=== PATIENT | male | born 1970 | race Caucasian/White ===

== ENCOUNTER 2016-04-25 11:21 | Inpatient (IN) | payer OTHER ==
[~2016-04-25] VITALS: Ht 170.2 cm; Wt 64.0 kg
[~2016-04-25 11:21] MED LIST: ALBUAER2 INH; ATR25 PO; CLX/20 PO; HYDR-5688 PO; PRED10TA PO
[2016-04-25] MEDS ORDERED: ONDANSETRON INJ 2 MG/ML 2 ML VIAL IV STA (11:33)
[2016-04-25] MEDS ORDERED: KETOROLAC TROMETHAMINE 30 MG/ML VIAL IV STA (11:33)
[2016-04-25] MEDS ORDERED: SODIUM CHLORIDE 0.9% 1000ML 1,000 ML IV STA (11:33)
[2016-04-25] MEDS ORDERED: LYR50 PO (11:41)
--- NOTE | 2016-04-25 11:43 | EMERGENCY ROOM VISIT NOTE ---
History Report prepared by Katie: Terri Agrawal Under the Supervision of: Dr. Vladimir Ennis M.D. First contact with patient: 11:33 Chief Complaint: FLU LIKE SX Stated Complaint: VOMITING, SWEATS, DIRRHEA, COUGH History of Present Illness The patient is a 46 year old male who presents to the Emergency Room with complaints of a persistent illness that began three weeks ago. He currently rates his discomfort as a 6/10 in severity. The patient states that three weeks ago he started with persistent vomiting and diarrhea. He additionally notes dizziness, weight loss, a cough, sore throat, diaphoresis, and shortness of breath today. The patient states that he saw his primary care physician for his symptoms and notes that he had a chest x-ray ordered. He denies any abdominal pain. The patient states that he takes medications for his chronic back pain. He states that he drinks approximately a twelve pack of beer each day, but states that he drank two beers yesterday. The patient notes that he smokes approximately one pack of cigarettes per day. He notes that he has an inhaler that he tried using, but denies any relief of his symptoms. Source of History: patient Onset: three weeks ago Position: other (global) Symptom Intensity: 6/10 Quality: other (illness) Timing: other (persistent) Associated Symptoms: + SOB, + cough, + diaphoresis, + diarrhea, + sorethroat , + vomiting, No abdominal pain Note: Associated Symptoms: dizziness, weight loss Review of Systems See HPI for pertinent positives & negatives. A total of 10 systems reviewed and were otherwise negative. Past Medical & Surgical Medical Problems: (1) Anxiety State Nos (2) Cannabis Use, Unspecified, Uncomplicated (3) Coronary Atherosclerosis Of [place] Coronary Vessel (4) Hypertension Nos (5) Tobacco Use Disorder Family History FH: cancer FH: diabetes mellitus FH: heart disease FH: hypertension Social History Smoking Status: Current Every Day Smoker Alcohol Use: occasionally Drug Use: marijuana Housing Status: lives with family Occupation Status: unemployed Current/Historical Medications Scheduled Gabapentin (Gabapentin), 300 MG PO QID Pregabalin (Lyrica), Unknown Dose PO DAILY Scheduled PRN Cyclobenzaprine Hcl (Flexeril), 10 MG PO TID PRN for Muscle Spasm Allergies Coded Allergies: No Known Allergies (Unverified , 04/25/16) Physical Exam Vital Signs Date Time Temp Pulse Resp B/P Pulse Ox O2 Delivery O2 Flow Rate FiO2 04/25/16 14:24 122/89 04/25/16 13:01 148/88 04/25/16 11:26 37.0 118 24 127/84 97 Room Air Physical Exam GENERAL: Patient is a healthy-appearing well-nourished HEAD: Normocephalic atraumatic EYES: Ocular movements intact pupils equal and react to light OROPHARYNX mucous membranes are moist no exudates present no erythema or edema present NECK: Supple no nuchal rigidity CHEST: Good equal expansion LUNGS: Slight wheeze on the right base CARDIAC: Normal S1 and S2 ABDOMEN: Soft nontender no guarding BACK: No CVA tenderness EXTREMITIES: No pain upon palpation normal muscle strength in all groups no clubbing cyanosis or edema NEURO: Patient is following commands is answering questions appropriately. Alert and oriented x3 Cranial Nerves 2-12 grossly intact Medical Decision & Procedures ER Provider Diagnostic Interpretation: X-ray results as stated below per my interpretation and radiologist interpretation. Other radiology results as stated below per my review and radiologist interpretation: CHEST ONE VIEW PORTABLE CLINICAL HISTORY: Shortness of breath. COMPARISON STUDY: No previous studies for comparison. FINDINGS: There is no pneumothorax or pleural effusion. Linear left lower lung opacity is noted. There is mild interstitial prominence. A tiny metallic density projects over the left upper hemithorax. Cardiac size is normal. Mediastinal contours are normal. An 8 mm nodular density within the right lower lung is noted. There is also nodular density within the right midlung. IMPRESSION: Mild interstitial thickening with a few nodular opacities within lungs. The findings may reflect an infectious process. Radiographic follow up is recommended to ensure resolution. Electronically signed by: Isaac Villareal M.D. 04/25/2016 12:26 PM Dictated Date/Time: 04/25/2016 12:[address] ANGIOGRAPHY OF THE CHEST, PULMONARY EMBOLUS PROTOCOL CLINICAL HISTORY: Shortness of breath, cough and vomiting. COMPARISON STUDY: Chest radiograph performed earlier today. TECHNIQUE: Following IV administration of 95 mL of Optiray-320, helical axial images of the chest were obtained utilizing the pulmonary embolus protocol. Maximal intensity projections and sagittal and coronal reformats were viewed on an independent 3D workstation. IV contrast was administered without complication. CT DOSE: 290.31 mGy.cm FINDINGS: No pulmonary emboli are identified. The size of the heart is normal. There is no pericardial effusion. No enlarged thoracic lymph nodes are present. The central airways are patent. There is moderate emphysema. Diffuse bronchial wall thickening is noted. There are multifocal groundglass opacities within the lungs that are predominantly peripheral in location. No pneumothorax or pleural effusion is present. There is no lobar consolidation. No cavitation is present. Bony thorax is unremarkable. Fatty infiltration of the liver is noted. Note is made of a 1.8 cm hypodense segment 7 hepatic lesion. IMPRESSION: 1. No pulmonary emboli identified. 2. Multifocal groundglass opacities throughout the lungs with mild diffuse bronchial wall thickening. The findings may represent an infectious process although other etiologies such as eosinophilic pneumonia could have this imaging appearance. A follow-up chest CT in 3 months to ensure resolution is recommended. 3. Moderate emphysema. 4. Fatty liver with an indeterminate 1.8 cm right hepatic lobe lesion. This lesion can be assessed on subsequent CT to ensure stability. Electronically signed by: Isaac Villareal M.D. 04/25/2016 1:31 PM Dictated Date/Time: 04/25/2016 1:15 PM Laboratory Results 04/25/16 11:55 Red Blood Count 5.53, Mean Corpuscular Volume 87.7, Mean Corpuscular Hemoglobin 33.1, Mean Corpuscular Hemoglobin Concent 37.7, Mean Platelet Volume 11.5, Neutrophils (%) (Auto) 75.8, Lymphocytes (%) (Auto) 6.7, Monocytes (%) (Auto) 16.9, Eosinophils (%) (Auto) 0.1, Basophils (%) (Auto) 0.1, Neutrophils # (Auto ) 6.24, Lymphocytes # (Auto) 0.55, Monocytes # (Auto) 1.39, Eosinophils # (Auto ) 0.01, Basophils # (Auto) 0.01 04/25/16 11:55 Test 04/25/16 11:55 04/25/16 12:00 04/25/16 12:01 04/25/16 13:56 White Blood Count 8.23 K/uL (4.8-10.8) Red Blood Count 5.53 M/uL (4.7-6.1) Hemoglobin 18.3 g/dL (14.0-18.0) Hematocrit 48.5 % (42-52) Mean Corpuscular Volume 87.7 fL (80-100) Mean Corpuscular Hemoglobin 33.1 pg (25-34) Mean Corpuscular Hemoglobin Concent 37.7 g/dl (32-36) Platelet Count 121 K/uL (130-400) Mean Platelet Volume 11.5 fL (7.4-10.4) Neutrophils (%) (Auto) 75.8 % Lymphocytes (%) (Auto) 6.7 % Monocytes (%) (Auto) 16.9 % Eosinophils (%) (Auto) 0.1 % Basophils (%) (Auto) 0.1 % Neutrophils # (Auto) 6.24 K/uL (1.4-6.5) Lymphocytes # (Auto) 0.55 K/uL (1.2-3.4) Monocytes # (Auto) 1.39 K/uL (0.11-0.59) Eosinophils # (Auto) 0.01 K/uL (0-0.5) Basophils # (Auto) 0.01 K/uL (0-0.2) RDW Standard Deviation 39.7 fL (36.4-46.3) RDW Coefficient of Variation 12.5 % (11.5-14.5) Immature Granulocyte % (Auto) 0.4 % Immature Granulocyte # (Auto) 0.03 K/uL (0.00-0.02) Est Creatinine Clear Calc Drug Dose 107.2 ml/min Estimated GFR () 125.9 Estimated GFR (Non- 108.6 BUN/Creatinine Ratio 3.5 (10-20) Calcium Level 9.2 mg/dl (8.5-10.1) Total Bilirubin 2.1 mg/dl (0.2-1) Direct Bilirubin 0.5 mg/dl (0-0.2) Aspartate Amino Transf (AST/SGOT) 54 U/L (15-37) Alanine Aminotransferase (ALT/SGPT) 97 U/L (12-78) Alkaline Phosphatase 89 U/L (45-117) Total Creatine Kinase 89 U/L (39-308) Creatine Kinase MB 0.9 ng/ml (0.5-3.6) Creatine Kinase MB Ratio 1.0 (0-3.0) Troponin I < 0.015 ng/ml (0-0.045) Total Protein 7.8 gm/dl (6.4-8.2) Albumin 3.9 gm/dl (3.4-5.0) Lipase 88 U/L (73-393) Bedside Hemoglobin 17.7 g/dl (14.0-18.0) Bedside Hematocrit 52 % (42-52) Bedside Sodium 129 mEq/L (135-144) Bedside Potassium 3.5 mEq/L (3.3-5.0) Bedside Chloride 90 mEq/L (101-112) Bedside Total CO2 26 mEq/l (24-31) Anion Gap 18.0 mmol/L (16-25) Bedside Blood Urea Nitrogen < 3 mg/dl (7-18) Bedside Creatinine 0.6 mg/dl (0.6-1.3) Bedside Glucose (other) 115 mg/dl (70-99) Bedside Ionized Calcium (Judd) 1.06 mmol/l (1.12-1.32) Bedside D-Dimer > 450 ng/mlFEU (0-450) Test 04/25/16 14:10 Labs reviewed by ED physician. Medications Administered Medications (Trade) Dose Ordered Sig/Marta Route Start Time Stop Time Status Last Admin Dose Admin Sodium Chloride (Nss 1000ml) 1,000 ml @ 999 mls/hr Q1H1M STAT IV 04/25/16 11:33 04/25/16 12:33 DC 04/25/16 12:13 999 MLS/HR Ketorolac Tromethamine (Toradol Inj) 30 mg NOW STAT IV 04/25/16 11:33 04/25/16 11:36 DC 04/25/16 12:13 30 MG Ondansetron HCl (Zofran Inj) 4 mg NOW STAT IV 04/25/16 11:33 04/25/16 11:36 DC 04/25/16 12:14 4 MG ED Course 1133: Past medical records reviewed. The patient was evaluated in room A2. A complete history and physical examination was performed. Ordered Zofran Inj 4 mg IV, Toradol Inj 30 mg IV, Sodium Chloride 1000 ml @ 999 mls/hr IV. 1337: I reevaluated the patient and he is resting comfortably. I discussed the exam findings with him and I discussed the treatment plan. He verbalized complete understanding and agreement. He will be evaluated for further treatment. 1343: Ordered Vancomycin HCl 1000 mg/Sodium Chloride 270 ml @ 125 mls//hr IV, Zosyn IV 4.5 gm IV. 1345: Ordered Levofloxacin 500 mg IV. 1351: I discussed the patient's case with Fern Becerra. He is going to evaluate the patient for further treatment. Medical Decision Differential diagnosis: Etiologies such as infections, reactive airway disease, pneumonia, pneumothorax , COPD, CHF, cardiac ischemia, pulmonary embolism, musculoskeletal, gastrointestinal, as well as others were entertained. This is a 46-year-old male who presents emergency department complaining of weight loss, night sweats as well as cough that is been ongoing for the past 3 weeks. The patient is an alcoholic and admits to drinking 12 beers per day. IV was established, the patient given normal saline bolus, Zosyn, Levaquin, vancomycin. Blood cultures were obtained. The patient's CAT scan is concerning for what appears to be a pneumonitis. I did discuss the case with the hospitalist service who agreed to admit the patient. Patient was in agreement with treatment plan. Consults Time Called: 1343 Consulting Physician: Fern Becerra Returned Call: [phone] I discussed the patient's case with Fren Becerra. He is going to evaluate the patient for further treatment. Impression Primary Impression: Pneumonia Scribe Attestation The scribe's documentation has been prepared under my direction and personally reviewed by me in its entirety. I confirm that the note above accurately reflects all work, treatment, procedures, and medical decision making performed by me. Departure Information Dispostion Being Evaluated By Hospitalist Referrals No Doctor, Assigned (PCP)
[2016-04-25 12:14] LABS: BASO % 0.1 %; BASO ABS # 0.01 K/uL (0-0.2); COMPLETE YES; EOS % 0.1 %; HEMATOCRIT 48.5 % (42-52); IG% 0.4 %; LYMPH % 6.7 %; LYMPH ABS # 0.55 K/uL (1.2-3.4); MEAN CELL VOLUME 87.7 fL (80-100); MEAN CORPUSCULAR HEMOGLOBIN 33.1 pg (25-34); MEAN CORPUSCULAR HGB CONC 37.7 g/dl (32-36); MEAN PLATELET VOLUME 11.5 fL (7.4-10.4); MONO % 16.9 %; NEUT % 75.8 %; PLATELET COUNT 121 K/uL (130-400); RED BLOOD COUNT 5.53 M/uL (4.7-6.1); WHITE BLOOD COUNT 8.23 K/uL (4.8-10.8)
--- NOTE | 2016-04-25 12:28 | DIAGNOSTIC IMAGING REPORT ---
CHEST ONE VIEW PORTABLE CLINICAL HISTORY: Shortness of breath. COMPARISON STUDY: No previous studies for comparison. FINDINGS: There is no pneumothorax or pleural effusion. Linear left lower lung opacity is noted. There is mild interstitial prominence. A tiny metallic density projects over the left upper hemithorax. Cardiac size is normal. Mediastinal contours are normal. An 8 mm nodular density within the right lower lung is noted. There is also nodular density within the right midlung. IMPRESSION: Mild interstitial thickening with a few nodular opacities within lungs. The findings may reflect an infectious process. Radiographic follow up is recommended to ensure resolution. Electronically signed by: Isaac Villareal M.D. 04/25/2016 12:26 PM Dictated Date/Time: 04/25/2016 12:24 PM
[2016-04-25 12:42] LABS: ALT/SGPT 97 U/L (12-78); AST/SGOT 54 U/L (15-37); BLOOD UREA NITROGEN 3 mg/dl (7-18); BUN/CREATININE RATIO 3.5 (10-20); CALCIUM 9.2 mg/dl (8.5-10.1); CARBON DIOXIDE 27 mmol/L (21-32); CHLORIDE 91 mmol/L (98-107); GLUCOSE 110 mg/dl (70-99); POTASSIUM 3.3 mmol/L (3.5-5.1); SODIUM 128 mmol/L (136-145)
[2016-04-25 12:47] LABS: ALKALINE PHOSPHATASE 89 U/L (45-117)
[2016-04-25] MEDS ORDERED: OPTIRAY 320 IV PRN (13:15)
[2016-04-25 13:27] LABS: ISTAT CARBON DIOXIDE 26 mEq/l (24-31); ISTAT CHLORIDE 90 mEq/L (101-112); ISTAT CREATININE 0.6 mg/dl (0.6-1.3); ISTAT HEMATOCRIT 52 % (42-52); ISTAT HEMOGLOBIN 17.7 g/dl (14.0-18.0); ISTAT IONIZED CALCIUM 1.06 mmol/l (1.12-1.32); ISTAT SODIUM 129 mEq/L (135-144)
--- NOTE | 2016-04-25 13:33 | DIAGNOSTIC IMAGING REPORT ---
CT ANGIOGRAPHY OF THE CHEST, PULMONARY EMBOLUS PROTOCOL CLINICAL HISTORY: Shortness of breath, cough and vomiting. COMPARISON STUDY: Chest radiograph performed earlier today. TECHNIQUE: Following IV administration of 95 mL of Optiray-320, helical axial images of the chest were obtained utilizing the pulmonary embolus protocol. Maximal intensity projections and sagittal and coronal reformats were viewed on an independent 3D workstation. IV contrast was administered without complication. CT DOSE: 290.31 mGy.cm FINDINGS: No pulmonary emboli are identified. The size of the heart is normal. There is no pericardial effusion. No enlarged thoracic lymph nodes are present. The central airways are patent. There is moderate emphysema. Diffuse bronchial wall thickening is noted. There are multifocal groundglass opacities within the lungs that are predominantly peripheral in location. No pneumothorax or pleural effusion is present. There is no lobar consolidation. No cavitation is present. Bony thorax is unremarkable. Fatty infiltration of the liver is noted. Note is made of a 1.8 cm hypodense segment 7 hepatic lesion. IMPRESSION: 1. No pulmonary emboli identified. 2. Multifocal groundglass opacities throughout the lungs with mild diffuse bronchial wall thickening. The findings may represent an infectious process although other etiologies such as eosinophilic pneumonia could have this imaging appearance. A follow-up chest CT in 3 months to ensure resolution is recommended. 3. Moderate emphysema. 4. Fatty liver with an indeterminate 1.8 cm right hepatic lobe lesion. This lesion can be assessed on subsequent CT to ensure stability. Electronically signed by: Isaac Villareal M.D. 04/25/2016 1:31 PM Dictated Date/Time: 04/25/2016 1:15 PM
[2016-04-25] MEDS ORDERED: VANCOMYCIN INJ 1,000 MG in SODIUM CHLORIDE 0.9% 250ML 250 ML IV STA (13:43)
[2016-04-25] MEDS ORDERED: PIPERACILLIN/TAZOBACTAM 4.5 GM/100ML D5W IV STA (13:43)
[2016-04-25] MEDS ORDERED: LEVAQUIN 500MG / 100ML D5W IV ONE (13:45)
[2016-04-25] MEDS ORDERED: TRAM-10 PO (14:44)
[2016-04-25] MEDS ORDERED: DICL-201 PO (14:44)
[2016-04-25] MEDS ORDERED: HYDR-3126 PO (14:44)
[2016-04-25] MEDS ORDERED: POTASSIUM CHLORIDE 10 MEQ TABCR PO SCH (14:45)
[2016-04-25] MEDS ORDERED: IBUPROFEN 200 MG TAB PO PRN (15:15)
[2016-04-25] MEDS ORDERED: LORAZEPAM 2 MG/ML 1 ML VIAL IV PRN (15:15)
[2016-04-25] MEDS ORDERED: GABAPENTIN 600 MG TAB PO SCH (15:15)
[2016-04-25] MEDS ORDERED: ONDANSETRON INJ 2 MG/ML 2 ML VIAL IV PRN (15:15)
[2016-04-25] MEDS ORDERED: PIPERACILL/TAZOBAC CONSULT ACTIVE PRN (15:30)
--- NOTE | 2016-04-25 15:36 | History and Physical ---
History & Physical Date & Time of Service: Apr 25, 2016 at 14:53 Chief Complaint: N/V/D, Sinus Congestion, Cough, Shortness of Breath Primary Care Physician: Rosy Reyes M.D. (MEDICAL) History of Present Illness 46 year old male who presents to the ER with complaints of nausea, vomiting, diarrhea, sinus congestion, cough, and shortness of breath. Patient reports he started to get about a month and a half ago. After review of records, patient was evaluated by his PCP on 02/29/16 and was given Augmentin. He was evaluated again on 03/09/16 and had no improvement in his symptoms so he then was given a z-pack. Patient reports he continues to feel poor. He notes no improvement in his symptoms since taking the antibiotics. He symptoms got acutely worse over the past few days. He reports he developed shortness of breath last evening. He reports an occasional cough productive for a small amount of white sputum. He reports multiple episodes of vomiting and diarrhea over the past few days. He denies hematemesis, coffee ground emesis, BRBPR, or dark tarry stools. No abdominal pain. He feels as though he has lost weight but he is unsure of how much. He did not take his temperature at home but reports several episodes of extensive diaphoresis. He drinks 6-12 beers on a daily basis; last drink was yesterday afternoon. He denies chest pain, lightheadedness, dizziness, or syncopal events. In the ER, patient had a CT chest that showed multifocal groundglass opacities throughout the lungs with mild diffuse bronchial wall thickening suggesting an infectious process although other etiologies such as eosinophilic pneumonia could have this imaging appearance. Na+ is found to be 128, he had mild elevation in his LFTs. Patient was given IVF, Vanco, Zosyn, and Levaquin. Past Medical/Surgical History Medical Problems: (1) Anxiety Status: Chronic (2) Chronic back pain Status: Chronic (3) Edentulous Status: Chronic (4) ETOH abuse Status: Chronic Surgical Problems: (1) History of dental surgery Status: Chronic Family History FH: heart disease FATHER ([place] in his 50s) FH: throat cancer GRANDFATHER unsure of his mother's and sisters' PMH Social History Smoking Status: Current Every Day Smoker Alcohol Use: heavy (6-12 beers/day) Immunizations History of Tetanus Vaccine?: Yes Tetanus Immunization Date: Apr 14, 2015 Multi-Drug Resistant Organisms History of MDRO: No Allergies Coded Allergies: No Known Allergies (Unverified , 04/25/16) Home Medications Scheduled Pregabalin (Lyrica), 50 MG PO BID Scheduled PRN Albuterol Sulfate (Proair Respiclick), 2 PUFF INH QID PRN for SOB/Wheezing Diclofenac (Voltaren), 75 MG PO BID PRN for Pain Gabapentin (Gabapentin), 300 MG PO QID PRN for Pain Hydroxyzine Hcl (Atarax), 25 MG PO QID PRN for Anxiety Tramadol (Ultram), 50 MG PO Q8H PRN for Pain Review of Systems 10 point review of systems was completed with the pertinent positives and negatives noted per the HPI Physical Exam Vital Signs Date Time Temp Pulse Resp B/P Pulse Ox O2 Delivery O2 Flow Rate FiO2 04/25/16 14:24 122/89 04/25/16 13:01 148/88 04/25/16 11:26 37.0 118 24 127/84 97 Room Air General Appearance: no apparent distress Head: normocephalic Eyes: normal inspection ENT: hearing grossly normal Neck: supple, no JVD Respiratory/Chest: no respiratory distress, + decreased breath sounds, + wheezing (scattered BL, L > R ) Cardiovascular: regular rate, rhythm, no edema, normal peripheral pulses Abdomen/GI: normal bowel sounds, non tender, soft Extremities/Musculoskelatal: normal inspection, no calf tenderness Neurologic/Psych: no motor/sensory deficits, alert, normal mood/affect, oriented x 3 Skin: normal color, + diaphoresis Diagnostics Laboratory Results Results Past 24 Hours Test 04/25/16 11:39 04/25/16 11:55 04/25/16 12:00 04/25/16 12:01 Range/Units Creatine Kinase MB Ratio 1.0 0-3.0 White Blood Count 8.23 4.8-10.8 K/uL Red Blood Count 5.53 4.7-6.1 M/uL Hemoglobin 18.3 14.0-18.0 g/dL Hematocrit 48.5 42-52 % Mean Corpuscular Volume 87.7 80-100 fL Mean Corpuscular Hemoglobin 33.1 25-34 pg Mean Corpuscular Hemoglobin Concent 37.7 32-36 g/dl Platelet Count 121 130-400 K/uL Mean Platelet Volume 11.5 7.4-10.4 fL Neutrophils (%) (Auto) 75.8 % Lymphocytes (%) (Auto) 6.7 % Monocytes (%) (Auto) 16.9 % Eosinophils (%) (Auto) 0.1 % Basophils (%) (Auto) 0.1 % Neutrophils # (Auto) 6.24 1.4-6.5 K/uL Lymphocytes # (Auto) 0.55 1.2-3.4 K/uL Monocytes # (Auto) 1.39 0.11-0.59 K/uL Eosinophils # (Auto) 0.01 0-0.5 K/uL Basophils # (Auto) 0.01 0-0.2 K/uL RDW Standard Deviation 39.7 36.4-46.3 fL RDW Coefficient of Variation 12.5 11.5-14.5 % Immature Granulocyte % (Auto) 0.4 % Immature Granulocyte # (Auto) 0.03 0.00-0.02 K/uL Sodium Level 128 136-145 mmol/L Potassium Level 3.3 3.5-5.1 mmol/L Chloride Level 91 98-107 mmol/L Carbon Dioxide Level 27 21-32 mmol/L Anion Gap 10.0 18.0 16-25 mmol/L Blood Urea Nitrogen 3 7-18 mg/dl Creatinine 0.80 0.60-1.40 mg/dl Est Creatinine Clear Calc Drug Dose 107.2 ml/min Estimated GFR () 125.9 Estimated GFR (Non- 108.6 BUN/Creatinine Ratio 3.5 10-20 Random Glucose 110 70-99 mg/dl Calcium Level 9.2 8.5-10.1 mg/dl Total Bilirubin 2.1 0.2-1 mg/dl Direct Bilirubin 0.5 0-0.2 mg/dl Aspartate Amino Transf (AST/SGOT) 54 15-37 U/L Alanine Aminotransferase (ALT/SGPT) 97 12-78 U/L Alkaline Phosphatase 89 45-117 U/L Total Creatine Kinase 89 39-308 U/L Creatine Kinase MB 0.9 0.5-3.6 ng/ml Troponin I < 0.015 0-0.045 ng/ml Total Protein 7.8 6.4-8.2 gm/dl Albumin 3.9 3.4-5.0 gm/dl Lipase 88 73-393 U/L Bedside Hemoglobin 17.7 14.0-18.0 g/dl Bedside Hematocrit 52 42-52 % Bedside Sodium 129 135-144 mEq/L Bedside Potassium 3.5 3.3-5.0 mEq/L Bedside Chloride 90 101-112 mEq/L Bedside Total CO2 26 24-31 mEq/l Bedside Blood Urea Nitrogen < 3 7-18 mg/dl Bedside Creatinine 0.6 0.6-1.3 mg/dl Bedside Glucose (other) 115 70-99 mg/dl Bedside Ionized Calcium (Judd) 1.06 1.12-1.32 mmol/l Bedside D-Dimer > 450 0-450 ng/mlFEU Test 04/25/16 14:10 04/25/16 14:34 04/25/16 14:36 04/25/16 14:37 Range/Units Microbiology Results 04/25/16 Blood Culture, Received Pending 04/25/16 Blood Culture, Received Pending Diagnostic Radiology CXR IMPRESSION: Mild interstitial thickening with a few nodular opacities within lungs. The findings may reflect an infectious process. Radiographic follow up is recommended to ensure resolution. CTA CHEST IMPRESSION: 1. No pulmonary emboli identified. 2. Multifocal groundglass opacities throughout the lungs with mild diffuse bronchial wall thickening. The findings may represent an infectious process although other etiologies such as eosinophilic pneumonia could have this imaging appearance. A follow-up chest CT in 3 months to ensure resolution is recommended. 3. Moderate emphysema. 4. Fatty liver with an indeterminate 1.8 cm right hepatic lobe lesion. This lesion can be assessed on subsequent CT to ensure stability. Impression Assessment and Plan PNEUMONIA - admit to med/surg - no signs of sepsis - CT showing multifocal pneumonia, possible eosinophilic pneumonia - consider aspiration due to patient's drinking history - saturating well on room air - s/p Levaquin, Zosyn, and Vanco in ED - will continue with Levaquin and Zosyn for now and add back Vanco if MRSA nasal swab positive - influenza swab pending - nebs - blood and sputum cultures - will need follow up CT chest in 3 months HYPONATREMIA - likely chronic due to ETOH use - check serum and urine osmo - s/p 1 iter NSS in ED, starting banana bag now @ 125ml/hr, recheck Na+ at 1800 N/V/D - ? viral gastroenteritis - check stool studies - continue with supportive care with IVF, PRN antiemetics ETOH ABUSE - reports drinking 6-12 beers/day, last drink yesterday afternoon - start ETOH withdrawal protocol with gabapentin ELEVATED D. DIMER - CT negative for PE - check BLLE dopplers LIVER LESION - 1.8cm right hepatic lesion noted on CT chest - will need follow up CT DVT PROPHYLAXIS - SCDs DISPO - In my clinical judgment this beneficiary meets acute admission criteria, established by [facility], that includes being hospitalized through two midnights. VTE Prophylaxis VTE Risk Assessment Done? Y/N: Yes Risk Level: Low Note ATTENDING ADDENDUM Record reviewed. Patient interviewed and examined in ED. Care coordinated with PANDA Gonzalez. Please refer to her documentation for patient's history. Briefly, 46 YO male who presented to ED with 2 week history of fever, cough, nausea, vomiting, diarrhea. EXAM: General- no acute distress VS- as noted HEENT- anicteric Lungs- diffuse moderate wheezing Heart- RRR Abdomen- + BS, soft, nontender Extremities- no pretibial edema or calf tenderness Neuro- alert, oriented DATA: Lab studies as noted. ASSESSMENT AND PLAN: 2 week history of fever, cough, nausea, vomiting, diarrhea. [employer] swab for influenza A / B negative per PCR. Chest x-ray demonstrated nodular densities. CTA chest negative for PE, but demonstrated diffuse bronchial wall thickening, multifocal ground-glass opacities, fatty infiltration of liver, 1.8 cm right hepatic lobe lesion. Started on piperacillin / tazobactam + levofloxacin in ED for possible aspiration pneumonia. ? viral infection. ? other pulmonary pathology. Consider steroids for bronchospasm if no improvement. Consult Pulmonary Medicine re: abnormal CT chest. 1.8 cm right hepatic lobe lesion incidentally noted on CTA of chest. Will need follow-up, further evaluation / consultation as outpatient. Reportedly drinks about 12 cans of beer daily. MVI, folate, thiamine. Alcohol withdrawal protocol utilizing gabapentin. Please refer to GONZALEZ Evans's documentation for discussion of other issues. Killian Porter MD .
[2016-04-25 15:57] LABS: INFLUENZA A PCR Neg for Influ A (NEG); INFLUENZA B PCR Neg for Influ B (NEG)
[2016-04-25 17:39] VITALS: BP 123/73; PULSE 98; TEMP 36.8; O2SAT 98
[2016-04-25] MEDS ORDERED: GABAPENTIN 1200MG LOADING DOSE PO SCH (18:00)
[2016-04-25] MEDS ORDERED: MULTI-VITAMIN INFUSION INJ 10 ML, THIAMINE HCL INJ 100 MG, FoLIC ACID INJ 1 MG in SODIU... IV SCH (18:00)
[2016-04-25] MEDS ORDERED: PIPERACILL/TAZOBAC IV 3.375 GM in DEXTROSE 5% 100ML IV ONE (19:00)
[2016-04-25] MEDS: NICOTINE 14 MG/24 HR TDSY TD SCH (19:07)
[2016-04-25] MEDS: ALBUT/IPRATROP 3MG/0.5MG NEB 3 ML VIAL INH SCH ×2 (19:21→19:50)
[2016-04-25 19:42] LABS: BUN/CREATININE RATIO 5.9 (10-20); CALCIUM 8.4 mg/dl (8.5-10.1); CREATININE 0.78 mg/dl (0.60-1.40); POTASSIUM 3.7 mmol/L (3.5-5.1)
[2016-04-25 19:50] VITALS: BP 123/73; PULSE 98; TEMP 36.8; O2SAT 95; Ht 170.2 cm; Wt 64.0 kg
[2016-04-25 19:54] VITALS: PULSE 95; O2SAT 97
[2016-04-25] MEDS ORDERED: PIPERACILL/TAZOBAC IV 3.375 GM in DEXTROSE 5% 100ML IV SCH (20:00)
[2016-04-25] MEDS: PREGABALIN 50 MG CAP PO SCH (20:23)
[2016-04-25] MEDS ORDERED: CYCL10TA6 PO (20:34)
[2016-04-25 21:35] LABS: URINE APPEARANCE CLEAR (CLEAR); URINE COLOR DK YELLOW; URINE EPITHELIAL CELL AUTO >30 /lpf (0-5); URINE NITRITE NEG (NEG); URINE PH 6.5 (4.5-7.5); URINE SPECIFIC GRAVITY > 1.045 (1.000-1.030); UROBILINOGEN NEG (NEG)
[2016-04-25 21:44] LABS: MANUAL MICROSCOPIC REQUIRED? NO; REVIEW REQ? YES; URINE BILIRUBIN NEG (NEG)
--- NOTE | 2016-04-25 21:50 | DIAGNOSTIC IMAGING REPORT ---
BILATERAL LOWER EXTREMITY VENOUS DOPPLER HISTORY: elevated d. dimer COMPARISON STUDY: None. FINDINGS: There is normal compressibility, flow, and augmentation within the bilateral lower extremity deep venous systems. IMPRESSION: No DVT within the right or left lower extremity. Electronically signed by: Lázaro Pérez M.D. 04/25/2016 9:48 PM Dictated Date/Time: 04/25/2016 9:48 PM
[2016-04-25 21:58] VITALS: BP 151/82; PULSE 93; TEMP 37.1; O2SAT 95
[2016-04-25 23:29] VITALS: BP 130/90; PULSE 94; TEMP 36.8; O2SAT 95
[2016-04-26] MEDS: GABAPENTIN 600MG Q6H DOSE PO SCH ×2 (00:06→05:22)
[2016-04-26 06:28] LABS: HEMATOCRIT 37.6 % (42-52); MEAN CELL VOLUME 89.1 fL (80-100); MEAN CORPUSCULAR HEMOGLOBIN 32.2 pg (25-34); MEAN CORPUSCULAR HGB CONC 36.2 g/dl (32-36); MEAN PLATELET VOLUME 11.7 fL (7.4-10.4); PLATELET COUNT 104 K/uL (130-400); RED BLOOD COUNT 4.22 M/uL (4.7-6.1); WHITE BLOOD COUNT 6.93 K/uL (4.8-10.8)
[2016-04-26 07:01] LABS: ALT/SGPT 56 U/L (12-78); BLOOD UREA NITROGEN 4 mg/dl (7-18); BUN/CREATININE RATIO 8.6 (10-20); CALCIUM 7.8 mg/dl (8.5-10.1); CARBON DIOXIDE 24 mmol/L (21-32); CHLORIDE 96 mmol/L (98-107); CREATININE 0.44 mg/dl (0.60-1.40); GLUCOSE 82 mg/dl (70-99); POTASSIUM 3.2 mmol/L (3.5-5.1); SODIUM 131 mmol/L (136-145)
[2016-04-26 07:10] LABS: ALKALINE PHOSPHATASE 53 U/L (45-117); AST/SGOT 31 U/L (15-37)
[2016-04-26 07:39] VITALS: PULSE 82; O2SAT 97
[2016-04-26] MEDS: ALBUT/IPRATROP 3MG/0.5MG NEB 3 ML VIAL INH SCH ×2 (07:39→11:30)
[2016-04-26] MEDS: PREGABALIN 50 MG CAP PO SCH (07:53)
[2016-04-26] MEDS: NICOTINE 14 MG/24 HR TDSY TD SCH (07:53)
--- NOTE | 2016-04-26 08:34 | Pulmonary Consultation ---
History General Date of Service: Apr 26, 2016. Stated Complaint: Hyponatremia, Pneumonia, Cough with shortness of breath HPI The patient is a 46 year old male who presents to [facility] with complaints of Hyponatremia, Pneumonia. The patient's primary care provider is Rosy Reyes M.D. (MEDICAL). 46-year-old gentleman who presented to [facility] with a 3 week history of persistent nausea and diarrhea. Over the 3 days prior to admission he also noted a nonproductive cough, throat pain with associated dysphagia, diaphoresis and dyspnea on exertion. He also noted weight loss in the last 3 weeks. He denies any sick contacts in the last 4-6 weeks. He does note a heavy alcohol intake as well as cannabis, no new supplies for his cannabis noted. He smokes approximately one pack of cigarettes per day and is unemployed secondary to chronic back pain. He denies, classic cardiac chest pain , pleurisy, abdominal pain, hemoptysis or hematochezia. I should also note that 3 days prior to his admission the patient started to experience global headache with mild vertigo. Historian: patient, EMS Review of Systems Constitutional: reports: malaise, weakness Eyes: reports: no symptoms ENT: reports: sore throat Cardiovascular: reports: no symptoms Respiratory: reports: HEAD, cough Gastrointestinal: reports: diarrhea, nausea, vomiting Genitourinary - Male: reports: no symptoms Musculoskeletal: reports: myalgias Integumentary: reports: no symptoms Neurologic: reports: general weakness, vertigo Psychiatric: reports: no symptoms Endocrine: no symptoms Hematologic / Lymphatic: no symptoms Allergic / Immunologic: no symptoms Past Medical History Past Medical History: 1. Back pain 2. Lumbar disc disease (L4 to L5 and L5 to S1 3. Pain in hand 4. Pain, wrist joint 5. Sciatica 6. Cannabis use 7. CAD 8. HTN 9. anxiety Past Surgical History: none Family History FH: heart disease FATHER ([place] in his 50s) FH: throat cancer GRANDFATHER Social History 1. Alcohol Use 2. Current every day smoker 3. Denied: History of Drug Use 4. Marital History - Single 5. 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 Tobacco use Hx Tobacco Use In Past Year?: Yes Smoking Status: Current Every Day Smoker Immunizations History of Tetanus Vaccine?: Yes Tetanus Immunization Date: Apr 14, 2015 History of MDRO History of MDRO: No Allergies Coded Allergies: No Known Allergies (Unverified , 04/25/16) Current Medications Reported Home Medications Medications Dose Route/Sig Max Daily Dose Days Date Category Dose Instructions Atarax (Hydroxyzine Hcl) 50 Mg Tab 25 Mg PO QID PRN 04/25/16 Reported Ultram (Tramadol HCl) 50 Mg Tab 50 Mg PO Q8H PRN 04/25/16 Reported Voltaren (Diclofenac Sodium) 75 Mg Tabcr 75 Mg PO BID PRN 04/25/16 Reported WITH FOOD Proair Respiclick (Albuterol Sulfate) 108 Mcg/Act Aer 2 Puff INH QID PRN 04/25/16 Reported Lyrica (Pregabalin) 50 Mg Cap 50 Mg PO BID 04/25/16 Reported Gabapentin 300 Mg Cap 300 Mg PO QID PRN 11/25/15 Reported Physical Physical Exam Vital Signs: Date Time Temp Pulse Resp B/P Pulse Ox O2 Delivery O2 Flow Rate FiO2 04/26/16 00:00 Room Air 04/25/16 23:29 36.8 94 18 130/90 95 Room Air 04/25/16 21:58 37.1 93 18 151/82 95 Room Air 04/25/16 19:54 95 14 97 Room Air 04/25/16 19:50 36.8 98 18 123/73 95 Room Air 04/25/16 17:39 36.8 98 18 123/73 98 Room Air 04/25/16 17:18 93 14 126/72 98 04/25/16 16:41 93 14 126/72 98 Room Air 04/25/16 14:24 122/89 04/25/16 13:01 148/88 04/25/16 11:26 37.0 118 24 127/84 97 Room Air General Appearance: WELL-APPEARING Head: NORMOCEPHALIC, ATRAUMATIC Eyes: PERRLA, NO DISCHARGE, EOMI, SCLERAE NORMAL ENT: pharynx erythematous Neck: NORMAL RANGE OF MOTION, NO TENDERNESS, TRACHEA MIDLINE, NO STRIDOR, SUPPLE Respiratory: wheezing Cardiovasular: REGULAR RATE/RHYTHM, NORMAL S1S2, NO M/G/R, NO MURMUR, NO GALLOP Abdomen: NON TENDER, NORMAL BOWEL SOUNDS, NO REBOUND, NO MASSES, NO GUARDING Genitourinary - Male: EXTERNAL GENITALIA NORMAL Back: NORMAL INSPECTION, NO MIDLINE TENDERNESS, NO CVA TENDERNESS, NO PARAVERTEBRAL TTP Upper Extremities: NO EDEMA Lower Extremities: NO EDEMA Pulses: carotid (R) (2+), carotid (L) (2+), dorsalis pedis (R) (2+), dorsalis pedis (L) (2+) Neuro: ALERT, ORIENTED x 3, NORMAL MOTOR EXAM, NORMAL SENSATION Reflexes: biceps (R) (2+), bicpes (L) (2+) Babinski Testing: right (downgoing), left (downgoing) Psychiatric: NORMAL AFFECT, NO SUICIDAL IDEATION Diagnostics Labs Results Past 24 Hours Test 04/25/16 11:39 04/25/16 11:55 04/25/16 12:00 04/25/16 12:01 Range/Units Creatine Kinase MB Ratio 1.0 0-3.0 White Blood Count 8.23 4.8-10.8 K/uL Red Blood Count 5.53 4.7-6.1 M/uL Hemoglobin 18.3 14.0-18.0 g/dL Hematocrit 48.5 42-52 % Mean Corpuscular Volume 87.7 80-100 fL Mean Corpuscular Hemoglobin 33.1 25-34 pg Mean Corpuscular Hemoglobin Concent 37.7 32-36 g/dl Platelet Count 121 130-400 K/uL Mean Platelet Volume 11.5 7.4-10.4 fL Neutrophils (%) (Auto) 75.8 % Lymphocytes (%) (Auto) 6.7 % Monocytes (%) (Auto) 16.9 % Eosinophils (%) (Auto) 0.1 % Basophils (%) (Auto) 0.1 % Neutrophils # (Auto) 6.24 1.4-6.5 K/uL Lymphocytes # (Auto) 0.55 1.2-3.4 K/uL Monocytes # (Auto) 1.39 0.11-0.59 K/uL Eosinophils # (Auto) 0.01 0-0.5 K/uL Basophils # (Auto) 0.01 0-0.2 K/uL RDW Standard Deviation 39.7 36.4-46.3 fL RDW Coefficient of Variation 12.5 11.5-14.5 % Immature Granulocyte % (Auto) 0.4 % Immature Granulocyte # (Auto) 0.03 0.00-0.02 K/uL Sodium Level 128 136-145 mmol/L Potassium Level 3.3 3.5-5.1 mmol/L Chloride Level 91 98-107 mmol/L Carbon Dioxide Level 27 21-32 mmol/L Anion Gap 10.0 18.0 16-25 mmol/L Blood Urea Nitrogen 3 7-18 mg/dl Creatinine 0.80 0.60-1.40 mg/dl Est Creatinine Clear Calc Drug Dose 107.2 ml/min Estimated GFR () 125.9 Estimated GFR (Non- 108.6 BUN/Creatinine Ratio 3.5 10-20 Random Glucose 110 70-99 mg/dl Calcium Level 9.2 8.5-10.1 mg/dl Magnesium Level 2.3 1.8-2.4 mg/dl Total Bilirubin 2.1 0.2-1 mg/dl Direct Bilirubin 0.5 0-0.2 mg/dl Aspartate Amino Transf (AST/SGOT) 54 15-37 U/L Alanine Aminotransferase (ALT/SGPT) 97 12-78 U/L Alkaline Phosphatase 89 45-117 U/L Total Creatine Kinase 89 39-308 U/L Creatine Kinase MB 0.9 0.5-3.6 ng/ml Troponin I < 0.015 0-0.045 ng/ml Total Protein 7.8 6.4-8.2 gm/dl Albumin 3.9 3.4-5.0 gm/dl Lipase 88 73-393 U/L Bedside Hemoglobin 17.7 14.0-18.0 g/dl Bedside Hematocrit 52 42-52 % Bedside Sodium 129 135-144 mEq/L Bedside Potassium 3.5 3.3-5.0 mEq/L Bedside Chloride 90 101-112 mEq/L Bedside Total CO2 26 24-31 mEq/l Bedside Blood Urea Nitrogen < 3 7-18 mg/dl Bedside Creatinine 0.6 0.6-1.3 mg/dl Bedside Glucose (other) 115 70-99 mg/dl Bedside Ionized Calcium (Judd) 1.06 1.12-1.32 mmol/l Bedside D-Dimer > 450 0-450 ng/mlFEU Test 04/25/16 14:10 04/25/16 14:36 04/25/16 16:00 04/25/16 19:00 Range/Units Influenza Type A (RT-PCR) Neg for Influ A NEG Influenza Type B (RT-PCR) Neg for Influ B NEG Osmolality 271 280-300 mOsm/kg Sodium Level 131 136-145 mmol/L Potassium Level 3.7 3.5-5.1 mmol/L Chloride Level 94 98-107 mmol/L Carbon Dioxide Level 28 21-32 mmol/L Anion Gap 9.0 3-11 mmol/L Blood Urea Nitrogen 5 7-18 mg/dl Creatinine 0.78 0.60-1.40 mg/dl Est Creatinine Clear Calc Drug Dose 109.9 ml/min Estimated GFR () 127.2 Estimated GFR (Non- 109.8 BUN/Creatinine Ratio 5.9 02-03 Random Glucose 104 70-99 mg/dl Calcium Level 8.4 8.5-10.1 mg/dl Test 04/25/16 20:45 04/26/16 05:59 Range/Units Urine Color DK YELLOW Urine Appearance CLEAR CLEAR Urine pH 6.5 4.5-7.5 Urine Specific [place] > 1.045 1.000-1.030 Urine Protein 1+ NEG Urine Glucose (UA) NEG NEG Urine Ketones TRACE NEG Urine Occult Blood TRACE NEG Urine Nitrite NEG NEG Urine Bilirubin NEG NEG Urine Urobilinogen NEG NEG Urine Leukocyte Esterase NEG NEG Urine WBC (Auto) 1-5 0-5 /hpf Urine RBC (Auto) 0-4 0-4 /hpf Urine Hyaline Casts (Auto) 5-10 0-5 /lpf Urine Epithelial Cells (Auto) >30 0-5 /lpf Urine Bacteria (Auto) 1+ NEG Urine Renal Epithelial Cells 0-5 /lpf Urine Osmolality 551 500-800 mOms/kg White Blood Count 6.93 4.8-10.8 K/uL Red Blood Count 4.22 4.7-6.1 M/uL Hemoglobin 13.6 14.0-18.0 g/dL Hematocrit 37.6 42-52 % Mean Corpuscular Volume 89.1 80-100 fL Mean Corpuscular Hemoglobin 32.2 25-34 pg Mean Corpuscular Hemoglobin Concent 36.2 32-36 g/dl RDW Standard Deviation 40.2 36.4-46.3 fL RDW Coefficient of Variation 12.5 11.5-14.5 % Platelet Count 104 130-400 K/uL Mean Platelet Volume 11.7 7.4-10.4 fL Sodium Level 131 136-145 mmol/L Potassium Level 3.2 3.5-5.1 mmol/L Chloride Level 96 98-107 mmol/L Carbon Dioxide Level 24 21-32 mmol/L Anion Gap 11.0 3-11 mmol/L Blood Urea Nitrogen 4 7-18 mg/dl Creatinine 0.44 0.60-1.40 mg/dl Est Creatinine Clear Calc Drug Dose 193.9 ml/min Estimated GFR () > 150.0 Estimated GFR (Non- 138.9 BUN/Creatinine Ratio 8.6 10-20 Random Glucose 82 70-99 mg/dl Calcium Level 7.8 8.5-10.1 mg/dl Total Bilirubin 1.5 0.2-1 mg/dl Aspartate Amino Transf (AST/SGOT) 31 15-37 U/L Alanine Aminotransferase (ALT/SGPT) 56 12-78 U/L Alkaline Phosphatase 53 45-117 U/L Total Protein 5.6 6.4-8.2 gm/dl Albumin 2.8 3.4-5.0 gm/dl Globulin 2.8 2.5-4.0 gm/dl Albumin/Globulin Ratio 1.0 0.9-2 Microbiology Results 04/25/16 Blood Culture, Received Pending 04/25/16 Blood Culture, Received Pending 04/25/16 MRSA DNA Surveillance Screen - Final, Complete Specimen Negative for MRSA by DNA Probe 04/25/16 Shiga Toxin Test, Received Pending 04/25/16 Stool Culture, Received Pending 04/25/16 C.difficile Toxin B Gene (PCR) - Final, Complete No C. difficile toxin B gene detected 04/25/16 Gram Stain, Received Pending 04/25/16 Sputum Culture, Received Pending Diagnostic Radiology CXR: Mild interstitial thickening with a few nodular opacities within lungs. The findings may reflect an infectious process. Radiographic follow up is recommended to ensure resolution. CTA Thorax: 1. No pulmonary emboli identified. 2. Multiple GG O's bilaterally very distant subpleural and location 3. Apical emphysema noted bilaterally Impression Assessment and Plan 6-year-old gentleman with cough, pharyngitis and dyspnea on exertion: #1 respiratory: AEP: Very low likelihood of AEP as the patient is afebrile and SPO2 on room air at 98%. Atypical: Or likely atypical infection such as mycoplasma and/or parainfluenza. Mycoplasma: Patient has thrombocytopenia diffuse GGO suggestive of parainfluenza at this time with increase Levaquin 750 mg/daily for 5 days Testing: Mycoplasma IgG IgM Parainfluenza: Would be abnormal time the season but multiple subclasses of parainfluenza no definitive treatment available Testing: Parainfluenza antibody and RNA Legionella: Signs and symptoms also consistent with Legionella at this time but lower on my differential as patient is not notably hypoxic Legionella urine antigen, will not to tach other subclasses of the Legionella organism ID: Suggest we obtain ID consult as multiple patients in the hospital as well as my clinic have been admitted for similar symptoms. Antibiotics: As atypical organism such as mycoplasma pneumonia/Legionella are higher in the differential is suggest we increase Levaquin to 750 mg/daily for at least a 5 day window. #2 Hemochromatosis: Patient is elevated hemoglobin levels with associated weston. Suggest we obtain a transferrin level.
[2016-04-26] MEDS: LEVOFLOXACIN / D5W 750 MG in PREMIXED IN D5W 150 ML IV SCH (10:14)
[2016-04-26] MEDS: POTASSIUM CHLORIDE 20 MEQ TABCR PO SCH ×2 (10:59→16:42)
--- NOTE | 2016-04-26 11:23 | Medical Consult ---
Consultation Date of Consultation: Apr 26, 2016. Attending Physician: Kallie Ceballos DO Reason for Consultation: Infectious sxs x 3 weeks, atypical lung densities on chest CT History of Present Illness Patient is a 46 yo male who presented to the ED with complaints of persistent illness that began multiple weeks ago. He states that he initially started to get a sore throat about 1 month ago. About 2 weeks ago, he started to have nausea, vomiting, diarrhea, and subjective fever at home. This continued for about 2 weeks. He has had no further N/V/D since admission. He also notes that he has had sweats, chills, on and off headache, and on and off SOB for about 1- 2 weeks. 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 They seemed to have improved since admission. The patient does smoke 1 pack of cigarettes per day, smokes marijuana and also drinks alcohol. He states that he has been more or less home- bound for 2 years due to a back injury. He has not worked since that time. He has 2 cats at home but otherwise has no real contact with animals including birds, cattle, horses, etc. He does not recall being around any sick contacts or having previous contact with anyone with TB. He has not traveled recently. He does have contact with his girlfriend's 9 yo son, but otherwise does not have contact with children. Her son has not been sick recently. The patient denies neck pain, myalgias, arthralgias, urinary symptoms, BRBPR, or cough. Since admission, the patient has had multiple tests done. His WBC count has been within normal limits. His platelets were noted to be mildly low at 104. His Total Bilirubin was 2.1 and his LFT's were mildly elevated on admission as well. CK was normal. Creatinine was 0.80. Blood cultures are pending. Sputum culture is pending. C. Diff toxin is negative. MRSA swab was negative. I spoke to Dr. Ceballos and Dr. Fuller regarding this patient as well. CT of the Chest showed multifocal ground glass opacities throughout the lungs with mild diffuse bronchial wall thickening which may represent infection or other inflammatory etiology along with moderate emphysema and fatty liver. Past Medical/Surgical History Medical Problems: (1) Anxiety (2) Anxiety State Nos (3) Cannabis Use, Unspecified, Uncomplicated (4) Chronic back pain (5) Coronary Atherosclerosis Of [place] Coronary Vessel (6) Edentulous (7) ETOH abuse (8) Hypertension Nos (9) Tobacco Use Disorder Surgical Problems: (1) History of dental surgery Family History FH: heart disease FATHER (AL in his 50s) FH: throat cancer GRANDFATHER Noncontributory Social History Smoking Status: Current Every Day Smoker Alcohol Use: heavy (6-12 beers/day) Housing Status: lives with family Allergies Coded Allergies: No Known Allergies (Unverified , 04/25/16) Home Medications Reported Home Medications Medications Dose Route/Sig Max Daily Dose Days Date Category Dose Instructions Atarax (Hydroxyzine Hcl) 50 Mg Tab 25 Mg PO QID PRN 04/25/16 Reported Ultram (Tramadol HCl) 50 Mg Tab 50 Mg PO Q8H PRN 04/25/16 Reported Voltaren (Diclofenac Sodium) 75 Mg Tabcr 75 Mg PO BID PRN 04/25/16 Reported WITH FOOD Proair Respiclick (Albuterol Sulfate) 108 Mcg/Act Aer 2 Puff INH QID PRN 04/25/16 Reported Lyrica (Pregabalin) 50 Mg Cap 50 Mg PO BID 04/25/16 Reported Gabapentin 300 Mg Cap 300 Mg PO QID PRN 11/25/15 Reported Current Inpatient Medications Current Inpatient Medications Medications (Trade) Dose Ordered Sig/Marta Route Start Time Stop Time Status Last Admin Dose Admin Ioversol (Optiray 320) 125 ml UD PRN IV 04/25/16 13:15 04/29/16 13:14 Ibuprofen (Advil Tab) 400 mg QID PRN PO 04/25/16 15:15 05/25/16 15:14 Ondansetron HCl (Zofran Inj) 4 mg Q6H PRN IV 04/25/16 15:15 05/25/16 15:14 04/26/16 06:37 4 MG Lorazepam (Ativan Inj) 1 mg ONE PRN IV 04/25/16 15:15 Piperacillin Sod/ Tazobactam Sod (Consult) 1 ea UD PRN N/A 04/25/16 15:30 05/25/16 15:29 Albuterol/ Ipratropium (Duoneb) 3 ml QIDR INH 04/25/16 16:00 05/25/16 15:59 04/26/16 07:39 3 ML Nicotine (Nicoderm Cq 14MG Patch) 1 patch QAM TD 04/25/16 15:30 05/25/16 15:29 04/26/16 07:53 1 PATCH Miscellaneous (Remove Nicoderm Patch) 1 ea HS N/A 04/25/16 21:00 05/25/16 20:59 Pregabalin 50 mg 50 mg BID PO 04/25/16 21:00 05/25/16 20:59 04/26/16 07:53 50 MG Piperacillin Sod/ Tazobactam Sod/ Dextrose (Zosyn Iv/D5 100ml) 115 ml @ 28.75 mls/ hr Q8@0400,1200,2000 IV 04/25/16 20:00 05/02/16 19:59 Future hold 04/26/16 05:21 28.75 MLS/HR Gabapentin (Neurontin Tab) 600 mg Q8H PO 04/26/16 14:00 04/27/16 06:01 Gabapentin (Neurontin Tab) 600 mg Q12H PO 04/27/16 18:00 04/28/16 06:01 Gabapentin (Neurontin Tab) 600 mg Q24H PO 04/28/16 06:00 04/28/16 06:01 Gabapentin 600 mg 600 mg Q24H ONCE PO 04/29/16 06:00 04/29/16 06:01 Levofloxacin/Prmx (Levaquin / D5W/ Premixed D5W) 150 ml @ 100 mls/hr Q24H IV 04/26/16 10:00 05/01/16 23:59 04/26/16 10:14 100 MLS/HR Potassium Chloride (Klor-Con Tab) 40 meq Q6H PO 04/26/16 11:00 04/26/16 17:01 04/26/16 10:59 40 MEQ Review of Systems Constitutional: + chills, + fever (subjective), + sweats Eyes: No worsening of vision ENT: + sore throat (x 1 month- worse over past week), + trouble swallowing (x 1 week), No hearing loss Respiratory: + dyspnea on exertion, + shortness of breath (on and off x 2 weeks ), No cough Cardiovascular: No chest pain Abdomen: + diarrhea (SHOESHINER for N/V/D- none since), + nausea, + vomiting, No pain Musculoskeletal: No joint pain, No muscle pain, No swelling Genitourinary - Male: No dysuria, No hematuria, No urinary frequency, No urinary urgency Neurologic: + weakness Endocrine: + fatigue Integumentary: No itch, No rash Physical Exam Date Time Temp Pulse Resp B/P Pulse Ox O2 Delivery O2 Flow Rate FiO2 04/26/16 08:45 Room Air 04/26/16 07:39 82 12 97 Room Air 04/26/16 00:00 Room Air 04/25/16 23:29 36.8 94 18 130/90 95 Room Air 04/25/16 21:58 37.1 93 18 151/82 95 Room Air 04/25/16 19:54 95 14 97 Room Air 04/25/16 19:50 36.8 98 18 123/73 95 Room Air 04/25/16 17:39 36.8 98 18 123/73 98 Room Air 04/25/16 17:18 93 14 126/72 98 04/25/16 16:41 93 14 126/72 98 Room Air 04/25/16 14:24 122/89 04/25/16 13:01 148/88 04/25/16 11:26 37.0 118 24 127/84 97 Room Air General Appearance: WD/WN, + pertinent finding (diaphoresis) Eyes: normal inspection, sclerae normal ENT: hearing grossly normal Neck: supple, trachea midline Respiratory/Chest: chest non-tender, normal breath sounds, no respiratory distress, no accessory muscle use, + rhonchi (mild throughout- end expiratory) Cardiovascular: regular rate, rhythm, no murmur Abdomen/GI: normal bowel sounds Back: normal inspection Extremities/Musculoskelatal: normal inspection Neurologic/Psych: alert, normal mood/affect Skin: normal color, warm/dry, no rash Laboratory Results CT ANGIOGRAPHY OF THE CHEST, PULMONARY EMBOLUS PROTOCOL CLINICAL HISTORY: Shortness of breath, cough and vomiting. COMPARISON STUDY: Chest radiograph performed earlier today. TECHNIQUE: Following IV administration of 95 mL of Optiray-320, helical axial images of the chest were obtained utilizing the pulmonary embolus protocol. Maximal intensity projections and sagittal and coronal reformats were viewed on an independent 3D workstation. IV contrast was administered without complication. CT DOSE: 290.31 mGy.cm FINDINGS: No pulmonary emboli are identified. The size of the heart is normal. There is no pericardial effusion. No enlarged thoracic lymph nodes are present. The central airways are patent. There is moderate emphysema. Diffuse bronchial wall thickening is noted. There are multifocal groundglass opacities within the lungs that are predominantly peripheral in location. No pneumothorax or pleural effusion is present. There is no lobar consolidation. No cavitation is present. Bony thorax is unremarkable. Fatty infiltration of the liver is noted. Note is made of a 1.8 cm hypodense segment 7 hepatic lesion. IMPRESSION: 1. No pulmonary emboli identified. 2. Multifocal groundglass opacities throughout the lungs with mild diffuse bronchial wall thickening. The findings may represent an infectious process although other etiologies such as eosinophilic pneumonia could have this imaging appearance. A follow-up chest CT in 3 months to ensure resolution is recommended. 3. Moderate emphysema. 4. Fatty liver with an indeterminate 1.8 cm right hepatic lobe lesion. This lesion can be assessed on subsequent CT to ensure stability. Item Value Date Time Gram Stain - Final Resulted 04/25/162044 Sputum Expectorated Sputum Shiga Toxin Test Received 04/25/16 204 Stool Pending C.difficile Toxin B Gene (PCR) - Final Complete 04/25/16 2045 Stool No C. difficile toxin B gene detected MRSA DNA Surveillance Screen - Final Complete 04/25/16 1742 Nasal Specimen Negative for MRSA by DNA Probe Blood Culture Received 04/25/16 1445 Blood Pending Blood Culture Received 04/25/16 1436 Blood Pending Last 24 Hours Test 04/25/16 11:39 04/25/16 11:55 04/25/16 12:00 04/25/16 12:01 Creatine Kinase MB Ratio 1.0 White Blood Count 8.23 K/uL Red Blood Count 5.53 M/uL Hemoglobin 18.3 g/dL Hematocrit 48.5 % Mean Corpuscular Volume 87.7 fL Mean Corpuscular Hemoglobin 33.1 pg Mean Corpuscular Hemoglobin Concent 37.7 g/dl Platelet Count 121 K/uL Mean Platelet Volume 11.5 fL Neutrophils (%) (Auto) 75.8 % Lymphocytes (%) (Auto) 6.7 % Monocytes (%) (Auto) 16.9 % Eosinophils (%) (Auto) 0.1 % Basophils (%) (Auto) 0.1 % Neutrophils # (Auto) 6.24 K/uL Lymphocytes # (Auto) 0.55 K/uL Monocytes # (Auto) 1.39 K/uL Eosinophils # (Auto) 0.01 K/uL Basophils # (Auto) 0.01 K/uL RDW Standard Deviation 39.7 fL RDW Coefficient of Variation 12.5 % Immature Granulocyte % (Auto) 0.4 % Immature Granulocyte # (Auto) 0.03 K/uL Sodium Level 128 mmol/L Potassium Level 3.3 mmol/L Chloride Level 91 mmol/L Carbon Dioxide Level 27 mmol/L Anion Gap 10.0 mmol/L 18.0 mmol/L Blood Urea Nitrogen 3 mg/dl Creatinine 0.80 mg/dl Est Creatinine Clear Calc Drug Dose 107.2 ml/min Estimated GFR () 125.9 Estimated GFR (Non- 108.6 BUN/Creatinine Ratio 3.5 Random Glucose 110 mg/dl Calcium Level 9.2 mg/dl Magnesium Level 2.3 mg/dl Total Bilirubin 2.1 mg/dl Direct Bilirubin 0.5 mg/dl Aspartate Amino Transf (AST/SGOT) 54 U/L Alanine Aminotransferase (ALT/SGPT) 97 U/L Alkaline Phosphatase 89 U/L Total Creatine Kinase 89 U/L Creatine Kinase MB 0.9 ng/ml Troponin I < 0.015 ng/ml Total Protein 7.8 gm/dl Albumin 3.9 gm/dl Lipase 88 U/L Bedside Hemoglobin 17.7 g/dl Bedside Hematocrit 52 % Bedside Sodium 129 mEq/L Bedside Potassium 3.5 mEq/L Bedside Chloride 90 mEq/L Bedside Total CO2 26 mEq/l Bedside Blood Urea Nitrogen < 3 mg/dl Bedside Creatinine 0.6 mg/dl Bedside Glucose (other) 115 mg/dl Bedside Ionized Calcium (Judd) 1.06 mmol/l Bedside D-Dimer > 450 ng/mlFEU Test 04/25/16 14:10 04/25/16 14:36 04/25/16 16:00 04/25/16 19:00 Influenza Type A (RT-PCR) Neg for Influ A Influenza Type B (RT-PCR) Neg for Influ B Osmolality 271 mOsm/kg Sodium Level 131 mmol/L Potassium Level 3.7 mmol/L Chloride Level 94 mmol/L Carbon Dioxide Level 28 mmol/L Anion Gap 9.0 mmol/L Blood Urea Nitrogen 5 mg/dl Creatinine 0.78 mg/dl Est Creatinine Clear Calc Drug Dose 109.9 ml/min Estimated GFR () 127.2 Estimated GFR (Non- 109.8 BUN/Creatinine Ratio 5.9 Random Glucose 104 mg/dl Calcium Level 8.4 mg/dl Test 04/25/16 20:45 04/26/16 05:59 Urine Color DK YELLOW Urine Appearance CLEAR Urine pH 6.5 Urine Specific [place] > 1.045 Urine Protein 1+ Urine Glucose (UA) NEG Urine Ketones TRACE Urine Occult Blood TRACE Urine Nitrite NEG Urine Bilirubin NEG Urine Urobilinogen NEG Urine Leukocyte Esterase NEG Urine WBC (Auto) 1-5 /hpf Urine RBC (Auto) 0-4 /hpf Urine Hyaline Casts (Auto) 5-10 /lpf Urine Epithelial Cells (Auto) >30 /lpf Urine Bacteria (Auto) 1+ Urine Renal Epithelial Cells /lpf Urine Osmolality 551 mOms/kg White Blood Count 6.93 K/uL Red Blood Count 4.22 M/uL Hemoglobin 13.6 g/dL Hematocrit 37.6 % Mean Corpuscular Volume 89.1 fL Mean Corpuscular Hemoglobin 32.2 pg Mean Corpuscular Hemoglobin Concent 36.2 g/dl RDW Standard Deviation 40.2 fL RDW Coefficient of Variation 12.5 % Platelet Count 104 K/uL Mean Platelet Volume 11.7 fL Sodium Level 131 mmol/L Potassium Level 3.2 mmol/L Chloride Level 96 mmol/L Carbon Dioxide Level 24 mmol/L Anion Gap 11.0 mmol/L Blood Urea Nitrogen 4 mg/dl Creatinine 0.44 mg/dl Est Creatinine Clear Calc Drug Dose 193.9 ml/min Estimated GFR () > 150.0 Estimated GFR (Non- 138.9 BUN/Creatinine Ratio 8.6 Random Glucose 82 mg/dl Calcium Level 7.8 mg/dl Total Bilirubin 1.5 mg/dl Aspartate Amino Transf (AST/SGOT) 31 U/L Alanine Aminotransferase (ALT/SGPT) 56 U/L Alkaline Phosphatase 53 U/L Total Protein 5.6 gm/dl Albumin 2.8 gm/dl Globulin 2.8 gm/dl Albumin/Globulin Ratio 1.0 Assessment & Plan Patient with multiple weeks of nonspecific symptoms including N/V/D, sore throat , SOB, and sweats/chills. The patient states that his N/V/D has tapered off, and his other symptoms have improved slightly since admission. It seems most likely that this patient had symptoms consistent with a viral syndrome such as norovirus or enterovirus, but now with SOB and atypical findings on Chest CT, consider potential for CAP. Noted that Quantiferon for TB is pending, but feel there is a low likelihood of this patient having TB. His MRSA nasal swab was negative and flu was negative. He is currently on IV Zosyn and Levaquin. Likely can continue Levaquin alone with negative MRSA nasal swab, low risk of aspiration, and no other apparent source of infection. This seems appropriate pending improvement and further workup. It seems likely that this patient may also be improving from IV hydration alone since he has had a poor appetite and has not been drinking much over the past 2 weeks. Will also order tests for Mycoplasma and Legionella though these also seem unlikely. Procalcitonin, ESR, and CRP will also be checked. We will continue to follow. Plan: 1. D/C Zosyn, continue Levaquin 2. Check Mycoplasma, Legionella, Procalcitonin, ESR, and CRP 3. Follow other labs- await improvement PROVIDER ADDENDUM: patient examined and reviewed with Ms. Segura. Agree with above assessment.
[2016-04-26 11:31] VITALS: PULSE 94; O2SAT 97
[2016-04-26] MEDS ORDERED: ALBUT/IPRATROP 3MG/0.5MG NEB 3 ML VIAL INH PRN (12:22)
[2016-04-26] MEDS ORDERED: LORAZEPAM 1 MG TAB PO STA (12:28)
--- NOTE | 2016-04-26 12:35 | Progress Note ---
Medicine Progress Note Date & Time of Visit: Apr 26, 2016 at 12:12. Subjective Reports feeling better today Denies nausea, vomiting or diarrhea Started tolerating food yesterday and is keeping it down Persistently complains of sore throat and trouble breathing, however, he notes that breathing is much improved. Not on oxygen, no trouble breathing with exertion, states he has trouble breathing only at night because of congestion, "but even that is improved" Heavy drinker with last drink 3 days ago-appears tremulous and is reporting insomnia and agitation. Reports having ativan in the past to calm his nerves Gave verbal permission for HIV test Objective Last 8 Hrs Date Time Temp Pulse Resp B/P Pulse Ox O2 Delivery O2 Flow Rate FiO2 04/26/16 11:31 94 12 97 Room Air 04/26/16 08:45 Room Air 04/26/16 07:39 82 12 97 Room Air Physical Exam: GEN: WNWD, in no acute distress, alert and appropriate, appears disheveled, no conversational dyspnea HEENT: NC/AT, PERRL, normal sclerae CARDIO: reg rate, S1/2 heard without m/g/r LUNGS: CTA bilaterally, no crackles, rales or wheezes, good diaphragmatic excursion ABD: soft, non-tender, non-distended, no rebound or guarding EXTREMITY: no LE swelling or edema, extremities are warm and well-perfused NEURO: CN 2-12 grossly intact, sensation intact throughout, no gross focal deficits MUSC: 5/5 strength throughout, no gross focal deficits, ambulatory, however, gait not assessed. Moves around bed easily, normal muscle tone. SKIN: warm and dry, tattooed Laboratory Results: Last 24 Hours Test 04/25/16 14:10 04/25/16 14:36 04/25/16 16:00 04/25/16 19:00 Influenza Type A (RT-PCR) Neg for Influ A Influenza Type B (RT-PCR) Neg for Influ B Osmolality 271 mOsm/kg Sodium Level 131 mmol/L Potassium Level 3.7 mmol/L Chloride Level 94 mmol/L Carbon Dioxide Level 28 mmol/L Anion Gap 9.0 mmol/L Blood Urea Nitrogen 5 mg/dl Creatinine 0.78 mg/dl Est Creatinine Clear Calc Drug Dose 109.9 ml/min Estimated GFR () 127.2 Estimated GFR (Non- 109.8 BUN/Creatinine Ratio 5.9 Random Glucose 104 mg/dl Calcium Level 8.4 mg/dl Test 04/25/16 20:45 04/26/16 05:59 04/26/16 11:48 04/26/16 11:50 Urine Color DK YELLOW Urine Appearance CLEAR Urine pH 6.5 Urine Specific [place] > 1.045 Urine Protein 1+ Urine Glucose (UA) NEG Urine Ketones TRACE Urine Occult Blood TRACE Urine Nitrite NEG Urine Bilirubin NEG Urine Urobilinogen NEG Urine Leukocyte Esterase NEG Urine WBC (Auto) 1-5 /hpf Urine RBC (Auto) 0-4 /hpf Urine Hyaline Casts (Auto) 5-10 /lpf Urine Epithelial Cells (Auto) >30 /lpf Urine Bacteria (Auto) 1+ Urine Renal Epithelial Cells /lpf Urine Osmolality 551 mOms/kg White Blood Count 6.93 K/uL Red Blood Count 4.22 M/uL Hemoglobin 13.6 g/dL Hematocrit 37.6 % Mean Corpuscular Volume 89.1 fL Mean Corpuscular Hemoglobin 32.2 pg Mean Corpuscular Hemoglobin Concent 36.2 g/dl RDW Standard Deviation 40.2 fL RDW Coefficient of Variation 12.5 % Platelet Count 104 K/uL Mean Platelet Volume 11.7 fL Sodium Level 131 mmol/L Potassium Level 3.2 mmol/L Chloride Level 96 mmol/L Carbon Dioxide Level 24 mmol/L Anion Gap 11.0 mmol/L Blood Urea Nitrogen 4 mg/dl Creatinine 0.44 mg/dl Est Creatinine Clear Calc Drug Dose 193.9 ml/min Estimated GFR () > 150.0 Estimated GFR (Non- 138.9 BUN/Creatinine Ratio 8.6 Random Glucose 82 mg/dl Calcium Level 7.8 mg/dl Total Bilirubin 1.5 mg/dl Aspartate Amino Transf (AST/SGOT) 31 U/L Alanine Aminotransferase (ALT/SGPT) 56 U/L Alkaline Phosphatase 53 U/L Total Protein 5.6 gm/dl Albumin 2.8 gm/dl Globulin 2.8 gm/dl Albumin/Globulin Ratio 1.0 Date/Time Source Procedure Growth Status 04/25/16 14:45 Blood Blood Culture Pending Received 04/25/16 14:36 Blood Blood Culture Pending Received 04/25/16 17:42 Nasal MRSA DNA Surveillance Screen - Final Specimen Negative for MRSA by DNA Probe Complete 1/9/17 20:45 Stool Shiga Toxin Test Pending Received 04/25/16 20:45 Stool Stool Culture Pending Received 04/25/16 20:45 Stool C.difficile Toxin B Gene (PCR) - Final No C. difficile toxin B gene detected Complete 04/25/16 20:45 Sputum Expectorated Sputum Gram Stain - Final Resulted 04/25/16 20:45 Sputum Expectorated Sputum Sputum Culture Pending Resulted Assessment & Plan 46 yoM heavy drinker/smoker presented yesterday with 2 weeks of nausea, vomiting , diarrhea, sinus congestion, cough and shortness of breath. He failed outpatient treatment of URI symptoms with Augmentin and a Zpak given on two separate occasions in Feb 2016. CT revealed atypical findings-pulm consulted; also with 1.8cm hepatic lesion. PNEUMONIA - CT showing multifocal pneumonia, possible eosinophilic pneumonia - consider aspiration due to patient's drinking history - saturating well on room air - s/p Levaquin, Zosyn, and Vanco in ED - will continue with Levaquin and Zosyn for now; ID consulted for assistance, appreciate abx recs - influenza swab negative - nebs- will change to PRN as breathing improved and no wheezing on exam. - blood and sputum cultures-pending - will need follow up CT chest in 3 months HYPONATREMIA-hypovolemic, hypotonic - likely chronic due to ETOH use and recent GI illness -IVF overnight with appropriate rise in Na. -as he is tolerating PO, will stop IVF after this bag is complete and cont drinking to thirst/eating N/V/D-resolved per patient - ? viral gastroenteritis -stool studies-pending - continue with supportive care with IVF, PRN antiemetics ETOH ABUSE - reports drinking 6-12 beers/day, last drink yesterday afternoon - start ETOH withdrawal protocol with gabapentin -holding Lyrica while on Gabapentin, however, patient is tremulous and is reporting insomnia overnight last night -will start Ativan PRN and schedule it at night with first dose now. ELEVATED D. DIMER -CT negative for PE -BLLE dopplers also negative LIVER LESION - 1.8cm right hepatic lesion noted on CT chest - will need follow up CT liver tomorrow (contrasted study yesterday) DVT PROPHYLAXIS - SCDs/ambulation DISPO - cont to monitor overnight, labs pending per Pulm, HIV ordered. Pt continues to improve but not ready for discharge. Kallie Ducor, DO [facility] Hospitalist Consultants: pulm, SADIE Current Inpatient Medications: Current Inpatient Medications Medications (Trade) Dose Ordered Sig/Marta Route Start Time Stop Time Status Last Admin Dose Admin Ioversol (Optiray 320) 125 ml UD PRN IV 04/25/16 13:15 04/29/16 13:14 Ibuprofen (Advil Tab) 400 mg QID PRN PO 04/25/16 15:15 05/25/16 15:14 Ondansetron HCl (Zofran Inj) 4 mg Q6H PRN IV 04/25/16 15:15 05/25/16 15:14 04/26/16 06:37 4 MG Lorazepam (Ativan Inj) 1 mg ONE PRN IV 04/25/16 15:15 Albuterol/ Ipratropium (Duoneb) 3 ml QIDR INH 04/25/16 16:00 05/25/16 15:59 04/26/16 11:30 3 ML Nicotine (Nicoderm Cq 14MG Patch) 1 patch QAM TD 04/25/16 15:30 05/25/16 15:29 04/26/16 07:53 1 PATCH Miscellaneous (Remove Nicoderm Patch) 1 ea HS N/A 04/25/16 21:00 05/25/16 20:59 Pregabalin (Lyrica Cap) 50 mg BID PO 04/25/16 21:00 05/25/16 20:59 04/26/16 07:53 50 MG Gabapentin (Neurontin Tab) 600 mg Q8H PO 04/26/16 14:00 04/27/16 06:01 Gabapentin (Neurontin Tab) 600 mg Q12H PO 04/27/16 18:00 04/28/16 06:01 Gabapentin (Neurontin Tab) 600 mg Q24H PO 04/28/16 06:00 04/28/16 06:01 Gabapentin 600 mg 600 mg Q24H ONCE PO 04/29/16 06:00 04/29/16 06:01 Levofloxacin/Prmx (Levaquin / D5W/ Premixed D5W) 150 ml @ 100 mls/hr Q24H IV 04/26/16 10:00 05/01/16 23:59 04/26/16 10:14 100 MLS/HR Potassium Chloride (Klor-Con Tab) 40 meq Q6H PO 04/26/16 11:00 04/26/16 17:01 04/26/16 10:59 40 MEQ
[2016-04-26] MEDS: GABAPENTIN 600MG Q8H DOSE PO SCH ×2 (13:28→20:03)
[2016-04-26] MEDS ORDERED: LEVOFLOXACIN / D5W 500 MG in PREMIXED IN D5W 100 ML IV SCH (14:00)
[2016-04-26 15:41] VITALS: BP 123/70; PULSE 93; TEMP 37.1; O2SAT 99
[2016-04-26] MEDS ORDERED: LORAZEPAM 1 MG TAB PO SCH (21:00)
[2016-04-26 22:52] VITALS: BP 133/77; PULSE 56; TEMP 36.7; O2SAT 97
[2016-04-27] MEDS: LORAZEPAM 1 MG TAB PO PRN ×2 (01:58→10:18)
[2016-04-27] MEDS: GABAPENTIN 600MG Q8H DOSE PO SCH (06:19)
[2016-04-27 06:49] LABS: HEMATOCRIT 40.5 % (42-52); MEAN CORPUSCULAR HEMOGLOBIN 32.6 pg (25-34); MEAN CORPUSCULAR HGB CONC 35.8 g/dl (32-36); MEAN PLATELET VOLUME 11.6 fL (7.4-10.4); PLATELET COUNT 120 K/uL (130-400); RED BLOOD COUNT 4.45 M/uL (4.7-6.1); WHITE BLOOD COUNT 6.29 K/uL (4.8-10.8)
[2016-04-27 07:13] VITALS: BP 116/70; PULSE 88; TEMP 36.6; O2SAT 96
[2016-04-27 07:27] LABS: CALCIUM 8.6 mg/dl (8.5-10.1); CREATININE 0.67 mg/dl (0.60-1.40); FERRITIN 328.4 ng/ml (8.0-388.0); MAGNESIUM 2.3 mg/dl (1.8-2.4); PHOSPHORUS 3.9 mg/dl (2.5-4.9); POTASSIUM 3.9 mmol/L (3.5-5.1)
[2016-04-27] MEDS: NICOTINE 14 MG/24 HR TDSY TD SCH (09:00)
[2016-04-27 09:05] LABS: QUANTIF TB AG-NIL <0.00 IU/ML; QUANTIFERON NIL 0.06 IU/ML
--- NOTE | 2016-04-27 09:47 | Pulmonology Progress Note ---
Pulmonary Progress Note Date of Service Apr 27, 2016. Attending Alina Subjective Feeling markedly improved. Continued intermittent cough - no hemoptysis. No further GI symptoms. Objective PMHx includes: Daily ETOH (12-beers/day), current tobacco: 1-ppd, marijuana use , CAD, HTN, and chronic back pain. Patient admitted through [facility] ER 04/25/16 with 3-week h/o emesis, diarrhea and pharyngitis then transitioned to cough, weight loss, headache, and HEAD. CXR notable for mild interstitial thickening and an 8mm nodular density of the RLL. CTA: negative for PE - multifocal GG opacities bilaterally with mild diffuse bronchial wall thickening, moderate emphysema, and fatty liver (1.8cm right lobe lesion). Today: - 96-97% RA, afebrile, HD stable - Influenza A & B: negative - HIV: Neg, TB: neg - Urine Legionella, Parainfluenza, Norovirus, mycoplasma: Pending Physical Exam: Constitutional: Well developed well nourished thin male. Sleeping soundly in hospital bed. No acute distress Head: + facial symmetry Eyes: EOMi, PERRLA, no injection Mouth: Moist mucous membranes. NO erythema or exudate. No visible lesions Respiratory: non-labored respirations. Bilateral bronchial breath sounds, + wheeze and rales tending to become more prominent at apices. CV: RRR, no MRG. Warm and perfused peripherally Abdomen: Soft, active bowel sounds MSK/Extremities: Moving equally throughout. Neurologic: A&O, no sign of tremor. Answering questions appropriately. Assessment & Plan 46-yo male hospital day #3 with flu-like symptoms and infiltrative changes on imaging. Clinically he is improving. Viral studies are pending and will repeat influenza PCR. Will continue to follow-along.Likely repeat CXR 04/29 . Watch for s/s ETOH withdrawal. Data Medications: Current Inpatient Medications Medications (Trade) Dose Ordered Sig/Marta Route Start Time Stop Time Status Last Admin Dose Admin Ioversol (Optiray 320) 125 ml UD PRN IV 04/25/16 13:15 04/29/16 13:14 Ibuprofen (Advil Tab) 400 mg QID PRN PO 04/25/16 15:15 05/25/16 15:14 04/26/16 13:29 400 MG Ondansetron HCl (Zofran Inj) 4 mg Q6H PRN IV 04/25/16 15:15 05/25/16 15:14 04/26/16 06:37 4 MG Lorazepam (Ativan Inj) 1 mg ONE PRN IV 04/25/16 15:15 Nicotine (Nicoderm Cq 14MG Patch) 1 patch QAM TD 04/25/16 15:30 05/25/16 15:29 04/26/16 07:53 1 PATCH Miscellaneous (Remove Nicoderm Patch) 1 ea HS N/A 04/25/16 21:00 05/25/16 20:59 04/26/16 20:05 1 EA Pregabalin (Lyrica Cap) 50 mg BID PO 04/25/16 21:00 05/25/16 20:59 Future Hold 04/26/16 07:53 50 MG Gabapentin (Neurontin Tab) 600 mg Q12H PO 04/27/16 18:00 04/28/16 06:01 Gabapentin (Neurontin Tab) 600 mg Q24H PO 04/28/16 06:00 04/28/16 06:01 Gabapentin 600 mg 600 mg Q24H ONCE PO 04/29/16 06:00 04/29/16 06:01 Levofloxacin/Prmx (Levaquin / D5W/ Premixed D5W) 150 ml @ 100 mls/hr Q24H IV 04/26/16 10:00 05/01/16 23:59 04/26/16 10:14 100 MLS/HR Albuterol/ Ipratropium (Duoneb) 3 ml Q6H PRN INH 04/26/16 12:22 05/26/16 12:21 Lorazepam (Ativan Tab) 1 mg Q8H PRN PO 04/26/16 20:00 05/26/16 19:59 04/27/16 01:58 1 MG Lorazepam (Ativan Tab) 1 mg HS PO 04/26/16 21:00 05/26/16 20:59 04/26/16 20:03 1 MG I & O: 24-Hour Column 04/27/16 08:00 Intake Total 1450 ml Balance 1450 ml Vital Signs: Date Time Temp Pulse Resp B/P Pulse Ox O2 Delivery O2 Flow Rate FiO2 04/27/16 07:53 Room Air 04/27/16 07:13 36.6 88 20 116/70 96 Room Air 04/27/16 00:00 Room Air 04/26/16 22:52 36.7 56 19 133/77 97 Room Air 04/26/16 20:00 Room Air 04/26/16 16:45 Room Air 04/26/16 15:41 37.1 93 18 123/70 99 Room Air 04/26/16 11:31 94 12 97 Room Air Laboratory Results: Last 24 Hours Test 04/26/16 11:50 04/26/16 13:40 04/26/16 15:00 04/27/16 06:10 Erythrocyte Sedimentation Rate 10 mm/hr C-Reactive Protein 3.80 mg/dl Procalcitonin 0.26 ng/mL HIV (1&2) Ab and P24 Ag, 4th Gener NEG White Blood Count 6.29 K/uL Red Blood Count 4.45 M/uL Hemoglobin 14.5 g/dL Hematocrit 40.5 % Mean Corpuscular Volume 91.0 fL Mean Corpuscular Hemoglobin 32.6 pg Mean Corpuscular Hemoglobin Concent 35.8 g/dl RDW Standard Deviation 42.6 fL RDW Coefficient of Variation 12.7 % Platelet Count 120 K/uL Mean Platelet Volume 11.6 fL Sodium Level 139 mmol/L Potassium Level 3.9 mmol/L Chloride Level 103 mmol/L Carbon Dioxide Level 27 mmol/L Anion Gap 9.0 mmol/L Blood Urea Nitrogen 3 mg/dl Creatinine 0.67 mg/dl Est Creatinine Clear Calc Drug Dose 127.4 ml/min Estimated GFR () 135.4 Estimated GFR (Non- 116.9 BUN/Creatinine Ratio 4.0 Random Glucose 78 mg/dl Calcium Level 8.6 mg/dl Phosphorus Level 3.9 mg/dl Magnesium Level 2.3 mg/dl Ferritin 328.4 ng/ml Albumin 3.0 gm/dl
[2016-04-27] MEDS: LEVOFLOXACIN / D5W 750 MG in PREMIXED IN D5W 150 ML IV SCH (10:09)
[2016-04-27] MEDS ORDERED: OPTIRAY 320 IV PRN (13:15)
--- NOTE | 2016-04-27 13:25 | DIAGNOSTIC IMAGING REPORT ---
CT SCAN OF THE ABDOMEN COMBO LIVER PROTOCOL CLINICAL HISTORY: Follow-up hepatic lesion. COMPARISON STUDY: Chest CT dated 04/25/2016. TECHNIQUE: Before and following the IV administration of 119 cc of Optiray 320, CT scan of the abdomen is performed from the lung bases to the pelvic inlet utilizing the liver protocol. Images are reviewed in the axial, sagittal, and coronal planes. IV contrast was administered without complication. Automated dose control exposure was utilized. CT DOSE: 765.06 mGycm FINDINGS: Lung bases: The heart is mildly enlarged and without pericardial effusion. There is patchy groundglass consolidation present at both lung bases. This is unchanged from 04/25/2016. No pleural effusion is identified. A small hiatal hernia is present. Liver: The contrast-enhanced liver is enlarged, measuring 19.5 cm in length. The liver demonstrates diffusely diminished attenuation consistent with severe hepatic steatosis. Fatty sparing is noted adjacent to gallbladder fossa. There is no intrahepatic biliary ductal dilatation. There is a 1.9 cm lesion in hepatic segment VII identified on image #77 of the arterial phase series. This demonstrates foci of peripheral and discontinuous nodular enhancement with gradual fill-in. The imaging kinetics are consistent with a benign hemangioma. No additional hepatic lesions are seen. Hepatic and portal vasculature: Hepatic arterial anatomy is conventional. The hepatic veins, portal veins, superior mesenteric vein, and splenic vein are patent. Gallbladder: The gallbladder is contracted. The gallbladder wall appears thickened and hyperemic. Spleen: Normal in size and attenuation. There are small catheter site splenic granulomas. Pancreas: Unremarkable. Adrenal glands: Unremarkable. Kidneys: No renal calculi are identified on the unenhanced series. The contrast enhanced kidneys are normal in size and without hydronephrosis. A small extrarenal pelvis is noted on the right. The kidneys enhance symmetrically. Abdominal vasculature: The abdominal aorta is normal in course and caliber noting moderate to advanced atherosclerotic calcification. This is significantly advanced for age. Bowel: Visualized portions of the small bowel and colon are normal in course and caliber. Peritoneum: There is no intraperitoneal free air or abdominal ascites. Lymphadenopathy: None. Skeletal structures: Mild degenerative change is noted throughout the lumbar spine. A posterior disc bulge is noted at L3-L4. No lytic or blastic lesions are seen. IMPRESSION: 1. Hepatomegaly and severe hepatic steatosis. 2. There is a 1.9 cm lesion in hepatic segment VII, corresponding to the lesion seen on the 04/25/[address] The enhancement kinetics are consistent with a benign hemangioma. 3. No additional hepatic lesions are identified. 4. Mild cardiomegaly. 5. There is significantly age advanced atherosclerotic calcification of the abdominal aorta. 6. Foci of patchy groundglass consolidation are present at both lung bases. This is similar to the 04/25/[address] and may represent infectious or inflammatory pneumonitis. Clinical correlation will be required. Electronically signed by: Darian Caputo M.D. 04/27/2016 1:23 PM Dictated Date/Time: 04/27/2016 1:12 PM
[2016-04-27 15:04] LABS: INFLUENZA A PCR Neg for Influ A (NEG); INFLUENZA B PCR Neg for Influ B (NEG)
[2016-04-27] MEDS ORDERED: LVQ750 PO (15:43)
[2016-04-27] MEDS ORDERED: ATV1 PO (15:43)
[2016-04-27] MEDS ORDERED: NICO21DI35 TD (15:43)
[2016-04-27] MEDS ORDERED: PRED20TA PO (15:47)
[2016-04-27 15:58] VITALS: BP 125/79; PULSE 87; O2SAT 99
--- NOTE | 2016-04-27 15:58 | Discharge Instructions ---
Discharge Instructions Admission Reason for Admission: Hyponatremia, Pneumonia Discharge Discharge Diagnosis / Problem: Community-acquired pneumonia Discharge Goals Goal(s): Prevent Disease Progression Activity Recommendations Activity Limitations: resume your previous activity . Instructions / Follow-Up Instructions / Follow-Up Please take all medications as instructed. I strongly recommend that you stop smoking. Please use the Nicotine patch provided to assist with this. I strongly recommend that you completely avoid alcohol. Ativan has been provided to use as needed for anxiety, which can be refilled/adjusted by Dr. Reyes. You need a follow-up chest x-ray in 4 weeks to ensure resolution of the pneumonia. You will also need a repeat CT scan of the chest in 3 months. This can be ordered by your primary care physician. You have a follow-up appointment scheduled with Dr. Reyes on 05/03 @ 1:10pm. Please bring all paperwork from this hospitalization. There are some labs still pending today that will need to be followed up at this appointment. It was a pleasure taking care of you! Call if you have any questions or problems. You can reach a [facility] hospitalist on duty at [facility] 24 hours a day by calling [phone]. Take care of yourself. Kallie Ceballos, [facility] Hospitalist Current Hospital Diet Patient's current hospital diet: Regular Diet Discharge Diet Recommended Diet: Regular Diet Procedures Procedures Performed: None. Pending Studies Studies pending at discharge: yes List of pending studies: Urine Legionella Antigen Mycoplasma panel Parainfluenza panel Norovirus RNA Final blood culture results which are initially negative x 2 bottles. Medical Emergencies . Who to Call and When: Medical Emergencies: If at any time you feel your situation is an emergency, please call 911 immediately. . Non-Emergent Contact Non-Emergency issues call your: Primary Care Provider . . "Provider Documentation" section prepared by Kallie Ceballos. VTE Core Measure Inpt VTE Proph given/why not?: SCD's
[2016-04-27 16:11] VITALS: BP 125/79; PULSE 87; TEMP 36.6; O2SAT 99
--- NOTE | 2016-04-27 16:30 | Infectious Disease Progress Nt ---
Progress Note Date of Service Apr 27, 2016. Subjective Pt evaluation today including: conversation w/ patient, physical exam, chart review, lab review, review of studies, conversation w/ outreach consultant (Dr. Ceballos), review of inpatient medication list Patient is feeling much improved today. He has no continued SOB. His sore throat is improved as well. He states that he slept well last night and his appetite is better today. No continued diarrhea or nausea. He is tolerating his abx well. Sputum culture has shown normal koby growing. WBC count 6.29. Abdominal CT scan showed likely benign liver cyst and continued lower lung findings as before. All Other Systems: Reviewed and Negative Medications Current Inpatient Medications Medications (Trade) Dose Ordered Sig/Marta Route Start Time Stop Time Status Last Admin Dose Admin Ioversol (Optiray 320) 125 ml UD PRN IV 04/25/16 13:15 04/29/16 13:14 Ibuprofen (Advil Tab) 400 mg QID PRN PO 04/25/16 15:15 05/25/16 15:14 04/26/16 13:29 400 MG Ondansetron HCl (Zofran Inj) 4 mg Q6H PRN IV 04/25/16 15:15 05/25/16 15:14 04/26/16 06:37 4 MG Lorazepam (Ativan Inj) 1 mg ONE PRN IV 04/25/16 15:15 Nicotine (Nicoderm Cq 14MG Patch) 1 patch QAM TD 04/25/16 15:30 05/25/16 15:29 04/26/16 07:53 1 PATCH Miscellaneous (Remove Nicoderm Patch) 1 ea HS N/A 04/25/16 21:00 05/25/16 20:59 04/26/16 20:05 1 EA Pregabalin (Lyrica Cap) 50 mg BID PO 04/25/16 21:00 05/25/16 20:59 Future Hold 04/26/16 07:53 50 MG Gabapentin (Neurontin Tab) 600 mg Q12H PO 04/27/16 18:00 04/28/16 06:01 Gabapentin (Neurontin Tab) 600 mg Q24H PO 04/28/16 06:00 04/28/16 06:01 Gabapentin (Neurontin Tab) 600 mg Q24H ONCE PO 04/29/16 06:00 04/29/16 06:01 Albuterol/ Ipratropium (Duoneb) 3 ml Q6H PRN INH 04/26/16 12:22 05/26/16 12:21 Lorazepam (Ativan Tab) 1 mg Q8H PRN PO 04/26/16 20:00 05/26/16 19:59 04/27/16 10:18 1 MG Lorazepam (Ativan Tab) 1 mg HS PO 04/26/16 21:00 05/26/16 20:59 04/26/16 20:03 1 MG Ioversol (Optiray 320) 125 ml UD PRN IV 04/27/16 13:15 05/01/16 13:14 Levofloxacin (Levaquin Tab) 750 mg DAILY@11 PO 04/28/16 11:00 05/01/16 23:59 Objective Vital Signs Date Time Temp Pulse Resp B/P Pulse Ox O2 Delivery O2 Flow Rate FiO2 04/27/16 16:11 36.6 87 18 99 Room Air 04/27/16 15:58 87 18 125/79 99 Room Air 04/27/16 15:33 Room Air 04/27/16 07:53 Room Air 04/27/16 07:13 36.6 88 20 116/70 96 Room Air 04/27/16 00:00 Room Air 04/26/16 22:52 36.7 56 19 133/77 97 Room Air 04/26/16 20:00 Room Air 04/26/16 16:45 Room Air Physical Exam General Appearance: WD/WN, no apparent distress Eyes: normal inspection, sclerae normal ENT: hearing grossly normal Neck: supple, trachea midline Respiratory/Chest: chest non-tender, no respiratory distress, no accessory muscle use, + rales (bilateral lungs inspiratory and expiratory), + wheezing Cardiovascular: regular rate, rhythm Abdomen: normal bowel sounds, soft Extremities: normal range of motion Neurologic/Psychiatric: alert, normal mood/affect Skin: normal color, warm/dry, no rash Laboratory Results CT SCAN OF THE ABDOMEN COMBO LIVER PROTOCOL CLINICAL HISTORY: Follow-up hepatic lesion. COMPARISON STUDY: Chest CT dated 04/25/2016. TECHNIQUE: Before and following the IV administration of 119 cc of Optiray 320, CT scan of the abdomen is performed from the lung bases to the pelvic inlet utilizing the liver protocol. Images are reviewed in the axial, sagittal, and coronal planes. IV contrast was administered without complication. Automated dose control exposure was utilized. CT DOSE: 765.06 mGycm FINDINGS: Lung bases: The heart is mildly enlarged and without pericardial effusion. There is patchy groundglass consolidation present at both lung bases. This is unchanged from 04/25/2016. No pleural effusion is identified. A small hiatal hernia is present. Liver: The contrast-enhanced liver is enlarged, measuring 19.5 cm in length. The liver demonstrates diffusely diminished attenuation consistent with severe hepatic steatosis. Fatty sparing is noted adjacent to gallbladder fossa. There is no intrahepatic biliary ductal dilatation. There is a 1.9 cm lesion in hepatic segment VII identified on image #77 of the arterial phase series. This demonstrates foci of peripheral and discontinuous nodular enhancement with gradual fill-in. The imaging kinetics are consistent with a benign hemangioma. No additional hepatic lesions are seen. Hepatic and portal vasculature: Hepatic arterial anatomy is conventional. The hepatic veins, portal veins, superior mesenteric vein, and splenic vein are patent. Gallbladder: The gallbladder is contracted. The gallbladder wall appears thickened and hyperemic. Spleen: Normal in size and attenuation. There are small catheter site splenic granulomas. Pancreas: Unremarkable. Adrenal glands: Unremarkable. Kidneys: No renal calculi are identified on the unenhanced series. The contrast enhanced kidneys are normal in size and without hydronephrosis. A small extrarenal pelvis is noted on the right. The kidneys enhance symmetrically. Abdominal vasculature: The abdominal aorta is normal in course and caliber noting moderate to advanced atherosclerotic calcification. This is significantly advanced for age. Bowel: Visualized portions of the small bowel and colon are normal in course and caliber. Peritoneum: There is no intraperitoneal free air or abdominal ascites. Lymphadenopathy: None. Skeletal structures: Mild degenerative change is noted throughout the lumbar spine. A posterior disc bulge is noted at L3-L4. No lytic or blastic lesions are seen. IMPRESSION: 1. Hepatomegaly and severe hepatic steatosis. 2. There is a 1.9 cm lesion in hepatic segment VII, corresponding to the lesion seen on the 04/25/[address] The enhancement kinetics are consistent with a benign hemangioma. 3. No additional hepatic lesions are identified. 4. Mild cardiomegaly. 5. There is significantly age advanced atherosclerotic calcification of the abdominal aorta. 6. Foci of patchy groundglass consolidation are present at both lung bases. This is similar to the 04/25/[address] and may represent infectious or inflammatory pneumonitis. Clinical correlation will be required. Item Value Date Time Gram Stain - Final Complete 04/25/162044 Sputum Expectorated Sputum Shiga Toxin Test - Preliminary Resulted 04/25/162044 Stool C.difficile Toxin B Gene (PCR) - Final Complete 04/25/162044 Stool No C. difficile toxin B gene detected MRSA DNA Surveillance Screen - Final Complete 04/25/16 174 Nasal Specimen Negative for MRSA by DNA Probe Last 24 Hours Test 04/27/16 06:10 04/27/16 13:32 White Blood Count 6.29 K/uL Red Blood Count 4.45 M/uL Hemoglobin 14.5 g/dL Hematocrit 40.5 % Mean Corpuscular Volume 91.0 fL Mean Corpuscular Hemoglobin 32.6 pg Mean Corpuscular Hemoglobin Concent 35.8 g/dl RDW Standard Deviation 42.6 fL RDW Coefficient of Variation 12.7 % Platelet Count 120 K/uL Mean Platelet Volume 11.6 fL Sodium Level 139 mmol/L Potassium Level 3.9 mmol/L Chloride Level 103 mmol/L Carbon Dioxide Level 27 mmol/L Anion Gap 9.0 mmol/L Blood Urea Nitrogen 3 mg/dl Creatinine 0.67 mg/dl Est Creatinine Clear Calc Drug Dose 127.4 ml/min Estimated GFR () 135.4 Estimated GFR (Non- 116.9 BUN/Creatinine Ratio 4.0 Random Glucose 78 mg/dl Calcium Level 8.6 mg/dl Phosphorus Level 3.9 mg/dl Magnesium Level 2.3 mg/dl Ferritin 328.4 ng/ml Albumin 3.0 gm/dl Influenza Type A (RT-PCR) Neg for Influ A Influenza Type B (RT-PCR) Neg for Influ B Assessment and Plan Patient with multiple weeks of nonspecific symptoms including N/V/D, sore throat , SOB, and sweats/chills. Viral studies and Mycoplasma/legionalla studies pending. Repeat flu and HIV negative. Patient is tolerating Levaquin well and continues to improve. Recommend completing 10 days of Levaquin total due to severity of patient's disease and chest CT findings. He should follow up with ID next week as well. Thanks PROVIDER ADDENDUM: Patient reviewed with Ms. Segura. Agree with above assessment.
[2016-04-27] MEDS ORDERED: GABAPENTIN 600MG Q12H DOSE PO SCH (18:00)
[2016-04-28] MEDS ORDERED: GABAPENTIN 600MG X1 DOSE PO SCH (06:00)
[2016-04-28 10:54] LABS: LEGIONELLA ANTIGEN NOT DETECTED
[2016-04-28] MEDS ORDERED: LEVOFLOXACIN 750 MG TAB PO SCH (11:00)
[2016-04-28 20:38] LABS: PARAINFLUENZA 1 <1:8 (<1:8); PARAINFLUENZA 2 <1:8 (<1:8); PARAINFLUENZA 3 <1:8 (<1:8)
[2016-04-29] MEDS ORDERED: GABAPENTIN 600 MG TAB PO ONE ×2 (06:00)
--- NOTE | 2016-05-04 09:07 | Discharge Summary ---
Discharge Summary Admission Date: Apr 25, 2016 at 14:34 Discharge Date: Apr 27, 2016 Discharge Disposition: Home Principal Diagnosis: Mycoplasma Pneumonia Hyponatremia-resolved Acute gastroenteritis-resolved Alcohol abuse Elevated D-dimer Benign hemangioma of liver 1.8cm Hepatic Steatosis Current everyday smoker Procedures: None. Vaccinations: None Consultations: pulm, ID Medication Reconciliation New Medications: Nicotine (Nicoderm Cq 21MG Patch) 21 Mg/24 Hr Dis 1 PATCH TD DAILY for 15 Days, #15 PATCH 1 Refill Levofloxacin (Levofloxacin) 750 Mg Tab 750 MG PO DAILY@11 for 7 Days, #7 TAB Lorazepam (Lorazepam) 1 Mg Tab 1 MG PO HS PRN for Anxiety/Agitation for 10 Days, #10 TAB Continued Medications: Albuterol Sulfate (Proair Respiclick) 108 Mcg/Act Aer 2 PUFF INH QID PRN for SOB/Wheezing Diclofenac (Voltaren) 75 Mg Tabcr 75 MG PO BID PRN for Pain, TAB WITH FOOD Gabapentin (Gabapentin) 300 Mg Cap 300 MG PO QID PRN for Pain Hydroxyzine Hcl (Atarax) 50 Mg Tab 25 MG PO QID PRN for Anxiety, TAB Pregabalin (Lyrica) 50 Mg Cap 50 MG PO BID, CAP Tramadol (Ultram) 50 Mg Tab 50 MG PO Q8H PRN for Pain, TAB Admission Information HPI (per Admitting provider): 46 year old male who presents to the ER with complaints of nausea, vomiting, diarrhea, sinus congestion, cough, and shortness of breath. Patient reports he started to get about a month and a half ago. After review of records, patient was evaluated by his PCP on 02/29/16 and was given Augmentin. He was evaluated again on 03/09/16 and had no improvement in his symptoms so he then was given a z-pack. Patient reports he continues to feel poor. He notes no improvement in his symptoms since taking the antibiotics. He symptoms got acutely worse over the past few days. He reports he developed shortness of breath last evening. He reports an occasional cough productive for a small amount of white sputum. He reports multiple episodes of vomiting and diarrhea over the past few days. He denies hematemesis, coffee ground emesis, BRBPR, or dark tarry stools. No abdominal pain. He feels as though he has lost weight but he is unsure of how much. He did not take his temperature at home but reports several episodes of extensive diaphoresis. He drinks 6-12 beers on a daily basis; last drink was yesterday afternoon. He denies chest pain, lightheadedness, dizziness, or syncopal events. In the ER, patient had a CT chest that showed multifocal groundglass opacities throughout the lungs with mild diffuse bronchial wall thickening suggesting an infectious process although other etiologies such as eosinophilic pneumonia could have this imaging appearance. Na+ is found to be 128, he had mild elevation in his LFTs. Patient was given IVF, Vanco, Zosyn, and Levaquin. Physical Exam (per Admitting): General Appearance: no apparent distress Head: normocephalic Eyes: normal inspection ENT: hearing grossly normal Neck: supple, no JVD Respiratory/Chest: no respiratory distress, + decreased breath sounds, + wheezing (scattered BL, L > R ) Cardiovascular: regular rate, rhythm, no edema, normal peripheral pulses Abdomen/GI: normal bowel sounds, non tender, soft Extremities/Musculoskelatal: normal inspection, no calf tenderness Neurologic/Psych: no motor/sensory deficits, alert, normal mood/affect, oriented x 3 Skin: normal color, + diaphoresis Hospital Course 46 yoM heavy drinker/smoker presented yesterday with 2 weeks of nausea, vomiting , diarrhea, sinus congestion, cough and shortness of breath. He failed outpatient treatment of URI symptoms with Augmentin and a Zpak given on two separate occasions in Feb 2016. CT revealed atypical findings-pulm consulted; also with 1.8cm hepatic lesion. PNEUMONIA 2/2 MYCOPLASMA - CT showing multifocal pneumonia, possible eosinophilic pneumonia? - consider aspiration due to patient's drinking history - saturating well on room air - s/p Levaquin, Zosyn, and Vanco in ED -continued with Levaquin and Zosyn on the floor; ID consulted for assistance - influenza swab negative -HIV negative - nebs- will change to PRN as breathing improved and no wheezing on exam. - blood and sputum cultures negative - will need follow up CT chest in 3 months -Mycoplasma was pending at discharge along with parainfluenza and Legionella-- Mycoplasma !gG was positive (See below) HYPONATREMIA-hypovolemic, hypotonic - likely chronic due to ETOH use and recent GI illness -IVF overnight with appropriate rise in Na. -as he is tolerating PO, will stop IVF after this bag is complete and cont drinking to thirst/eating N/V/D-resolved per patient - ? viral gastroenteritis -stool studies-negative, c-diff negative - continue with supportive care with IVF, PRN antiemetics ETOH ABUSE - reports drinking 6-12 beers/day, last drink yesterday afternoon (just prior to admission) - start ETOH withdrawal protocol with gabapentin -holding Lyrica while on Gabapentin, however, patient is tremulous and is reporting insomnia overnight last night -Ativan PRN was helpful ELEVATED D. DIMER -CT negative for PE -BLLE dopplers also negative LIVER LESION-BENIGN HEMANGIOMA - 1.8cm right hepatic lesion noted on CT chest - CT Liver with contrast was performed and revealed lesion consistent with a benign hemangioma. On day of discharge, patient was ambulating around the hallways, eating well, had no work of breathing, was afebrile and reported coughing, sore throat and congestion had improved. He was sent home in stable condition with close follow -up scheduled with Dr. Reyes. Of, note Mycoplasma returned positive after he was discharged. I called him and left a message for him to call me back on my cell. I left the number to call. I also sent a staff message to Dr. Reyes in [employer] about the positive result. I discussed with Pulmonology who said this should have been completely treated with the Levaquin course he was given. Pt should be instructed to follow-up if symptoms return. Total time spent on discharge = 60 minutes This includes examination of the patient, discharge planning, medication reconciliation, and communication with other providers. Discharge Instructions Discharge Instructions Admission Reason for Admission: Hyponatremia, Pneumonia Discharge Discharge Diagnosis / Problem: Community-acquired pneumonia Discharge Goals Goal(s): Prevent Disease Progression Activity Recommendations Activity Limitations: resume your previous activity . Instructions / Follow-Up Instructions / Follow-Up Please take all medications as instructed. I strongly recommend that you stop smoking. Please use the Nicotine patch provided to assist with this. I strongly recommend that you completely avoid alcohol. Ativan has been provided to use as needed for anxiety, which can be refilled/adjusted by Dr. Reyes. You need a follow-up chest x-ray in 4 weeks to ensure resolution of the pneumonia. You will also need a repeat CT scan of the chest in 3 months. This can be ordered by your primary care physician. You have a follow-up appointment scheduled with Dr. Reyes on 05/03 @ 1:10pm. Please bring all paperwork from this hospitalization. There are some labs still pending today that will need to be followed up at this appointment. It was a pleasure taking care of you! Call if you have any questions or problems. You can reach a [facility] 24 hours a day by calling [phone]. Take care of yourself. Kallie Ceballos, DO [facility] Additional Copies To Rosy Reyes M.D. (MEDICAL); Pratik Fuller MD
[2016-05-10] MEDS ORDERED: HYDR-4330 PO (11:04)
[2016-05-10] MEDS ORDERED: ATV/1 PO (11:07)
[2016-08-11] MEDS ORDERED: ALBU18002 INH (14:44)
== END 2016-04-27 16:30 | disposition home or self-care (01) | DRG 197 ==
LOC: ENRESERVTM → ENRESERVDT → C.EDB 11:23 → C.MS2W 14:34 → EDBEDREQ 15:08
PROVIDERS: ADMIT Hospitalist; ATTEND Hospitalist
DX: J82 Pulmonary eosinophilia, not elsewhere classified (principal); E87.1 Hypo-osmolality and hyponatremia; A08.4 Viral intestinal infection, unspecified; F10.10 Alcohol abuse, uncomplicated; I25.10 Atherosclerotic heart disease of native coronary artery without angina pectoris; I10 Essential (primary) hypertension; F12.90 Cannabis use, unspecified, uncomplicated; F17.210 Nicotine dependence, cigarettes, uncomplicated; K76.0 Fatty (change of) liver, not elsewhere classified; K44.9 Diaphragmatic hernia without obstruction or gangrene; F41.9 Anxiety disorder, unspecified; E83.119 Hemochromatosis, unspecified; D69.6 Thrombocytopenia, unspecified; J43.9 Emphysema, unspecified; M54.9 Dorsalgia, unspecified

== ENCOUNTER → 2016-05-10 | Outpatient (CLI) | payer OTHER ==
[~2016-05-10] VITALS: Ht 170.2 cm; Wt 68.1 kg
[~2016-05-10] MED LIST changes: +ALBU18002 INH; -ALBUAER2 INH; -ATR25 PO; +ATV/1 PO; +ATV1 PO; -CLX/20 PO; +CYCL10TA6 PO; +DICL-201 PO; +GABA1CAP4 PO; +HYDR-3124 PO; +HYDR-3126 PO; +HYDR-4330 PO; -HYDR-5688 PO; +LVQ750 PO; +LYR50 PO; +NICO21DI35 TD; -PRED10TA PO; +PRED20TA PO; +TRAM-10 PO
[2016-05-10 11:09] VITALS: Ht 170.2 cm; Wt 68.1 kg
--- NOTE | 2016-05-10 11:52 | PAT Medication Instructions ---
Service Date May 10, 2016. Current Home Medication List Albuterol Sulfate (Proair Respiclick), 2 PUFF INH QID PRN for SOB/Wheezing Gabapentin (Gabapentin), 300 MG PO TID PRN for Pain Hydrocodone-Acetaminophen (Lortab 5-325 mg), 0.5-1 TAB PO TID PRN for PRN Hydroxyzine Hcl (Atarax), 25 MG PO QID PRN for Anxiety Lorazepam (Ativan), 1 MG PO TID PRN for PRN Pregabalin (Lyrica), 50 MG PO BID PRN for PRN Tramadol (Ultram), 50 MG PO Q8H PRN for Pain Medication Instructions For Your Scheduled Surgery - Take the following medications the morning of surgery with a sip of water OTHERWISE NOTHING TO EAT OR DRINK AFTER MIDNIGHT: Tramadol (Ultram), 50 MG PO Q8H PRN for Pain (may take up to 4 hours prior to surgery if needed) Hydrocodone-Acetaminophen (Lortab 5-325 mg), 0.5-1 TAB PO TID PRN for PRN (may take up to 4 hours prior to surgery if needed) Gabapentin (Gabapentin), 300 MG PO TID PRN for Pain Hydroxyzine Hcl (Atarax), 25 MG PO QID PRN for Anxiety Lorazepam (Ativan), 1 MG PO TID PRN for PRN Pregabalin (Lyrica), 50 MG PO BID PRN for PRN Albuterol Sulfate (Proair Respiclick), 2 PUFF INH QID PRN for SOB/Wheezing (use if needed; BRING TO HOSPITAL) - Take the following medications as scheduled the night before surgery: Tramadol (Ultram), 50 MG PO Q8H PRN for Pain Hydrocodone-Acetaminophen (Lortab 5-325 mg), 0.5-1 TAB PO TID PRN for PRN Gabapentin (Gabapentin), 300 MG PO TID PRN for Pain Hydroxyzine Hcl (Atarax), 25 MG PO QID PRN for Anxiety Lorazepam (Ativan), 1 MG PO TID PRN for PRN Pregabalin (Lyrica), 50 MG PO BID PRN for PRN Albuterol Sulfate (Proair Respiclick), 2 PUFF INH QID PRN for SOB/Wheezing If you have any questions please call us at [phone] (Jackie Rosas PA-C ) or [phone] or [phone]
[2016-05-10 12:35] LABS: BASO % 0.9 %; BASO ABS # 0.07 K/uL (0-0.2); COMPLETE YES; HEMATOCRIT 43.6 % (42-52); IG% 0.6 %; LYMPH ABS # 1.48 K/uL (1.2-3.4); MEAN CELL VOLUME 91.4 fL (80-100); MEAN CORPUSCULAR HEMOGLOBIN 32.3 pg (25-34); MEAN CORPUSCULAR HGB CONC 35.3 g/dl (32-36); MEAN PLATELET VOLUME 9.7 fL (7.4-10.4); MONO % 10.4 %; NEUT % 69.1 %; PLATELET COUNT 316 K/uL (130-400); RED BLOOD COUNT 4.77 M/uL (4.7-6.1); WHITE BLOOD COUNT 8.21 K/uL (4.8-10.8)
[2016-05-10 12:39] LABS: URINE APPEARANCE CLEAR (CLEAR); URINE BILIRUBIN NEG (NEG); URINE COLOR YELLOW; URINE NITRITE NEG (NEG); UROBILINOGEN NEG (NEG)
[2016-05-10 12:42] LABS: MANUAL MICROSCOPIC REQUIRED? NO; REVIEW REQ? NO
--- NOTE | 2016-05-10 12:44 | DIAGNOSTIC IMAGING REPORT ---
CHEST PREADMISSION(PA/LAT) CLINICAL HISTORY: Preoperative chest COMPARISON STUDY: 04/25/2016 FINDINGS: The cardiac and mediastinal contours remain stable. There is no lobar consolidation. There is mild lower lobe bronchial wall thickening, similar to the prior study. There are no significant pleural effusions. There is a tiny calcific/metallic density projected over the left upper lung zone unchanged the prior study.[ There is no failure. IMPRESSION: Mild lower lobe bronchial wall thickening, similar to the prior study. No acute findings. Electronically signed by: Oneil Hernandez M.D. 05/10/2016 12:42 PM Dictated Date/Time: 05/10/2016 12:41 PM
[2016-05-10 13:10] LABS: BUN/CREATININE RATIO 3.8 (10-20); CREATININE 0.56 mg/dl (0.60-1.40)
== END | disposition home or self-care (01) ==
LOC: C.LAB 08:00 → EDSTATUS 05-25 11:30
PROVIDERS: ATTEND Orthopaedic Surgery Orthopaedic Surgery of the Spine
DX: Z01.810 Encounter for preprocedural cardiovascular examination (principal); Z01.812 Encounter for preprocedural laboratory examination

== ENCOUNTER 2016-08-11 15:26 | Emergency (ER) | payer OTHER ==
[~2016-08-11] VITALS: Ht 170.2 cm; Wt 66.9 kg
[~2016-08-11 15:26] MED LIST changes: -ATV1 PO; -CYCL10TA6 PO; -DICL-201 PO; -GABA1CAP4 PO; -HYDR-3124 PO; -LVQ750 PO; -NICO21DI35 TD; -PRED20TA PO
[2016-08-11 15:32] VITALS: TEMP 36.9; Ht 170.2 cm; Wt 66.9 kg
[2016-08-11] MEDS ORDERED: CYCL10TA6 PO (15:59)
[2016-08-11] MEDS ORDERED: HYDR-3124 PO (15:59)
[2016-08-11] MEDS ORDERED: OXYCODONE HCL IR 5 MG TAB (IMMEDIATE RELEASE) PO STA (16:29)
[2016-08-11] MEDS ORDERED: PRED20TA PO (16:38)
--- NOTE | 2016-08-11 16:39 | EMERGENCY ROOM VISIT NOTE ---
ED Visit Note First contact with patient: 15:42 CHIEF COMPLAINT: Low back pain HISTORY OF PRESENT ILLNESS: This 46-year-old male patient presents to the emergency department ambulatory complaining of pain in the low back which is chronic in nature. The patient states that he fell approximately 2 years ago from a standing position and has had back pain intermittently since then. He states that his back pain flared up approximately 2 days ago. The pain is worse in the right side of the back and radiates down the right leg. He reports a feeling of pins and needles in the right leg. He describes his discomfort as sharp and rates it a 7-8/10. The patient has previously seen [facility] for his back pain and states that they had done MRIs in the past. He states he was supposed to have surgery, but anesthesia "backed out." He states that [facility] will no longer see him. His primary care provider made him a referral to pain management today. He does not yet have an appointment with him. He has been taking Flexeril which is prescribed by his primary care provider, but states they will not prescribe him any pain medication. The patient denies any loss of control of their bowel or bladder functions. There has been no leg numbness or weakness, and no change in sensation. No nausea or vomiting or abdominal pain. No chest pain or shortness of breath. No dysuria or increased urinary frequency. REVIEW OF SYSTEMS: A review of systems was performed with positives and pertinent negatives listed in the history of present illness. All other systems were reviewed and are negative. ALLERGIES: No known drug allergies MEDICATIONS: Hydroxyzine, gabapentin, Flexeril, pro-air inhaler PMH: Back pain, anxiety SOCIAL HISTORY: The patient lives locally with family. He is a smoker and denies alcohol use. PHYSICAL EXAM: VITALS: Vitals are noted on the nurse's note and reviewed by myself. Vital signs stable. GENERAL: This is a 46-year-old male, in no acute distress, nondiaphoretic, well- developed well-nourished. SKIN: The skin was without rashes, erythema, edema, or bruising. Capillary refill less than 2 seconds. NECK: Supple without nuchal rigidity. No cervical spine tenderness. No paraspinous muscle tenderness. HEART: Regular rate and rhythm without murmurs gallops or rubs. LUNGS: Clear to auscultation bilaterally without wheezes, rales or rhonchi. ABDOMEN: Positive bowel sounds x 4. Soft, nontender, without masses or organomegaly. Fulton sign negative. MUSCULOSKELETAL: No muscle atrophy, erythema, or edema noted of the back. There is no tenderness over the lumbar spinous processes. There is mild tenderness over the right paraspinous muscles. There is no tenderness over the thoracic spine or paraspinous muscles. There are no muscle spasms present. The patient is slow to move around with maximum tenderness with flexion. Negative straight leg raise test. NEURO: Patient was alert and oriented to person place and time. Normal sensation to light and sharp touch. Deep tendon reflexes 2+ in the lower extremities. Dorsalis pedis pulse 2+ bilaterally. Strength 5/5 and equal in the bilateral lower extremities. EMERGENCY DEPARTMENT COURSE: The patient was evaluated as above. His physical exam is unremarkable. The patient has been seen here previously multiple times for his chronic back pain. He has previously seen orthopedics and has had an MRI. His most recent visit with orthopedics was approximately 3 months ago and he did receive a narcotic prescription at this time, per the PDMP. I informed the patient that I do not feel that narcotics are the appropriate treatment for his chronic back pain. I did offer him a prescription of tramadol, but he stated that "that does nothing for my pain." He will be placed on a taper of prednisone. He was given 1 tablet of OxyIR in the emergency department and instructed to follow-up with his primary care provider and pain management for further evaluation of this ongoing back pain. The patient did seem to be slightly irritated that he would not be receiving a prescription for narcotics. He did verbalize understanding and was discharged home in good condition. DIAGNOSIS: Chronic low back pain Problem List Medical Problems: (1) Anxiety Status: Chronic (2) Chronic back pain Status: Chronic (3) Edentulous Status: Chronic (4) ETOH abuse Status: Chronic Surgical Problems: (1) History of dental surgery Status: Chronic Current/Historical Medications Scheduled Prednisone (Prednisone), 0 PO DAILY Scheduled PRN Albuterol Sulfate (Proair Respiclick), 2 PUFFS INH QID PRN for SOB/Wheezing Cyclobenzaprine Hcl (Flexeril), 10 MG PO TID PRN for Muscle Spasm Gabapentin (Gabapentin), 300 MG PO TID PRN for Pain Hydroxyzine Hcl (Atarax), 25 MG PO QID PRN for Anxiety Allergies Coded Allergies: No Known Allergies (Unverified , 05/10/16) Vital Signs Date Time Temp Pulse Resp B/P Pulse Ox O2 Delivery O2 Flow Rate FiO2 08/11/16 16:45 96 18 141/85 100 08/11/16 15:32 36.9 95 18 156/90 99 Room Air Medications Administered Medications (Trade) Dose Ordered Sig/Marta Route Start Time Stop Time Status Last Admin Dose Admin Oxycodone HCl (Roxicodone Immediate Rel Tab) 5 mg NOW STAT PO 08/11/16 16:29 08/11/16 16:30 DC 08/11/16 16:40 5 MG Departure Information Impression Primary Impression: Chronic low back pain with sciatica Dispostion Home / Self-Care Condition GOOD Prescriptions Prednisone (Prednisone) 20 Mg Tab 0 PO DAILY, #18 TAB 3 DAILY FOR 3 DAYS, THEN 2 DAILY FOR 3 DAYS, THEN 1 DAILY FOR 3 DAYS. Prov: Martine Hodge ., SHREYA 08/11/16 Referrals Rosy Reyes M.D. (MEDICAL) (PCP) Patient Instructions [facility] Additional Instructions You have been treated in the Emergency Department for Back Pain. You have received pain medicine in the emergency department which impairs your ability to operate a vehicle. It is illegal for you to drive after receiving these medicines. Prednisone as prescribed. Take this medication in the morning, as it may make it difficult to sleep. For pain control, you can use the following [id number] medicines (if >12 yo): - Regular strength (325mg/tab) Tylenol (acetaminophen) 2 tabs every 4-6 hours as needed. Do not exceed 12 tablets in a 24 hour period. Avoid taking more than 4 grams (4000 mg) of Tylenol per day. This includes any other sources of acetaminophen you may take on a regular basis. - Regular strength (200 mg/tab) Advil (ibuprofen) 1-2 tabs every 4-6 hours as needed. Do not exceed a dose of 3200 mg per day. Follow-up with your specialist as needed. Return to the Emergency Department if your current symptoms worsen despite treatment course outlined above, or if you develop any of the following symptoms : intractable pain despite aforementioned treatment course, loss of control of your bowel or bladder, numbness or tingling in your groin, or development of a fever. Problem Qualifiers Primary Impression: Chronic low back pain with sciatica Back pain laterality: right Sciatica laterality: sciatica of right side Qualified Codes: M54.41 - Lumbago with sciatica, right side; G89.29 - Other chronic pain
[2016-08-11 16:45] VITALS: BP 141/85; PULSE 96; O2SAT 100
[2016-08-11] MEDS ORDERED: GABA1CAP4 PO (20:34)
== END 2016-08-11 16:43 | disposition home or self-care (01) ==
LOC: C.EDB 15:28 → C.EDD 16:43
DX: M54.41 Lumbago with sciatica, right side (principal); G89.29 Other chronic pain; F41.9 Anxiety disorder, unspecified; F17.210 Nicotine dependence, cigarettes, uncomplicated; Z79.899 Other long term (current) drug therapy; F10.10 Alcohol abuse, uncomplicated

== ENCOUNTER → 2017-03-28 | Day surgery (SDC) | payer OTHER ==
[2017-03-27 14:38] VITALS: Ht 170.2 cm; Wt 68.2 kg
[~2017-03-28] VITALS: Ht 170.2 cm; Wt 68.2 kg
[~2017-03-28] MED LIST changes: -ATV/1 PO; +CYCL10TA6 PO; +DEXAMETHASONE SOD INJ 4 MG/ML VIAL ONE; +FLUT50SP45 NAE; +GABA1CAP4 PO; +HYDR-3124 PO; -HYDR-3126 PO; -HYDR-4330 PO; +HYDR-5688 PO; +IBUP-1451 PO; +LIDOCAINE HCL 1% MPF 5 ML VIAL ONE; -LYR50 PO; -TRAM-10 PO
== END | disposition home or self-care (01) ==
LOC: EDSTATUS 07:45 → C.PAT 13:27
PROVIDERS: ATTEND Orthopaedic Surgery Orthopaedic Surgery of the Spine
DX: M47.896 Other spondylosis, lumbar region (principal); Z53.8 Procedure and treatment not carried out for other reasons; I10 Essential (primary) hypertension; F32.9 Major depressive disorder, single episode, unspecified; F17.210 Nicotine dependence, cigarettes, uncomplicated; Z79.899 Other long term (current) drug therapy

== ENCOUNTER 2024-03-23 19:43 | Observation (INO) ==
--- NOTE | 2024-03-23 20:08 | Emergency Department Note ---
Impression & Plan Contact with powered saw as cause of accidental injury, Multiple open fractures of fingers ED Provider Note Chief Complaint: "Right hand/fingers and tablesaw". History of Present Illness: This patient is a [id number] 53-year-old male who presents to the Emergency Department via private vehicle for evaluation of their right hand, digits 1, 2 and 3 lacerations. Patient sustained the laceration while just prior to arrival was operating a table saw when he notes that the piece of wood pulled the hand into the saw causing the fingers to strike the blade. Tetanus vaccine likely nearly out of date, about 9 years ago. Patient notes allergy to lisinopril, otherwise no known drug allergies. Pain currently 10/10 in digits of the right hand. Medications: As noted below Allergies: Lisinopril PMH: As noted below SHx: As noted below ROS: A complete 10 review of systems was reviewed. Physical Exam: VITAL SIGNS - Vital signs and nursing notes were reviewed. Hypertensive, otherwise stable and afebrile. GENERAL -53-year-old male appearing his stated age who is in no acute distress. Communicates well with provider and answers questions appropriately. SKIN -there are several wounds/lacerations involving exposed bone to digits of the right hand, digits 1, 2 and 3. Minimal bleeding noted. Tendon injuries noted. MUSCULOSKELETAL -right hand without evidence of obvious injury except for digits 1, 2 and 3. NEUROLOGIC -sensation intact throughout the hand and uninvolved digits. VASCULAR - Capillary refill was brisk. ED Course: Patient was seen and evaluated as above. Patient presents for assessment of injury to digits 1, 2 and 3 of the right hand status post tablesaw injury. These are large injuries involving multiple pieces of bone and tendons. These are open injuries. X-ray was performed and IV access was established and IV antibiotics administered prophylactically. Per my interpretation x-ray reveals multiple bony injuries and soft tissue wounds of digits 1, 2 and 3. IV analgesia also ordered. Tetanus vaccine updated. The patient will require orthopedic intervention in the operative area. I discussed presentation with Dr. Benoit, he came to evaluate the patient and patient will be taken to the operating room for further evaluation and management. Please refer to further documentation regarding his stay. In the evaluation and treatment this patient the following differential diagnoses were retained: Fracture, dislocation, subluxation, contusion, among others. Past Med/Surg History Problem List (Updated 03/24/24 @ 01:29 by Miguel Mann PA-C) Multiple open fractures of fingers (Acute) Contact with powered saw as cause of accidental injury (Acute) Laceration of right hand Exertional shortness of breath RUQ abdominal pain Colon cancer screening Sciatica Encounter for pre-operative examination Edentulous (Chronic) ETOH abuse (Chronic) History of dental surgery (Chronic) Hypertension, goal below 140/90 PAD (peripheral artery disease) Liver nodule Liver disease due to alcohol Peripheral neuropathy Spinal stenosis, lumbar region with neurogenic claudication Disc degeneration, lumbar Spondylolisthesis, lumbar region Anxiety (Chronic) Medical History (Updated 03/24/24 @ 01:29 by Miguel Mann PA-C) Current smoker Adenocarcinoma of lung COPD with emphysema PVD (peripheral vascular disease) Chronic back pain "PINCHED NERVES ALL OVER" Hx of gout Arthritis Peripheral neuropathy PVD (peripheral vascular disease) CAD (coronary artery disease) [facility] ? NAME Irregular heart beat Hypertension Hyperlipidemia Seasonal allergies Liver nodule PT DENIED LIVER PROBLEMS Mood disorder Surgical History History of anesthesia reaction SLOW TO WAKE UP History of tooth extraction H/O vascular surgery 3 TOTAL STENTS IN LEGS Family History Grandmother (Paternal) Family history of diabetes mellitus Other No pertinent family history in first degree relatives Social History Smoking Status: Current every day smoker Tobacco Type: Cigarettes Cigarettes Per Day: 20; Second Hand Exposure: Yes; Do You Dip or Chew Tobacco: No; Hx Alcohol Use: Yes Alcohol type: beer Hx Substance Use: No Preferred Language: Malian Communication Ability: Effective Chief Informatics Officer Required: No Beliefs That Will Affect Care: None Current Living Situation: Significant Other Current Living Situation Comment: LIVES WITH GIRLFRIEND AND HER SON Other Information That Helps Us Care for You: No Feels Safe at Home: Yes Safety Concerns: Feels Safe At This Time Assistive Devices: None Allergies Allergies Allergy/AdvReac Type Severity Reaction Status Date / Time lisinopril Allergy Severe PALPATATIONS Verified 06/14/23 09:50 & SWEATING, DISORIENTATION Home Meds Home Medications Medication Instructions Recorded Confirmed amlodipine 10 mg tablet 10 mg PO QAM 11/14/18 06/14/23 aspirin 81 mg tablet,delayed 81 mg PO QAM 05/23/19 06/14/23 release (Aspir-) fluticasone furoate 27.5 2 spray intranasal BID PRN Nasal 05/23/19 06/14/23 mcg/actuation nasal Congestion spray,suspension (Flonase Sensimist) rosuvastatin 20 mg tablet (Crestor) 20 mg PO DAILY 09/01/22 06/14/23 Previous Rx's Medication Instructions Recorded tizanidine 4 mg tablet 4 mg PO BID PRN muscle spasticity 01/20/21 #60 tabs bupropion HCl (smoking deter) 150 150 mg PO BID #60 tabs 09/01/22 mg tablet,12 hr sustained-release(smoking deterrent) umeclidinium 62.5 mcg-vilanterol 1 inh inhalation DAILY #60 ea 09/01/22 25 mcg/actuation powdr for inhalation (Anoro Ellipta) albuterol sulfate 90 mcg/actuation 2 puff inhalation Q6H PRN 06/22/23 aerosol inhaler shortness of breath or wheezing #8.5 grams Results & Data (ED) Vital Signs Vital Signs - 24 hr 03/23/24 19:54 03/23/24 20:04 03/23/24 21:06 Temperature 36.8 C Temperature Source Oral Pulse Rate 88 135 H Pulse Rate [Apical] Pulse Rate [Finger] 88 Pulse Rhythm [Apical] Respiratory Rate 22 22 Respiratory Effort / Characteristics Respiratory Depth Blood Pressure 135/65 Blood Pressure [Left Arm] 128/58 L Blood Pressure Mean 88 Blood Pressure Mean [Left Arm] 81 Blood Pressure Position [Left Arm] Pulse Oximetry 100 100 Oxygen Delivery Method Room Air Room Air Oxygen Flow Rate Sepsis Recent Fever Within 48 Hours No Sepsis New/Unexplained Change in Mental Status No Sepsis Action Taken by Nursing No Action Required 03/23/24 23:53 Temperature 36.2 C L Temperature Source Temporal Artery Scan Pulse Rate Pulse Rate [Apical] 93 H Pulse Rate [Finger] Pulse Rhythm [Apical] Regular Respiratory Rate 12 Respiratory Effort / Characteristics Non-Labored Spontaneous Respiratory Depth Normal Blood Pressure Blood Pressure [Left Arm] 137/67 Blood Pressure Mean Blood Pressure Mean [Left Arm] 90 Blood Pressure Position [Left Arm] Sitting Pulse Oximetry 98 Oxygen Delivery Method Oxymask Oxygen Flow Rate 8 Sepsis Recent Fever Within 48 Hours Sepsis New/Unexplained Change in Mental Status Sepsis Action Taken by Nursing Laboratory Data 03/23/24 20:17 03/23/24 20:17 Lab Results 03/23/24 Range/Units 20:17 WBC 6.56 (4.8-10.8) K/ul RBC 4.22 L (4.70-6.10) M/uL Hgb 12.6 L (14.0-18.0) g/dl Hct 36.9 L (42.0-52.0) % MCV 87.4 (80.0-100.0) fL MCH 29.9 (25.0-34.0) pg MCHC 34.1 (32.0-36.0) g/dL RDW Std Deviation 42.1 (36.4-46.3) fL RDW Coeff of Scot 13.2 (11.5-14.5) % Plt Count 236 (130-400) K/uL MPV 9.9 (9.4-12.4) fL Sodium 136 (136-145) mmol/L Potassium 3.8 (3.5-5.1) mmol/L Chloride 103 (98-107) mmol/L Carbon Dioxide 23 (21-32) mmol/L Anion Gap 10 (3-11) BUN 14 (6-23) mg/dl Creatinine 0.76 (0.6-1.4) mg/dl Est Cr Clr Drug Dosing 107.5 ml/min eGFR 108.82 BUN/Creatinine Ratio 18.4 (10-20) Glucose 93 (70-99(Fasting)) mg/dl Calcium 8.9 (8.6-10.3) mg/dl Administered Medications Discontinued Medications Bupivacaine HCl (Bupivacaine 0.5 % 5 Mg/1 Ml Mpf 30ml Vial) Confirm Administered Dose 30 ml .ROUTE .STK-MED ONE Stop: 03/23/24 21:44 Last Admin: 03/23/24 23:30 Dose: 30 ml Documented By: PAZ Diphtheria/Pertussis/Tetanus Vacc (Diphther/Tetan/Pertus Vaccine (Tdap, Adol/Adult) 0.5ml) 0.5 ml IM .ONCE ONE Stop: 03/23/24 20:07 Last Admin: 03/23/24 20:32 Dose: 0.5 ml Documented By: KENDRA Hydromorphone HCl (Hydromorphone Inj 0.5 Mg/0.5 Ml Syr) 0.5 mg IV NOW STA Stop: 03/23/24 20:44 Last Admin: 03/23/24 20:50 Dose: 0.5 mg Documented By: DELORES Cefazolin Sodium (Ancef 2000mg) 2,000 mg in 15 mls @ 3.75 mls/min IV NOW STA Stop: 03/23/24 20:09 Last Admin: 03/23/24 20:21 Dose: 3.75 mls/min Documented By: KENDRA Morphine Sulfate (Morphine Sulfate 4 Mg/Ml 1 Ml Carp\\Vial) 4 mg IV NOW STA Stop: 03/23/24 20:09 Last Admin: 03/23/24 20:20 Dose: 4 mg Documented By: KENDRA Ondansetron HCl (Ondansetron Inj 2 Mg/Ml 2 Ml Vial) 4 mg IV NOW STA Stop: 03/23/24 20:09 Last Admin: 03/23/24 20:20 Dose: 4 mg Documented By: KENDRA Imaging Data Radiologist's Impression: Hand X-Ray 03/23/24 20:08 Exam(s): XR RIGHT HAND, 3 views EXAM: XR Right Hand Complete, 3 or More Views CLINICAL HISTORY: Table saw injury to finger. TECHNIQUE: Frontal, lateral and oblique views of the right hand. COMPARISON: No relevant prior studies available. FINDINGS: Bones/joints: Comminuted severely displaced fractures of the second proximal, middle and distal phalanges. Comminuted moderately displaced fracture of the tuft of the distal third phalanx. Osseous densities of the soft tissues of the thumb could are present foreign bodies. No dislocation. Soft tissues: Extensive lacerations to the second and to lesser degree third fingers. There is also nonspecific soft tissue swelling throughout the remaining fingers and hand. IMPRESSION: 1. Comminuted severely displaced fractures of the second proximal, middle and distal phalanges. 2. Comminuted moderately displaced fracture of the tuft of the distal third phalanx. 3. Extensive lacerations to the second and to lesser degree third fingers. 4. Osseous densities of the soft tissues of the thumb could are present foreign bodies. Electronically signed by: Sia Norman MD 03/23/24 22:34 PM Discharge Plan Visit Data Chief Complaint: Laceration/Cut (Suture/Dermabond) Stated Complaint: LACERATIONS TO THUMB, INDEX AND THIRD FINGERS ED Provider: [facility] Midlevel Provider: Miguel Mann Discharge Problem: Contact with powered saw as cause of accidental injury, Multiple open fractures of fingers Patient Disposition: Admitted As Inpatient Discharge Instructions Interventions: ED Discharge Assessment Last Done: 03/23/24 22:00
[2024-03-23] MEDS: ONDANSETRON INJ 2 MG/ML 2 ML VIAL IV STA (20:20)
[2024-03-23] MEDS: MoRPHine SULFATE 4 MG/ML 1 ML CARP\\VIAL IV STA (20:20)
[2024-03-23] MEDS: ceFAZolin 2000MG 2,000 MG/15 ML SYR IV STA (20:21)
[2024-03-23] MEDS: DIPHTHER/TETAN/PERTUS Vaccine (Tdap, Adol/Adult) 0.5mL IM ONE (20:32)
[2024-03-23 20:33] LABS: Hematocrit (blood only) 36.9 % (42.0-52.0); Hemoglobin 12.6 g/dl (14.0-18.0); Mean Corpuscular Hemoglobin 29.9 pg (25.0-34.0); Mean Corpuscular Hgb Conc 34.1 g/dL (32.0-36.0); Mean Corpuscular Volume 87.4 fL (80.0-100.0); Mean Platelet Volume 9.9 fL (9.4-12.4); Platelet Count 236 K/uL (130-400); RDW Coefficient of Variation 13.2 % (11.5-14.5); RDW Standard Deviation 42.1 fL (36.4-46.3); Red Blood Count 4.22 M/uL (4.70-6.10); White Blood Count 6.56 K/ul (4.8-10.8)
[2024-03-23 20:50] LABS: BUN Creatinine Ratio 18.4 (10-20); Calcium 8.9 mg/dl (8.6-10.3); Creatinine Clr Calc Pharmacy 107.5 ml/min; Potassium 3.8 mmol/L (3.5-5.1)
[2024-03-23] MEDS: HYDROmorphone INJ 0.5 MG/0.5 ML SYR IV STA (20:50)
--- NOTE | 2024-03-23 21:24 | Orthopedic Consultation ---
Date of Service March 23, 2024 Assessment & Plan (1) Laceration of right hand: I discussed the diagnosis and treatment options with him and his at bedside. I recommended emergently going to the operating room for irrigation debridement and possible partial amputation of the right index finger. He unde rstands the risk, benefits, and alternatives to procedure. He is electing to proceed. The decision was made for surgery. I we will likely admit him postoperatively and discharge him to home tomorrow. History of Present Illness Reason for Consultation: Tablesaw injury right index finger. Requesting Physician: Brooklyn Daily is a pleasant 53-year-old male who was using a table saw this evening when he sustained a tablesaw injury to his right index and middle fingers. He came to the emergency room. Radiographs demonstrated maceration and splitting of the index finger and a small injury to the tip of the middle finger. Orthopedics was consulted to evaluate and treat.. Allergies Allergy/AdvReac Type Severity Reaction Status Date / Time lisinopril Allergy Severe PALPATATIONS Verified 06/14/23 09:50 & SWEATING, DISORIENTATION Home Medications Medication Instructions Recorded Confirmed Type amlodipine 10 mg tablet 10 mg PO QAM 11/14/18 06/14/23 History aspirin 81 mg tablet,delayed 81 mg PO QAM 05/23/19 06/14/23 History release (Aspir-) fluticasone furoate 27.5 2 spray intranasal BID PRN Nasal 05/23/19 06/14/23 History mcg/actuation nasal Congestion spray,suspension (Flonase Sensimist) tizanidine 4 mg tablet 4 mg PO BID PRN muscle spasticity 01/20/21 06/14/23 Rx #60 tabs bupropion HCl (smoking deter) 150 150 mg PO BID #60 tabs 09/01/22 06/14/23 Rx mg tablet,12 hr sustained-release(smoking deterrent) rosuvastatin 20 mg tablet (Crestor) 20 mg PO DAILY 09/01/22 06/14/23 History umeclidinium 62.5 mcg-vilanterol 1 inh inhalation DAILY #60 ea 09/01/22 06/14/23 Rx 25 mcg/actuation powdr for inhalation (Anoro Ellipta) albuterol sulfate 90 mcg/actuation 2 puff inhalation Q6H PRN 06/22/23 06/22/23 Rx aerosol inhaler shortness of breath or wheezing #8.5 grams Past Med/Surg History Problem List (Updated 03/23/24 @ 21:23 by Cristofer Benoit DO) Laceration of right hand Exertional shortness of breath Current smoker Adenocarcinoma of lung COPD with emphysema RUQ abdominal pain Colon cancer screening PVD (peripheral vascular disease) Sciatica Encounter for pre-operative examination Edentulous (Chronic) ETOH abuse (Chronic) History of dental surgery (Chronic) Hypertension, goal below 140/90 PAD (peripheral artery disease) Liver nodule Liver disease due to alcohol Peripheral neuropathy Spinal stenosis, lumbar region with neurogenic claudication Disc degeneration, lumbar Spondylolisthesis, lumbar region Chronic back pain (Chronic) "PINCHED NERVES ALL OVER" Anxiety (Chronic) Medical History (Updated 03/23/24 @ 21:23 by Cristofer Benoit DO) Hx of gout Arthritis Peripheral neuropathy PVD (peripheral vascular disease) CAD (coronary artery disease) [facility] ? NAME Irregular heart beat Hypertension Hyperlipidemia Seasonal allergies Liver nodule PT DENIED LIVER PROBLEMS Mood disorder Surgical History History of anesthesia reaction SLOW TO WAKE UP History of tooth extraction H/O vascular surgery 3 TOTAL STENTS IN LEGS Family History Grandmother (Paternal) Family history of diabetes mellitus Other No pertinent family history in first degree relatives Social History Smoking Status: Current every day smoker Tobacco Type: Cigarettes Second Hand Exposure: Yes; Do You Dip or Chew Tobacco: No; Hx Alcohol Use: No Preferred Language: Armenian File Clerk Required: No Beliefs That Will Affect Care: None Current Living Situation: Significant Other Current Living Situation Comment: LIVES WITH GIRLFRIEND AND HER SON Feels Safe at Home: Yes Assistive Devices: Glasses Review of Systems All systems reviewed & are unremarkable except as noted in HPI & below. Physical Exam On physical exam of the right hand, the index finger has a longitudinal traumatic split from the PIP joint through the tip of the index finger. There is also a small injury to the tip of the right middle finger.. Constitutional WD/WN, vitals as above Eyes PERRL, conjunctivae normal, anicteric sclerae ENMT external ear and nose normal, oropharynx normal Neck trachea midline, no thyromegaly Respiratory normal respiratory effort Cardiovascular RRR, no murmur, no edema Gastrointestinal (Abdomen) normal bowel sounds, soft, nontender, no hepatosplenomegaly Psychiatric A+Ox3, euthymic affect Results & Data Results & Data Laboratory Results . Diagnostic Findings X-rays show a longitudinal split and multiple fractures of the middle and distal phalanx of the right index finger. There is a small fracture of the tip of the middle finger.. PG Care Time/CCT Total # of Minutes Spent Total Time Spent with Patient: Total time spent is greater than 50% in coordination of care (as documented) at patient's floor/unit and/or counseling patient: Coding Level of Care Code 59101 IN/OBS CONSULT LVL 4,60M (57 - DECISION FOR SURGERY) Diagnoses Laceration of right hand S61.411A
[2024-03-23] MEDS ORDERED: PROPOFOL IV EMULSION 10 MG/ML 20 ML VIAL IV ONE (21:32)
[2024-03-23] MEDS ORDERED: SUCCINYLCHOLINE CHLORIDE 20 MG/ML 10 ML VIAL IV ONE (21:32)
[2024-03-23] MEDS ORDERED: ONDANSETRON INJ 2 MG/ML 2 ML VIAL ONE (21:32)
[2024-03-23] MEDS ORDERED: DEXAMETHASONE SOD INJ 4 MG/ML VIAL ONE (21:32)
[2024-03-23] MEDS ORDERED: fentaNYL citrate PF 100 MCG/2 ML VIAL ONE (21:32)
[2024-03-23] MEDS ORDERED: MIDAZOLAM HCL 1 MG/ML 2ML VIAL ONE (21:32)
[2024-03-23] MEDS ORDERED: KETOROLAC 30 MG/ML VIAL ONE (21:38)
[2024-03-23] MEDS ORDERED: ONDANSETRON INJ 2 MG/ML 2 ML VIAL IV PRN (21:43)
[2024-03-23] MEDS ORDERED: ATROPINE SULFATE 0.1 MG/ML 10ML SYR IV PRN (21:43)
[2024-03-23] MEDS ORDERED: PROMETHAZINE HCL 6.25 MG in SODIUM CHLORIDE 0.9% 50 ML IV PRN (21:43)
[2024-03-23] MEDS ORDERED: fentaNYL citrate PF 100 MCG/2 ML VIAL IV PRN (21:43)
[2024-03-23] MEDS ORDERED: ePHEDrine sulfate 50 MG/ML AMP IV PRN (21:43)
[2024-03-23] MEDS ORDERED: HYDROmorphone INJ 2 MG/ML SYR/VIAL IV PRN (21:43)
--- NOTE | 2024-03-23 21:48 | Anesthesiology Consultation ---
Date of Service March 23, 2024 Assessment & Plan (1) Encounter for pre-operative examination: Chart Review Chart Review: Acceptable Risk for Surgery and Patient NOT seen in Pre Admission Testing Consults Requested none History Surgery Operation Date: 03/23/24 22:15 Proposed Procedures p Amputation Toe - Cristofer Benoit DO Height/Weight Height: 5 ft 7 in Weight: 75.7 kg Allergies Allergy/AdvReac Type Severity Reaction Status Date / Time lisinopril Allergy Severe PALPATATIONS Verified 06/14/23 09:50 & SWEATING, DISORIENTATION Medications Home Medications Medication Instructions Recorded Confirmed Last Taken amlodipine 10 mg tablet 10 mg PO QAM 11/14/18 06/14/23 02/04/20 aspirin 81 mg tablet,delayed 81 mg PO QAM 05/23/19 06/14/23 02/03/20 release (Aspir-) fluticasone furoate 27.5 2 spray intranasal BID PRN Nasal 05/23/19 06/14/23 02/03/20 mcg/actuation nasal Congestion spray,suspension (Flonase Sensimist) tizanidine 4 mg tablet 4 mg PO BID PRN muscle spasticity 01/20/21 06/14/23 Unknown #60 tabs bupropion HCl (smoking deter) 150 150 mg PO BID #60 tabs 09/01/22 06/14/23 Unknown mg tablet,12 hr sustained-release(smoking deterrent) rosuvastatin 20 mg tablet (Crestor) 20 mg PO DAILY 09/01/22 06/14/23 Unknown umeclidinium 62.5 mcg-vilanterol 1 inh inhalation DAILY #60 ea 09/01/22 06/14/23 Unknown 25 mcg/actuation powdr for inhalation (Anoro Ellipta) albuterol sulfate 90 mcg/actuation 2 puff inhalation Q6H PRN 06/22/23 06/22/23 Unknown aerosol inhaler shortness of breath or wheezing #8.5 grams Past Medical History Medical History (Updated 03/23/24 @ 21:48 by Atif Hampton MD) Current smoker Adenocarcinoma of lung COPD with emphysema PVD (peripheral vascular disease) Chronic back pain "PINCHED NERVES ALL OVER" Hx of gout Arthritis Peripheral neuropathy PVD (peripheral vascular disease) CAD (coronary artery disease) [facility] ? NAME Irregular heart beat Hypertension Hyperlipidemia Seasonal allergies Liver nodule PT DENIED LIVER PROBLEMS Mood disorder Past Family History Family History Grandmother (Paternal) Family history of diabetes mellitus Other No pertinent family history in first degree relatives Past Surgical History Surgical History History of anesthesia reaction SLOW TO WAKE UP History of tooth extraction H/O vascular surgery 3 TOTAL STENTS IN LEGS Social History Smoking Status: Current every day smoker tobacco type: cigarettes Do You Dip or Chew Tobacco: No Hx Alcohol Use: No substance use type: does not use Physical Exam Vital Signs Last Vital Signs Temp 36.8 C 03/23/24 19:54 Pulse 88 03/23/24 21:06 Resp 22 03/23/24 21:06 BP 128/58 L 03/23/24 21:06 Pulse Ox 100 03/23/24 21:06 O2 Del Method Room Air 03/23/24 21:06 Testing Laboratory Results 03/23/24 20:17 03/23/24 20:17 Electrocardiogram Date: 04/07/23 Findings: + NSR @ HR 90. LAD. Chest X-Ray XR chest 2V PA/lateral CLINICAL HISTORY: R06.00 TECHNIQUE: 2 views of the chest were obtained. Comparison: Comparison is made to chest radiograph 10/25/2020 FINDINGS: No lines and tubes are seen. The cardiomediastinal silhouette is normal. Right lower lung volume loss and diaphragmatic elevation is seen. No evidence of pleural effusion or pneumothorax. IMPRESSION: There is wide loss of the right lower lobe. No pneumonia is definitely seen. Echocardiogram Normal EF. Normal LV function.
--- NOTE | 2024-03-23 22:35 | XRay Report ---
Exam(s): XR RIGHT HAND, 3 views EXAM: XR Right Hand Complete, 3 or More Views CLINICAL HISTORY: Table saw injury to finger. TECHNIQUE: Frontal, lateral and oblique views of the right hand. COMPARISON: No relevant prior studies available. FINDINGS: Bones/joints: Comminuted severely displaced fractures of the second proximal, middle and distal phalanges. Comminuted moderately displaced fracture of the tuft of the distal third phalanx. Osseous densities of the soft tissues of the thumb could are present foreign bodies. No dislocation. Soft tissues: Extensive lacerations to the second and to lesser degree third fingers. There is also nonspecific soft tissue swelling throughout the remaining fingers and hand. IMPRESSION: 1. Comminuted severely displaced fractures of the second proximal, middle and distal phalanges. 2. Comminuted moderately displaced fracture of the tuft of the distal third phalanx. 3. Extensive lacerations to the second and to lesser degree third fingers. 4. Osseous densities of the soft tissues of the thumb could are present foreign bodies. Electronically signed by: Sia Normna MD 03/23/24 22:34 PM
[2024-03-23] MEDS ORDERED: HYDROmorphone INJ 1 MG/ML SYRINGE ONE (22:37)
[2024-03-23] MEDS ORDERED: ePHEDrine sulfate 50 MG/5 ML SYR ONE (23:24)
[2024-03-23] MEDS: BUPIVACAINE 0.5 % 5 MG/1 ML MPF 30ML VIAL ONE (23:30)
--- NOTE | 2024-03-23 23:51 | Operative Report ---
PG Post Operative Report Pre & Post Diagnosis Operation Date: 03/23/24 22:15 Pre-Op Diagnosis: Tablesaw injury to right hand Post-Op Diagnosis: Tablesaw injury to right hand I identified the patient and participated in the time-out.: Yes Procedure Operation Date: 03/23/24 22:15 Actual Procedures p Irrigation and Debridement and closure of right thumb Irrigation debridement and closure of right middle finger Irrigation and debridement with amputation of right index finger - Cristofer Benoit DO Surgeon Cristofer Benoit DO Tunnel [employer] Firer None Estimated Blood Loss 5 Findings Consistent with Post-Op Diagnosis Specimens None Description of Procedure On March 23, 2024 Kill[facility] was brought from the emergency room to the preoperative holding area. The operative extremity was identified and signed. He was given a preoperative antibiotic. He was taken back to the operative room and laid on table supine position. He was put under general anesthesia. The right hand was then prepped and draped sterile fashion. A timeout was done. The patient and the operative extremity was properly identified. The thumb was attended to first. 500 cc of normal saline were used to irrigate the large/serration on the thumb. It was a 6 cm laceration that went from the tip of the thumb down across the flexor crease. Time was spent irrigating the wound and debriding any necrotic appearing tissue. The bony structure was intact. The wound was then closed with 3-0 nylon suture. Attention was then turned to the right middle finger. There was a long laceration from the fingertip down through the flexor crease. There was a large macerated flap of skin as well. This flap was pulled back. The finger was irrigated with 500 cc of normal saline solution by bulb syringe. A necrotic appearing tissue was debrided off. A small piece of bone was debrided out. The remainder the fingers seem to be grossly intact. The skin was then closed with 3-0 nylon suture. Attention was then turned to the right index finger. There was lacerations along both the volar and dorsal aspects of the index finger from the PIP joint out through the tip of the finger. There was a complete split of the bone. The bone was splintered. The flexor tendon and the extensor tendons had both been torn. At this point I did not feel there was enough to save of the finger. The skin was cut and the center around the middle phalanx. The splintered bone of the middle and distal phalanx were then removed. The wound was then irrigated with 500 cc normal saline solution. Any necrotic appearing tissue was debrided. The skin was then closed over the end of the proximal phalanx in a [place] pattern. Sutures were also placed more proximally on each side from the tablesaw wounds. The tourniquet was deflated. A digital block was then done of the 3 fingers. He was then placed in a soft dressing. He was then extubated and transferred to a [facility]. He was taken to the postanesthesia care unit in stable condition. He tolerated the procedure well. I attest to the content of the Intraoperative Record and any orders documented therein. Any exceptions are noted below.
--- NOTE | 2024-03-24 00:13 | Anesthesiology Progress Note ---
Date of Service March 24, 2024 Anesthesia Post Procedure Vital Signs Vital Signs: Temp Pulse Pulse Pulse Resp BP BP 03/24/24 00:10 91 H 20 143/66 H 03/24/24 00:00 96 H 16 145/69 H 03/23/24 23:53 36.2 C L 93 H 12 137/67 03/23/24 21:06 88 22 128/58 L 03/23/24 20:04 135 H 03/23/24 19:54 36.8 C 88 22 135/65 Pulse Ox O2 Del Method O2 Flow Rate 03/24/24 00:10 98 Room Air 0 03/24/24 00:00 100 Oxymask 8 03/23/24 23:53 98 Oxymask 8 03/23/24 21:06 100 Room Air 03/23/24 20:04 03/23/24 19:54 100 Room Air Pain Intensity Right Hand: Pain Intensity: 9 Transfer of Care Handoff Completed per policy Notes Mental Status: alert / awake / arousable and participated in evaluation Patient Amnestic to Procedure: Yes Nausea / Vomiting: adequately controlled Pain: adequately controlled Airway Patency, RR, SpO2: stable & adequate BP & HR: stable & adequate Hydration State: stable & adequate Anesthetic Complications: no major complications apparent and Pt Satisfied with anesthetic care
[2024-03-24] MEDS ORDERED: ALBUTEROL HFA 8 GM INHALER INH PRN (00:51)
[2024-03-24] MEDS: oxyCODONE/ACETAMINOPHEN 5mg/325mg TAB PO PRN (01:46)
[2024-03-24] MEDS: ACETAMINOPHEN 1,000 MG/100 ML VIAL IV STA (02:02)
[2024-03-24 03:44] VITALS: RESP 16; TEMP 97.9; O2SAT 97
[2024-03-24] MEDS: ceFAZolin 2000MG 2,000 MG/15 ML SYR IV SCH (05:18)
[2024-03-24] MEDS: KETOROLAC 30 MG/ML VIAL IV SCH (05:19)
[2024-03-24 07:29] VITALS: PULSE 99
[2024-03-24] MEDS: buPROPion SR 150 MG TABCR PO SCH (07:43)
[2024-03-24] MEDS: UMECLIDINIUM/VILANTEROL 62.5/25MCG 7 PUFFS/INHALER INH SCH (07:44)
[2024-03-24] MEDS: amLODIPine BESYLATE 5 MG TAB PO SCH (07:44)
[2024-03-24] MEDS: ROSUVASTATIN CALCIUM 20 MG TAB PO SCH (07:44)
[2024-03-24] MEDS: ASPIRIN 81 MG ECTAB PO SCH (07:45)
[2024-03-24 11:43] VITALS: BP 123/66
--- NOTE | 2024-03-24 13:00 | Orthopedic Progress Note ---
Date of Service March 24, 2024 Assessment & Plan (1) Contact with powered saw as cause of accidental injury: Overall he is doing as well as expected. Is not having too much pain in the right hand. He can be discharged to home today. I will keep him on oral cefadroxil for antibiotic coverage. He can follow-up with orthopedics on Monday for a dressing change. Subjective Killian was seen and examined at bedside this morning. Overall he is doing fairly well. He is not having too much pain in the right hand. He has no complaints.. Review of Systems All systems reviewed & are unremarkable except as noted in HPI & below. Physical Exam On physical exam, the dressing is clean and dry.. Results & Data Results & Data Laboratory Results . Diagnostic Findings . PG Care Time/CCT Total # of Minutes Spent Total Time Spent with Patient: Total time spent is greater than 50% in coordination of care (as documented) at patient's floor/unit and/or counseling patient: Coding Level of Care Code 37773 Post Operative Follow-Up Diagnoses Contact with powered saw as cause of accidental injury W31.2XXA
--- NOTE | 2024-03-24 13:02 | Discharge Summary ---
Date of Service March 24, 2024 Admission Exam (Per Admitting) On physical exam of the right hand, the index finger has a longitudinal traumatic split from the PIP joint through the tip of the index finger. There is also a small injury to the tip of the right middle finger.. Principal Diagnosis Same as "Discharge Diagnosis" noted below under Discharge Instructions. Discharge Exam On physical exam, the dressing is clean and dry.. Discharge Data Procedures Performed Operation Date: 03/23/24 22:15 Actual Procedures p with Partial Amputatuion of Right Index Finger(Right) - Cristofer Benoit DO s Irrigation and Debridement(Right) - Cristofer Benoit DO Hospital Course (1) Contact with powered saw as cause of accidental injury: On March 23, 2024 Killian came to the emergency room with a tablesaw injury to his right hand. There was significant injury to the index finger. He was taken immediately to the operating room. He underwent a partial amputation of the right index finger and sutures in the middle finger and thumb. He was then placed in a soft dressing and transferred to the general orthopedic floors. He was started on antibiotic. On postop day #1, his vital signs were stable and his pain was well-controlled. He was not having too much pain in the hand. He was finishing up with his antibiotics. He was then discharged to home on oral antibiotics and instructions to follow-up with orthopedics on Monday for radha ssing change. PG Care Time/CCT Total # of Minutes Spent Total Time Spent with Patient: Total time spent is greater than 50% in coordination of care (as documented) at patient's floor/unit and/or counseling patient: Discharge Plan Discharge Items Patient Disposition: Home - Self-Care Reason For Visit: TABLESAW INJURY TO RIGHT HAND Discharge Diagnosis: Tablesaw injury to right hand Activity: Per Instructions section Non-emergency contact: Surgeon Call non-emergency contact if: your wound has increased redness and your wound has increased drainage Follow-up/Referrals: Trinidad Olivarez MD [Primary Care Provider] - Diet: Regular Addtl Attending Provider Instructions: ORTHOPEDIC INSTRUCTIONS Activity Recommendations: Limit use of the right hand Medications: Take narcotic pain medications as needed for pain Take cefadroxil twice a day for 2 weeks to help prevent infection. Dressing Care: Leave the dressing clean and dry until follow-up on Monday Diet: You may resume your previous diet. Things To Watch For: 1. Drainage from the incision site that occurs more than one week after your surgery. 2. Increased redness at the incision site. 3. Fever above 102 degrees Fahrenheit. 4. Unusual chest pain or shortness of breath. 5. Call [facility] at with any of the above problems Follow-Up Visit: Follow-up with Dr. Benoit office on Monday. We will remove the dressing and check the quality of the skin. Please call the office to set up an appointment for a time that works for you. Pending Studies at Discharge: No Stand-Alone Forms: My [facility], Smoking Cessation Medications and DC Order Prescriptions: New oxycodone 5 mg tablet 5 mg PO Q6H PRN (Reason: pain) Qty: 30 0RF cefadroxil 500 mg capsule 500 mg PO BID 10 Days Qty: 20 0RF Continued rosuvastatin [Crestor] 20 mg tablet 20 mg PO DAILY bupropion HCl (smoking deter) 150 mg tablet extended release 12 hr 150 mg PO BID Qty: 60 3RF Rx Instructions: Take 1 Tab Po daily for 7 days then 1 tab po BID Anoro Ellipta 62.5-25 mcg/actuation blister with device 1 inh inhalation DAILY Qty: 60 4RF albuterol sulfate 90 mcg/actuation HFA aerosol inhaler 2 puff inhalation Q6H PRN (Reason: shortness of breath or wheezing) Qty: 8.5 4RF tizanidine 4 mg tablet 4 mg PO BID PRN (Reason: muscle spasticity) Qty: 60 2RF amlodipine 10 mg Tablet 10 mg PO QAM aspirin [Aspir-81] 81 mg Tablet,Delayed Release (Dr/Ec) 81 mg PO QAM Flonase Sensimist 27.5 mcg/actuation [place],Suspension 2 spray INTRANASAL BID PRN (Reason: Nasal Congestion) Discharge Orders: Discharge Order (Routine); Ordered 03/24/24 Ordered By: Cristofer Johnson/Other Patient Handouts: DVT Post Op Prevention Admission Data Admit Date/Time: 03/23/24 23:55 Attending Provider: Cristofer Benoit Admit Provider: Cy,Cristofer A Primary Care Provider: Trinidad Olivarez Other Interventions: Discharge Summary Assessment (RN) Last Done: 03/24/24 11:39
--- OUTSIDE RECORDS SUMMARY | 2024-03-25 04:27 | External Medical Summary | Continuity of Care Document ---
Author Name Unknown Organization [facility] [address] Address [address] [place], [place] [id number] Care Team Providers Care Drum Builder Name Role Phone Trinidad Olivarez Primary Care Physician [phone] Encounter [facility] [id number] Date(s): 03/06/24 - 03/06/24 [facility] [address] [facility] [address], [facility] [address] [place], [place] [phone] Encounter Diagnosis Other fatigue(Final) - Unspecified abdominal pain(Final) - Unspecified mononeuropathy of unspecified lower limb(Final) - Encounter for general adult medical examination without abnormal findings(Final) - Discharge Disposition: Home or Self Care Attending Physician: MD Olivarez [place] Referring Physician: MD Sher, Trinidad Allergies, Adverse Reactions, Alerts Substance Criticality Severity Reaction Reaction Severity Status lisinopril difficulty fidelina thing Anxiety Confusion Active Immunizations Given and Recorded Vaccine Date Status Refusal Reason pneumococcal 23-valent vaccine 06/10/21 Recorded tetanus/diphtheria/pertuss, acel (Tdap) 04/14/15 R ecorded Medications Albuterol (Eqv-ProAir HFA) 90 mcg/inh inhalation aerosol Start: 02/29/24 2:10:00 PM EST, 1 puff, inhaled, q6h, Disp# 18 g, Refills: 1, Pharmacy: [id number] Start Date: 02/29/24 Status: Ordered aspirin 81 mg oral tablet, chewable Start: 12/28/20 8:34:00 AM EDT, 1 tab, PO, Daily Start Date: 12/28/20 Status: Ordered Combivent Respimat 20 mcg-100 mcg/inh inhalation aerosol INHALE 1 PUFF BY MOUTH AND INTO THE LUNGS EVERY 4 HOURS NEEDED FOR COUGH OR WHEEZE, DYSPNEA Start Date: 04/07/23 Status: Ordered fluticasone 27.5 mcg/inh nasal spray Start: 12/06/23 5:03:00 PM EDT, 2 spray, each nostril, Daily, Disp# 10 g, Refills: 3, PRN: allergy symptoms, Pharmacy: [id number] Start Date: 12/06/23 Status: Ordered ibuprofen 800 mg oral tablet Start: 02/14/24 8:03:00 AM EDT, 1 tab, PO, tid, Disp# 21 tab, Refills: 0, PRN: as needed for pain, Pharmacy: [id number] Start Date: 02/14/24 Stop Date: 02/21/24 Status: Ordered Lyrica 25 mg oral capsule Start: 02/29/24 2:05:00 PM EST, 1 cap, PO, Daily, Disp# 30 cap, Refills: 1, Pharmacy: [id number] Start Date: 02/29/24 Stop Date: 04/29/24 Status: Ordered Norvasc 10 mg oral tablet Start: 11/29/23 1:13:00 PM EDT, 1 tab, PO, Daily, Disp# 90 tab, Refills: 1, Pharmacy: [facility] Start Date: 11/29/23 Status: Ordered omeprazole 10 mg oral delayed release capsule Start: 11/29/23 1:13:00 PM EDT, 20 mg =, PO, Daily, Disp# 90 cap, Refills: 1, Pharmacy: [facility] Start Date: 11/29/23 Status: Ordered rosuvastatin 40 mg oral tablet Start: 11/29/23 1:13:00 PM EDT, 1 tab, PO, Daily, Disp# 90 tab, Refills: 1, TAKE 1 TABLET BY MOUTH EVERY EVENING, Pharmacy: [facility] Start Date: 11/29/23 Status: Ordered sildenafil 100 mg oral tablet Start: 11/29/23 1:13:00 PM EDT, 1 tab, PO, Daily, Disp# 20 tab, Refills: 1, PRN: if needed for ERECTILE DYSFUNCTION, Pharmacy: [facility] Start Date: 11/29/23 Status: Ordered tiZANidine 4 mg oral tablet Start: 11/29/23 1:13:00 PM EDT, 1 tab, PO, q8h, Disp# 270 tab, Refills: 1, Pharmacy: [facility] Start Date: 11/29/23 Status: Ordered Tylenol 500 mg oral tablet Start: 02/29/24 2:09:00 PM EST, 2 tab, PO, q8h, Disp# 100 tab, Refills: 0, PRN: pain - mild (1-3), Pharmacy: [id number] Start Date: 02/29/24 Stop Date: 03/14/24 Status: Ordered Problem List Condition Confirmation Course Effective Dates Status H ealth Status Informant Adenocarcinoma of lung Confirmed Active COPD type B Confirmed Active Erectile dysfunction Confirmed Active Hypertension Confirmed Active (atherosclerosis) Confirmed Active Lumbar radiculopathy, right Confirmed Active Mixed hyperlipidemia Confirmed Active Lumbar spinal stenosis Confirmed Active Tobacco user Confirmed Active Procedures Procedure Date Related Diagnosis Body Site Status CT of abdomen and pelvis wit hout contrast 1 08/30/22 Completed Chest x-ray 2 04/12/22 Completed Chest x-ray 3 04/05/22 Completed Chest X-ray 4 03/28/22 Completed Ultrasonic guidance for thor acentesis 5 03/28/22 Completed Chest X-ray 6 03/21/22 Completed Chest x-ray 7 03/07/22 Completed Chest X-ray 8 03/06/22 Completed Chest X-ray 9 03/05/22 Completed Lobectomy of lung 03/05/22 Complet ed Chest X-ray 10 03/04/[address] guided biopsy of right lung 11 03/04/22 Completed Chest X-ray 12 02/18/[address] of abdomen and pelvis wit h contrast 13 02/08/22 Completed PET scan 14 01/12/22 Completed Radioisotope myocardial perf usion stress study 15 11/30/[address] of neck and thorax 16 11/08/21 Completed EXTRACRANIAL BILAT STUDY 17 10/27/21 Completed MRI of lumbar spine without contrast 18 04/28/21 Completed Lower limb angiogram 2014 C ompleted Chest X-ray 20 Completed 11. No acute abnormality, in particular no evidence of bowel obstruction. The appendix is normal. 2. Aortobiiliac stent graft repair. This is unchanged from prior exam within limits of a noncontrast exam. 3. Small right pleural effusion 4. Nonobstructive nephrolithiasis without evidence of hydronephrosis or hydroureter 5. Additional findings as above. 2No active lung disease. Stable right basilar atelectasis. 3The right hemidiaphragm remains elevated. No focal acute pulmonary infiltrate identified. 4Right basilar opacity with small to moderate size right pleural effusion, decreased as compared to prior study. No definable pneumothorax 5Ultrasound-guided right-sided therapeutic thoracentesis. A total of 1.4 L was drained. Post procedure chest x-ray demonstrated no evidence for pneumothorax and near complete resolution of pleural effusion. 6Moderate-sized right-sided pleural effusion with right basilar atelectasis 7no appreciable pneumothorax 8no appreciable pneumothorax 9No appreciable pneumothorax 10Bilateral perihilar atelectasis. No pneumothorax 11Successful CT guided right upper lobe nodule preop dye injection. 12Soft tissue nodule overlying the right upper lobe, increased in size since prior, worrisome for neoplasm 13Mild hepatomegaly. Calcified granuloma spllen compatible with healed granulomatous disease. Atherosclerotic vascular disease with aorto biliac bypass graft. 14The solid nodule at the periphery of the cyst seen in the right upper lobe is mildly glucose avid and is concerning for malignancy. Low-grade adenocarcinomas and bronchoalveolar carcinomas can present with this pattern. Tissue sampling would be helpful. No PET evidence of locoregional shayy or distant metastatic disease. Probable reactive lymph nodes in the right axillary region. Focal inflammation in the off tissues of right lower cheek. Please correlate clinically. Esophageal uptake could be physiologic although a similar pattern can be seen in patients with esophagitis or GE reflux disease. Given the increased uptake at the GE junction, please correlate clinically and if warranted an endoscopy would be helpful 151. Myocardial perfusion appears probably normal following pharmacologic stress with Regadenoson 2. Changes typical of diaphragmatic attenuation along the inferoseptal wall confirmed on the attenuation corrected images 3. Left ventricular systolic function is normal following Lexiscan Regadenoson stress 4. The ejection fractions are normal 161. severe centrilobular emphysema. right upper lobe cyst with interval development of solid nodule at the periphery of the cyst measuring 1 x 0.7 x 0.8 cm. Given history of emphysema and smoking, this is suspicious for primary lung cancer. Consider further evaluation with PET/CT. 2. Severe artherosclerotic disease of coronary arteries. This is advanced for patient's age. Cardiac consultation is recommended and possible further evaluation with coronary calcium scoring. 171. Flow velocities suggest 50-69% right ICA stenosis and likely towards the lower end of that range. 2. less than 50% left ICA stenosis 3. antegrade flow vertebral arteries 181. multilevel disc and spondylotic change results in severe righ-sided neuroforaminal stenosis at the L4-L5 and L5-S1 with severe left sided neuroforaminal stenosis at L3-L4 and moderate to above-correlate for corresponding symptoms 2. No acute fracture, dislocation or gross compression deformity of the lumbar spine identified 19multiple stents, 2 in right and 1 in left 20There is wide loss of the right lower lobe. No pneumonia is definitely seen. Results Laboratory List Name Date Complete Blood Count w Differential (CBC ,DIFFH) 03/06/24 Comprehensive Metabolic Panel (COMP META B PANEL) 03/06/24 Lipid Profile (LIPOPROTEINS) 03/06/24 Thyroid Stimulating Hormone (TSH) Most recent to oldest [Reference Range]: 1 eGFR CKD-EPI [>60 mL/min/1.73 m2] >90 mL /min/1.73 m2 1 (03/06/24 12:19 PM) Non-HDL 67 mg/dL 2 (03/06/24 12:19 PM) Estimated CrCl 107.36 mL/min (03/06/24 12:55 PM) MPV [9.0-12.2 fL] 10.0 fL (03/06/24 12:19 PM) Immature Gran% 0.8 % (03/06/24 12:19 PM) Neut% 53.5 % (03/06/24 12:19 PM) Lymph% 31.3 % (03/06/24 12:19 PM) [place]% 10.8 % (03/06/24 12:19 PM) Baso% 1.3 % (03/06/24 12:19 PM) Eos% 2.3 % (03/06/24 12:19 PM) Immat Gran, Abs [0-0.4 K/uL] 0.04 K/uL (03/06/24 12:19 PM) Neut, Abs [2.0-7.7 K/uL] 2.78 K/uL (03/06/24 12:19 PM) Lymph, Abs [1.0-3.4 K/uL] 1.63 K/uL (03/06/24 12:19 PM) [place], Abs [0-1.0 K/uL] 0.56 K/uL (03/06/24 PM) Baso, Abs [0-0.1 K/uL] 0.07 K/uL (03/06/24 PM) Eos, Abs [0-0.5 K/uL] 0.12 K/uL (03/06/24 PM) Type of Diff: AUTO *Unknown* (03/06/24 PM) RDW [11.5-14.2 %] 13.1 % (03/06/24 PM) Anion Gap [5-14 mmol/L] 8 mmol/L (03/06/24 PM) Alb [3.5-5.0 g/dL] 4.1 g/dL (03/06/24 PM) Alk Phos [38-126 unit/L] 59 unit/L (03/06/24 PM) ALT [<50 unit/L] 16 unit/L (03/06/24 PM) AST [15-46 unit/L] 21 unit/L (03/06/24 PM) BUN [7-20 mg/dL] 13 mg/dL (03/06/24 PM) Ca [8.4-10.2 mg/dL] 8.8 mg/dL (03/06/24 PM) Chol/HDL 2 (03/06/24 PM) Chol [125-200 mg/dL] 126 mg/dL (03/06/24 PM) Cl- [96-107 mmol/L] 105 mmol/L (03/06/24 PM) HCO3 [22-30 mmol/L] 26 mmol/L (03/06/24 PM) Cret [0.70-1.30 mg/dL] 0.78 mg/dL (03/06/24 PM) Glu [74-106 mg/dL] 84 mg/dL (03/06/24 PM) Hct [39-48 %] 41.5 % (03/06/24 PM) HDL [>35 mg/dL] 59 mg/dL (03/06/24 PM) Hgb [13.0-17.0 g/dL] 14.0 g/dL (03/06/24: PM) K [3.5-5.1 mmol/L] 4.2 mmol/L (03/06/24 PM) LDL Chol, Calculated [50-130 mg/dL] 45 m g/dL *LOW* (03/06/24: PM) MCH [28-33 pg] 29.5 pg (03/06/24 PM) MCHC [32-36 g/dL] 33.7 g/dL (03/06/24: PM) MCV [81-96 fL] 87.6 fL (03/06/24 PM) Na [137-145 mmol/L] 139 mmol/L (03/06/24 PM) Plts [150-350 K/uL] 358 K/uL *HI* (03/06/24: PM) RBC [4.40-5.60 M/uL] 4.74 M/uL (03/06/24: PM) T Bili [0.2-1.3 mg/dL] 0.9 mg/dL (03/06/24: PM) Prot [6.3-8.2 g/dL] 7.2 g/dL (03/06/24: PM) TG [<200 mg/dL] 110 mg/dL (03/06/24: PM) TSH [0.47-4.68 uIU/mL] 1.10 uIU/mL 3 (03/06/24: PM) WBC [4.0-10.4 K/uL] 5.20 K/uL (03/06/24: PM) 1Result Comment: Testing Performed By: Dept of Pathology [facility] [address], [address], [place] [address] 2Result Comment: Testing Performed By: Dept of Pathology [facility] [address], [address], [place] [address] 3Result Comment: Testing Performed By: Dept of Pathology [facility] [address], [address], [place] [address] Social History Social History Type Response Tobacco Current every day sm oker Smoking Status Current every day li ght smoker Sex Male Sex Representation Male (finding) Implantable Device List Procedure Provider Procedure Date Device Type Site Unknown Unknown 12/22/20 Unknown Unknown Device Identifier Serial Number Lot or Batch Number Manufacturing Date Expiration Date Distinct Identification Code MRI Safety Implantable Status Assigning Authority Unknown Unknown [id number] Unknown 02/14/25 Unknown Unknown Active Mis tavares Patient Care team information Care Team Personnel Name: Lindsey Ashley Kayla Position: Pharmacist Member Role: Pharmacy - Lifetime Name: PANDA Trevino Terra L Position: Nurse Pract - Vascular Surg Member Role: Lifetime Relationship Address: [address] [facility] [place] [address] [place] Name: SHREYA Warren Lynn Position: Physician Cement Gun Operator Exempt - Vasc Surg Member Role: Lifetime Relationship Address: [address] [place] [id number] Name: MD Sher, Trinidad Position: Physician - Family Med Member Role: Primary Care Provider Address: [address] [place] [id number] [place] Care Team Related Persons Name: TENISHA OLSON
--- OUTSIDE RECORDS SUMMARY | 2024-03-25 04:27 | External Medical Summary | Continuity of Care Document ---
Author Name Unknown Organization [address] [phone] Care Team Providers Care Venetian Blind Assembler Name Role Phone Trinidad Olivarez Primary Care Physician [phone] Encounter [facility] [id number] Date(s): 02/29/24 - 02/29/[address] [address] [phone] Encounter Diagnosis Body mass index [BMI] 25.0-25.9, adult(Discharge Diagnosis) - 02/29/24 Annual physical exam(Discharge Diagnosis) - 02/29/24 Abdominal pain(Discharge Diagnosis) - 02/29/24 Neuropathy of leg(Discharge Diagnosis) - 02/29/24 Fatigue(Discharge Diagnosis) - 02/29/24 Tobacco user(Discharge Diagnosis) - 03/03/24 Discharge Disposition: Home or Self Care Attending Physician: MD Olivarez [place] Referring Physician: MD Olivarez [place] Allergies, Adverse Reactions, Alerts Substance Criticality Severity Reaction Reaction Severity Status lisinopril difficulty fidelina thing Anxiety Confusion Active Assessment and Plan Extracted from: Title:Office Visit Note Author:MD Sher, [facility] Date:02/29/24 1.Abdominal pain -US of the abdomen. -Continue Tylenol as needed. 2.Neuropathy of leg Lumbar radiculopathy, Lumbar spinal stenosis. -Lyrica 25 MG ONCE A DAY. Advised to follow up with ortho. He was last seen by ortho on July 17, 2023. Reviewed ortho office notes. 3.Fatigue -Check TSH -Check CBC -increase oral fluid intake 4.Tobacco user declined treatment. follow up 4 for annual physical. Advised to get his blood works doneprior to the next visit. CBC, CMP, LIPID PANEL. Immunizations Given and Recorded Vaccine Date Status Refusal Reason pneumococcal 23-valent vaccine 06/10/21 Recorded tetanus/diphtheria/pertuss, acel (Tdap) 04/14/15 R ecorded Medications Albuterol (Eqv-ProAir HFA) 90 mcg/inh inhalation aerosol Start: 02/29/24 2:10:00 PM EST, 1 puff, inhaled, q6h, Disp# 18 g, Refills: 1, Pharmacy: [id number] Start Date: 02/29/24 Status: Ordered [...] g, Refills: 3, PRN: allergy symptoms, Pharmacy: [id number] Start Date: 12/06/23 Status: Ordered ibuprofen 800 mg oral tablet Start: 02/14/24 8:03:00 AM EDT, 1 tab, PO, tid, Disp# 21 tab, Refills: 0, PRN: as needed for pain, Pharmacy: [id number] Start Date: 02/14/24 Stop Date: 02/21/24 Status: Ordered Lyrica 25 mg oral capsule Start: 02/29/24 2:05:00 PM EST, 1 cap, PO, Daily, Disp# 30 cap, Refills: 1, Pharmacy: [id number] Start Date: 02/29/24 Stop Date: 04/29/24 Status: Ordered Norvasc 10 mg oral tablet Start: 11/29/23 1:13:00 PM EDT, 1 tab, PO, Daily, Disp# 90 tab, Refills: 1, Pharmacy: [id number] Start Date: 11/29/23 Status: Ordered omeprazole 10 mg oral delayed release capsule Start: 11/29/23 1:13:00 PM EDT, 20 mg =, PO, Daily, Disp# 90 cap, Refills: 1, Pharmacy: [facility] Start Date: 11/29/23 Status: Ordered rosuvastatin 40 mg oral tablet Start: 11/29/23 1:13:00 PM EDT, 1 tab, PO, Daily, Disp# 90 tab, Refills: 1, TAKE 1 TABLET BY MOUTH EVERY EVENING, Pharmacy: [id number] Start Date: 11/29/23 Status: Ordered sildenafil 100 mg oral tablet Start: 11/29/23 1:13:00 PM EDT, 1 tab, PO, Daily, Disp# 20 tab, Refills: 1, PRN: if needed for ERECTILE DYSFUNCTION, Pharmacy: [id number] Start Date: 11/29/23 Status: Ordered tiZANidine 4 mg oral tablet Start: 11/29/23 1:13:00 PM EDT, 1 tab, PO, q8h, Disp# 270 tab, Refills: 1, Pharmacy: [id number] Start Date: 11/29/23 Status: Ordered Tylenol 500 mg oral tablet Start: 02/29/24 2:09:00 PM EST, 2 tab, PO, q8h, Disp# 100 tab, Refills: 0, PRN: pain - mild (1-3), Pharmacy: [id number] Start Date: 02/29/24 Stop Date: 03/14/24 Status: Ordered Mental Status 02/29/24 Barriers to Learning one year None evide nt Mandatory Health Literacy Documentation Yes Health Literacy Communication Barriers N ever Primary Language Tristanian Problem List Condition Confirmation Course Effective Dates Status H ealth Status Informant Adenocarcinoma of lung Confirmed Active COPD type B Confirmed Active Erectile dysfunction Confirmed Active Hypertension Confirmed Active (atherosclerosis) Confirmed Active Lumbar radiculopathy, right Confirmed Active Mixed hyperlipidemia Confirmed Active Lumbar spinal stenosis Confirmed Active Tobacco user Confirmed Active Diagnosis Diagnosis Type Effective Dates Health Status Clinical Service Informant Body mass index [BMI] 25.0-25.9, adult Discharge Diagnosis 02/29/24 Non-Specified Fatigue Discharge Diagnosis 02/29/24 Non-Specified Abdominal pain Discharge Diagnosis 02/29/24 Non-Specified Neuropathy of leg Discharge Diagnosis 02/29/24 Non-Specified Annual physical exam Discharge Diagnosis 02/29/24 Non-Specified Tobacco user Discharge Diagnosis 03/03/24 Non-Specified Procedures Procedure Date Related Diagnosis Body Site [...] lower lobe. No pneumonia is definitely seen. Vital Signs Most recent to oldest [Reference Range]: 1 Height 172 cm (02/29/24 1:29 PM) Patient Weight 76.6 kg (02/29/24 1:29 PM) Body Mass Index 25.89 kg/m2 (02/29/24 1:29 PM) Temperature [36.5-37.9 DegC] 36.9 DegC (02/29/24 1:29 PM) Heart Rate 89 bpm (02/29/24 1:29 PM) Respiratory Rate 17 br/min (02/29/24 1:29 PM) Blood Pressure 132/64mmHg (02/29/24 1:29 PM) Cuff Pulse Pressure 68 mmHg (02/29/24 1:29 PM) Social History Social History Type Response Tobacco [...] Unknown 20L19 Unknown 02/14/25 Unknown Unknown Active Unk nown FCM Outpt Note * MD Sher, [place]: PERFORM Event Display: FCM Outpt Note Authored Date: Chief Complaint 3 Month Follow Up. CPE. Has C/O RUQ pain X 3 weeks. History of Present Illness 53-year-old male here todaycomplaining ofright upper quadrantabdominal pain started about 3 weeks ago. Patientdenies knowntrauma or injury other thanpossibly while he was working, he lifted somethingheavy moving it from 1 place to another.Pain described as sharp, stabbing painand sometimesfeels like it is spasming. Movement of thetrunkaggravates the pain. -Fatigue. It has been ongoing for a month now. Patient reported thathe has been working hard for the pastmonth. -Back pain neuropathy on both legsworse on the right side.. It has been constant. He has not seen by orthopedicsurgeonfor several months now. Patient reported that he is dependent to his father to drivehim to appointments. -Tobacco use disorder. Declinedtreatment. Deniesnausea or vomiting, deniesdiarrhea or constipation, denies blood in the urine or stool. Review of Systems see hpi Physical Exam Vitals & Measurements T:36.9C HR:89(Monitored) RR:17 BP:132/64 SpO2:98% HT:172cm WT:76.600kg(Dosing) WT:76.6kg BMI:25.89 PHQ2 Data(Data Documented on:02/29/2024 13:29) Emotional health assessment NEGATIVE General: alert and oriented, no acute distress Eye: PERRL, EOMI, normal conjunctiva HENT: normocephalic, TMs clear, normal hearing, moist oral mucosa, no pharyngeal erythema, no sinus tenderness Neck: supple, non-tender, no lymphadenopathy, no thyromegaly Resp: Lungs CTA, non-labored respirations, BS equal, symmetrical expansion CV: normal rate and rhythm, no murmur, no gallop GI: soft, tender right upper quadrant area, non-distended, normal bowel sounds, no organomegaly, + surgical scar : no CVA tenderness MS: normal ROM, normal strength, no tenderness, no swelling, no deformity, normal gait. no spinal tenderness. Integumentary: warm, dry, pink, no cyanosis, intact, moist, no pallor, no rash Neurologic: alert and oriented, normal sensory, normal motor, no focal deficits Psychiatric: appropriate mood and affect Assessment/Plan 1.Abdominal pain -US of the abdomen. -Continue Tylenol as needed. 2.Neuropathy of leg Lumbar radiculopathy, Lumbar spinal stenosis. -Lyrica 25 MG ONCE A DAY. Advised to follow up with ortho. He was last seen by ortho on July 17, 2023. Reviewed ortho office notes. 3.Fatigue -Check TSH -Check CBC -increase oral fluid intake 4.Tobacco user declined treatment. follow up Mar.20 for annual physical. Advised to get his blood works doneprior to the next visit.CBC, CMP, LIPID PANEL. Problem List/Past Medical History Ongoing Adenocarcinoma of lung (atherosclerosis) COPD type B Erectile dysfunction Hypertension Lumbar radiculopathy, right Lumbar spinal stenosis Mixed hyperlipidemia Tobacco user Procedure/Surgical History CT of abdomen and pelvis without contrast| Service Date: 08/30/2022hes x-ray| Service Date:04/12/2022 x-ray| Service Date: 04/05/2022Ultrasonic guidance for thoracentesis| ServiceDate: 03/28/2022 X-ray| Service Date: 03/28/2022 X-ray| Service Date: 03/21/2022 x-ray| Service Date: 11/21/2022Chest X-ray| Service Date: 03/06/2022Lobectomy of lung| Service Date: 03/05/2022hest X-ray| Service Date: 03/05/2022hest X-ray| Service Date: 03/04/2022T guided biopsy of right lung| Service Date: 03/04/2022hest X-ray| Service Date: 2CT of abdomen and pelvis with contrast| Service Date: 02/08/2022ET scan| Service Date: 2Radioisotope myocardial perfusion stress study| Service Date: 2CT of neck and thorax| Service Date: 11/08/2021EXTRACRANIAL BILAT STUDY| Service Date: 10/27/2021MRI of lumbar spine without contrast| Service Date: 04/28/2021Lower limb angiogram| Service Date: 2014ChestX-ray Medications acetaminophen(Tylenol 500 mg oral tablet), 1000 mg= 2 tab, PO, q8h, PRN albuterol(Albuterol (Eqv-ProAir HFA) 90 mcg/inh inhalation aerosol), 1 puff, inhaled, q6h, 1 refills albuterol-ipratropium(Combivent Respimat 20 mcg-100 mcg/inh inhalation aerosol) amLODIPine(Norvasc 10 mg oral tablet), 10 mg= 1 tab, PO, Daily, 1 refills aspirin(aspirin 81 mg oral tablet, chewable), 81 mg= 1 tab, PO, Daily fluticasone nasal(fluticasone 27.5 mcg/inh nasal spray), 55 mcg= 2 spray, each nostril, Daily, PRN,3 refills ibuprofen(ibuprofen 800 mg oral tablet), 800 mg= 1 tab, PO, tid, PRN omeprazole(omeprazole 10 mg oral delayed release capsule), 20 mg, PO, Daily, 1 refills pregabalin(Lyrica 25 mg oral capsule), 25 mg= 1 cap, PO, Daily, 1 refills rosuvastatin(rosuvastatin 40 mg oral tablet), 40 mg= 1 tab, PO, Daily, 1 refills sildenafil(sildenafil 100 mg oral tablet), 1 tab, PO, Daily, PRN, 1 refills tiZANidine(tiZANidine 4 mg oral tablet), 1 tab, PO, q8h, 1 refills Allergies lisinoprildifficulty breathing, Anxiety, Confusion Social History Smoking Status Current every day light smoker Alcohol Use:Current Type:Beer, Wine, Liquor Frequency:Daily Employment/School Description:semi retired Exercise Duration (average number of minutes):120 Times per week:5-6 times/week Self assessment:Good condition Home/Environment Lives with:Alone Nutrition/Health Diet description:high protein Type of diet:Regular Sexual Sexually active:Yes Substance Abuse Use:Current Type:Marijuana Frequency:1-2 times per month Tobacco Use:Current every day smoker Immunizations Vaccine Date Status pneumococcal 23-valent vaccine 06/10/2021 Recorded tetanus/diphtheria/pertuss, acel (Tdap) 04/14/2015 Recorded Recommendations Health Maintenance Pending(in the next year) OverDue Adult Influenza Vaccine due10/15/23and every 1year Due Adult COVID-19 Vaccination due03/02/24Unknown Frequency Adult Social Determinants of Health Screening due03/02/24Unknown Frequency Colorectal Cancer Screening due03/02/24Unknown Frequency Hepatitis C Screening due03/02/24One-time only Pneumococcal Vaccine Adults and Adolescents with Chronic Illness due03/02/24One-time only Shingles Vaccine due03/02/24One-time only Due In Future Body Mass Index not due until03/01/25and every 366day Satisfied(in the past 1 year) Satisfied Body Mass Index on02/29/24.Satisfied by WINTER Son Kirsten Electronic Signature on File Electronically Reviewed/Signed by: Trinidad Olivarez MD Author Signature Dt/Tm:03/02/2024 11:34 PM Department of Family Medicine [facility] Patient Care team information Care Team Personnel Name: Lindsey Ashley Kayla Position: Pharmacist Member Role: Pharmacy - Lifetime Name: PANDA Trevino Terra L Position: Nurse Pract - Vascular Surg Member Role: Lifetime Relationship Address: [address] [place] [address] [place] Name: SHREYA Warren Lynn Position: Physician Paper Mill Supervisor Exempt - Vasc Surg Member Role: Lifetime Relationship Address: [address] [place] [id number] [place] Name: MD Olivarez [place] Position: Physician - Family Med Member Role: Primary Care Provider Address: [address] [place] [address], [place] [address] [place] Care Team Related Persons Name: TENISHA OLSON"
--- OUTSIDE RECORDS SUMMARY | 2024-03-25 04:27 | External Medical Summary | Continuity of Care Document ---
Author Name Unknown Organization [address] [id number] Care Team Providers Care Tar Distributor Operator Name Role Phone Trinidad Olivarez Primary Care Physician [phone] [facility]counter [facility] [id number] Date(s): 11/29/23 - 11/29/[address] [address] [phone] Encounter Diagnosis Body mass index [BMI] 24.0-24.9, adult(Discharge Diagnosis) - 11/29/23 Chronic pain(Discharge Diagnosis) - 11/29/23 Essential hypertension(Discharge Diagnosis) - 11/29/23 Mixed hyperlipidemia(Discharge Diagnosis) - 11/29/23 Erectile dysfunction(Discharge Diagnosis) - 11/29/23 Lumbar radiculopathy, right(Discharge Diagnosis) - 11/30/23 Tobacco user(Discharge Diagnosis) - 11/30/23 (atherosclerosis)(Discharge Diagnosis) - 11/30/23 COPD type B(Discharge Diagnosis) - 11/30/23 Adenocarcinoma, lung(Discharge Diagnosis) - 11/30/23 Discharge Disposition: Home or Self Care Attending Physician: MD Sher, [place] Allergies, Adverse Reactions, Alerts Substance Criticality Severity Reaction Reaction Severity Status lisinopril difficulty fidelina thing Anxiety Confusion Active Assessment and Plan Extracted from: Title:Office Visit Note Author:MD Sher, [facility] Date:11/29/23 1.Essential hypertension Chronic. Stable. Blood pressure 128/70. Continue [id number] mg once a day. Refill of medication sent to the pharmacy today. Monitor blood pressure. Decrease salt intake. Check CMP 2.Mixed hyperlipidemia Chronic.Continue diet and exercise. Continue rosuvastatin 40 mg 1 tablet once a day. Refill of medication sent to the pharmacy. Check fasting lipid profile. 3.Chronic pain Patient takes tizanidine 4 mg 1 tablet every 8 hours as needed. Refill of medication sent to the pharmacy today. He is seeing lumbar spine injection. 4.Erectile dysfunction Chronic. Takes sildenafil 100 mg 1 tabletby mouth as needed. Refill of medication sent to the pharmacy today. 5.Lumbar radiculopathy, right ReviewedOrtho visit note. Follow-up with orthopedic surgeon. 6.Tobacco user Patienttried different medication in the past to quit smoking.All failed. States that he was trying to cut backthe number of cigarettes per day. 7. (atherosclerosis) On aspirin 81 mg once a day. 8.COPD type B Follow-up with pulmonology. Continue Combiventand albuterol inhaleras prescribed by the software tools engineer. 9.Adenocarcinoma, lung ReviewedPulmo office visit note. Follow-up with software tools engineer. Follow-up in 3 monthsfor CPE Follow-up as needed Immunizations Given and Recorded Vaccine Date Status Refusal Reason pneumococcal 23-valent vaccine 06/10/21 Recorded tetanus/diphtheria/pertuss, acel (Tdap) 04/14/15 R ecorded Medications Albuterol (Eqv-ProAir HFA) 90 mcg/inh inhalation aerosol Start: 11/29/23 1:13:00 PM EDT, 1 puff, inhaled, q6h, Disp# 18 g, Refills: 1, Pharmacy: [id number] Start Date: 11/29/23 Status: Ordered aspirin 81 mg oral tablet, chewable Start: 12/28/20 8:34:00 AM EDT, 1 tab, PO, Daily Start Date: 12/28/20 Status: Ordered Combivent Respimat 20 mcg-100 mcg/inh inhalation aerosol INHALE 1 PUFF BY MOUTH AND INTO THE LUNGS EVERY 4 HOURS NEEDED FOR COUGH OR WHEEZE, DYSPNEA Start Date: 04/07/23 Status: Ordered fluticasone 27.5 mcg/inh nasal spray Start: 07/07/23 1:30:00 PM EDT, 2 spray, each nostril, Daily, Disp# 10 g, Refills: 3, PRN: allergy symptoms, Pharmacy: [id number] Start Date: 07/07/23 Status: Ordered ibuprofen 800 mg oral tablet Start: 07/07/23 1:29:00 PM EDT, 1 tab, PO, tid, Disp# 21 tab, Refills: 0, PRN: as needed for pain, Pharmacy: [id number] Start Date: 07/07/23 Stop Date: 07/14/23 Status: Ordered Norvasc 10 mg oral tablet Start: 11/29/23 1:13:00 PM EDT, 1 tab, PO, Daily, Disp# 90 tab, Refills: 1, Pharmacy: [id number] Start Date: 11/29/23 Status: Ordered omeprazole 10 mg oral delayed release capsule Start: 11/29/23 1:13:00 PM EDT, 20 mg =, PO, Daily, Disp# 90 cap, Refills: 1, Pharmacy: [id number] Start Date: 11/29/23 Status: Ordered rosuvastatin 40 mg oral tablet Start: 11/29/23 1:13:00 PM EDT, 1 tab, PO, Daily, Disp# 90 tab, Refills: 1, TAKE 1 TABLET BY MOUTH EVERY EVENING, Pharmacy: [id number] Start Date: 11/29/23 Status: Ordered sildenafil 100 mg oral tablet Start: 11/29/23 1:13:00 PM EDT, 1 tab, PO, Daily, Disp# 20 tab, Refills: 1, PRN: if needed for ERECTILE DYSFUNCTION, Pharmacy: [id number] Start Date: 11/29/23 Status: Ordered tiZANidine 4 mg oral tablet Start: 11/29/23 1:13:00 PM EDT, 1 tab, PO, q8h, Disp# 270 tab, Refills: 1, Pharmacy: [id number] Start Date: 11/29/23 Status: Ordered Tylenol 500 mg oral tablet Start: 12/28/20 8:34:00 AM EDT, 2 tab, PO, q8h, PRN: pain - mild (1-3) Start Date: 12/28/20 Status: Ordered Mental Status 11/29/23 Barriers to Learning one year None evide nt Mandatory Health Literacy Documentation Yes Health Literacy Communication Barriers N ever Primary Language Faroese Problem List Condition Confirmation Course Effective Dates Status Health St atus Informant Erectile dysfunction Confirmed Active (atherosclerosis) Confirmed Active Lumbar radiculopathy, right Confirmed Active Lumbar spinal stenosis Confirmed Active Tobacco user Confirmed Active Diagnosis Diagnosis Type Effective Dates Health Status Clinical Service Informant Body mass index [BMI] 24.0-24.9, adult Discharge Diagnosis 11/29/23 Non-Specified Chronic pain Discharge Diagnosis 11/29/23 Non-Specified Essential hypertension Discharge Diagnosis 11/29/23 Non-Specified Mixed hyperlipidemia Discharge Diagnosis 11/29/23 Non-Specified Erectile dysfunction Discharge Diagnosis 11/29/23 Non-Specified Lumbar radiculopathy, right Discharge Diagnosis 11/30/23 Non-Specified (atherosclerosis) Discharge Diagnosis 11/30/23 Non-Specified COPD type B Discharge Diagnosis 11/30/23 Non-Specified Tobacco user Discharge Diagnosis 11/30/23 Non-Specified Adenocarcinoma, lung Discharge Diagnosis 11/30/23 Non-Specified Procedures Procedure Date Related Diagnosis Body [...] recent to oldest [Reference Range]: 1 Height 172.4 cm (11/29/23 12:57 PM) Patient Weight 73.6 kg (11/29/23 12:57 PM) Body Mass Index 24.76 kg/m2 (11/29/23 12:57 PM) Heart Rate 87 bpm (11/29/23 12:57 PM) Respiratory Rate 20 br/min (11/29/23 12:57 PM) Blood Pressure 128/70mmHg (11/29/23 12:57 PM) Cuff Pulse Pressure 58 mmHg (11/29/23 12:57 PM) Social History Social History Type Response Tobacco Current every day sm oker Smoking Status Current every day he ty smoker Sex Male Sex Representation Male (finding) Implantable Device List Procedure Provider Procedure Date Device Type Site Unknown Unknown 12/22/20 Unknown Unknown Device Identifier Serial Number Lot or Batch Number Manufacturing Date Expiration Date Distinct Identification Code MRI Safety Implantable Status Assigning Authority Unknown Unknown [id number] Unknown 02/14/25 Unknown Unknown Active Unk nown FCM Outpt Note * MD Sher, [place]: PERFORM Event Display: FCM Outpt Note Authored Date: [id number] Chief Complaint medication review and refills. just returned to [facility] from [facility] History of Present Illness 53 y/o Mhere today for follow-up ofchronic medical condition and medication management. -COPD,adenocarcinoma of the lungs. He saw Dr. Yan at [facility] pulmonology,June 2023. Patient wasprescribed Combivent and albuterolforhis COPD(Gold class B). PFT done howed no obstructive lung dysfunction, air trapping, normal DLCO.CT chest June 18 24showed severe centrilobularand paraseptal emphysemabilaterally. Right upper lobe lobectomy with lele in place. 6 mm right lower lobe perifissuralpulmonary nodule, minimal right sidedpleural effusion. No significant mediastinal lymphadenopathy. -Tobacco use disorder. Smoker since 17 years old. Initially, smoking 1 pack per day then reduced to1/2 pack a day. States that he tried Chantix and nicotine gums in the past both did not helped him. Patient was given Wellbutrin by software tools engineer but he is not compliant with the medication. -ED.takes Sildenafil 100 mg. -Hypertension. On amlodipine. BP controlled with medication. Denies adverse reaction. l -Hyperlipidemia. On Atorvastatin 40 mg once a day. -Atherosclerosis. 2018 Aortobifemoral bypass for occlusive disease. 2018 stent placed in right iliac (common and external). -L5-S1 stenosiswith right lower extremity radiculopathy. HesawDr.BillyforRight paramedian L5-S1 interlaminar epidural steroid injection under fluoroscopic guidance. States tat it helps his back pain but wears off after 2 weeks. -Stomach pain. States that his entire right side of abdomen hurts.'feels like there's a fish hookpulling his internal organ', slicing, dagger sensation. It comes and goes. No triggering or aggravating factor. denies any relation to food/ fluid intake. - Hx of IBS. Today patient feels overallgood. States thathe has more energy. He has been exercising. He is eating healthy. States thathe is struggling to quit smoking. Denies fever, headache, dizziness. Denies nasal congestion, ear pain Denies chest pain or shortness of breath Denies nausea or vomiting, diarrhea or constipation Denies dysuria, frequency or urgency of urination Denies blood in the urine or stool Review of Systems See HPI Physical Exam Vitals & Measurements HR:87(Monitored) RR:20 BP:128/70 SpO2:97% HT:172.4cm WT:73.600kg(Dosing) WT:73.6kg BMI:24.76 PHQ2 Data(Data Documented on:11/29/2023 12:57) Emotional health assessment NEGATIVE General: alert and oriented, no acute distress Eye: PERRL, EOMI, normal conjunctiva HENT: normocephalic, TMs clear, normal hearing, moist oral mucosa, no pharyngeal erythema, no sinus tenderness Neck: supple, non-tender, no lymphadenopathy, no thyromegaly Resp: Lungs CTA, non-labored respirations, BS equal, symmetrical expansion CV: normal rate and rhythm, no murmur, no gallop GI: soft, non-tender, non-distended, normal bowel sounds, no organomegaly, + surgical scar : no CVA tenderness MS: normal ROM, normal strength, no tenderness, no swelling, no deformity, normal gait. no spinal tenderness. Integumentary: warm, dry, pink, no cyanosis, intact, moist, no pallor, no rash Neurologic: alert and oriented, normal sensory, normal motor, no focal deficits Psychiatric: appropriate mood and affect Assessment/Plan 1.Essential hypertension Chronic. Stable. Blood pressure 128/70. Continue cgevdapovx24 mg once a day. Refill of medication sent to the pharmacy today. Monitor blood pressure. Decrease salt intake. Check CMP 2.Mixed hyperlipidemia Chronic.Continue diet and exercise. Continue rosuvastatin 40 mg 1 tablet once a day. Refill of medication sent to the pharmacy. Check fasting lipid profile. 3.Chronic pain Patient takes tizanidine 4 mg 1 tablet every 8 hours as needed. Refill of medication sent to the pharmacy today. He is seeing lumbar spine injection. 4.Erectile dysfunction Chronic. Takes sildenafil 100 mg 1 tabletby mouth as needed. Refill of medication sent to the pharmacy today. 5.Lumbar radiculopathy, right ReviewedOrtho visit note. Follow-up with orthopedic surgeon. 6.Tobacco user Patienttried different medication in the past to quit smoking.All failed. States that he was trying to cut backthe number of cigarettes per day. 7. (atherosclerosis) On aspirin 81 mg once a day. 8.COPD type B Follow-up with pulmonology. Continue Combiventand albuterol inhaleras prescribed by the software tools engineer. 9.Adenocarcinoma, lung ReviewedPulmo office visit note. Follow-up with software tools engineer. Follow-up in 3 monthsfor CPE Follow-up as needed Attestation Time spent on pre-visit plannin min Face to face time spent w/ patient:35 min Time spent documenting pertinent clinical information into the EMR:10 min Total time:50 min Problem List/Past Medical History Ongoing (atherosclerosis) Erectile dysfunction Lumbar radiculopathy, right Lumbar spinal stenosis Tobacco user Procedure/Surgical History CT of abdomen and pelvis without contrast| Service Date: 08/30/2022hes x-ray| Service Date:04/12/2022hes x-ray| Service Date: 04/05/2022Ultrasonic guidance for thoracentesis| ServiceDate: 03/28/2022hes X-ray| Service Date: 03/28/2022hes X-ray| Service Date: 03/21/2022hes x-ray| Service Date: 03/07/2022hes X-ray| Service Date: 03/06/2022Lobectomy of lung| Service Date: 03/05/2022hes X-ray| Service Date: 03/05/2022hes X-ray| Service Date: 03/04/2022T guided biopsy of right lung| Service Date: 03/04/2022hes X-ray| Service Date: 2CT of abdomen and pelvis with contrast| Service Date: 02/08/2022ET scan| Service Date: 01/12/2022adioisotope myocardial perfusion stress study| Service Date: 11/30/2021T of neck and thorax| Service Date: 11/08/2021EXTRACRANIAL [...] capsule), 20 mg, PO, Daily, 1 refills rosuvastatin(rosuvastatin 40 mg oral tablet), 40 mg= 1 tab, PO, Daily, 1 refills sildenafil(sildenafil 100 mg oral tablet), 1 tab, PO, Daily, PRN, 1 refills tiZANidine(tiZANidine 4 mg oral tablet), 1 tab, PO, q8h, 1 refills Allergies lisinoprildifficulty breathing, Anxiety, Confusion Social History Smoking Status Current every day heavy smoker Alcohol Use:Current Type:Beer, Wine, Liquor Frequency:Daily [...] due10/15/23and every 1year Due Adult COVID-19 Vaccination due11/29/23Unknown Frequency Adult Social Determinants of Health Screening due11/29/23Unknown Frequency Colorectal Cancer Screening due11/29/23Unknown Frequency Hepatitis C Screening due11/29/23One-time only Pneumococcal Vaccine Adults and Adolescents with Chronic Illness due11/29/23One-time only Shingles Vaccine due11/29/23One-time only Satisfied(in the past 1 year) Satisfied Body Mass Index on11/29/23.Satisfied by WINTER [facility] Electronic Signature on File Electronically Reviewed/Signed by: Trinidad Olivarez MD Author Signature Dt/Tm:11/29/2023 09:28 PM Department of Family Medicine VS Patient Care team information Care Team Personnel Name: Lindsey Ashley Kayla Position: Pharmacist Member Role: Pharmacy - Lifetime Name: PANDA Trevino Terra L Position: Nurse Pract - Vascular Surg Member Role: Lifetime Relationship Address: [address] [place] [address] [place] [address] [place] Name: SHREYA Warren Lynn Position: Physician Mental Health Aide Exempt - Vasc Surg Member Role: Lifetime Relationship Address: [address] [facility] [address] [place] [address] [place] Name: MD Olivarez [place] Position: Physician - Family Med Member Role: Primary Care Provider Address: [address] [place] [address], [place] [address] Care Team Related Persons Name: TENISHA OLSON"
== END 2024-03-24 13:22 | disposition home or self-care (01) ==
LOC: ED 19:43 → OR 22:05 → 3N 22:05 → OR 22:18